=== PATIENT | male | born 1955 | race Caucasian/White ===

== ENCOUNTER 2019-09-28 06:00 | Outpatient (RCR) | payer MEDICAID, SELFPAY | END 2019-10-28 00:01 | LOC: SPT 06:00 | PROVIDERS: Family Provider Nurse Practitioner; Visit Provider Nurse Practitioner Family | DX: I69.30 Unspecified sequelae of cerebral infarction (principal); M25.551 Pain in right hip; M54.5 Low back pain | CPT/HCPCS: 97110 ×2 ==

== ENCOUNTER 2019-10-29 06:00 | Outpatient (RCR) | payer MEDICAID, SELFPAY | END 2019-11-28 23:59 | disposition home or self-care (01) | LOC: SPT 06:00 | PROVIDERS: Family Provider Nurse Practitioner; PCP Nurse Practitioner; Visit Provider Nurse Practitioner Family | DX: M54.5 Low back pain (principal); M25.551 Pain in right hip ==

== ENCOUNTER 2020-06-23 08:30 | Outpatient (CLI) | payer MEDICARE, MEDICAID, SELFPAY ==
--- NOTE | 2020-06-23 08:35 | USCV_ITS ---
Moisés Mann Age: 65 Gender: M : 1955 Exam Date: 06/23/2020 08:51 Ordering Phys: Daksha Bhatia APN Technologist: Yohana Peterson [place] [facility] [place]: AORTA SCREENING HISTORY: Diameter (cm) AP x Transverse x Length Velocity (cm/s) Waveform Prox Aorta: 1.26 x 1.61 x 33.10 Mid Aorta: 1.75 x 2.09 x 38.45 Distal Aorta: 1.47 x 1.85 x 44.60 Right Iliac Prox: 0.72 x 0.75 x 216.30 Left Iliac Prox: 0.65 x 0.89 x 138.90 Stent Prox Landing x x Aneurysmal Sac Max x x Lt Lat Sac Dim Rt Lat Sac Dim Stent Dist Landing x x Right Iliac Stent x x Left Iliac Stent x x Right Renal Art Left Renal Art FINDINGS: Mild to moderate diffuse plaques in the abdominal aorta. Elevated Doppler velocities in the right proximal common iliac artery CONCLUSIONS #1. No evidence of any abdominal aortic aneurysm. #2. Mild to moderate diffuse plaques in the abdominal aorta. #3. Elevated velocity in the right proximal common iliac artery suggestive of greater than 50% stenosis No similar previous studies are available for comparison Dr Maria Esther Smith MD [facility] (Electronically Signed) Final Date: 23 June 2020 18:15 S
--- NOTE | 2020-06-23 08:35 | XRR_ITS ---
PROCEDURE INFORMATION: Exam: XR Chest, 2 Views Exam date and time: 06/23/2020 9:18 AM Age: 65 years old Clinical indication: Condition or disease; Lung condition and disease; Asthma; Severity not specified; Shortness of breath TECHNIQUE: Imaging protocol: XR of the chest Views: 2 views. COMPARISON: CR Chest 1 [place] [id number] 05/06/2015 8:55 PM FINDINGS: Lungs: Lungs are well aerated without a focal area of consolidation. Pleural space: Unremarkable. No pleural effusion. No pneumothorax. Heart/Mediastinum: Unremarkable. No cardiomegaly. Bones/joints: Numerous old rib fractures on the right XR/XR chest 2V* [id number] IMPRESSION: Lungs are well aerated without a focal area of consolidation.
== END 2020-06-23 08:31 | disposition home or self-care (01) ==
LOC: US 08:31
PROVIDERS: PCP Nurse Practitioner; Visit Provider Nurse Practitioner
DX: Z13.6 Encounter for screening for cardiovascular disorders (principal); Z72.0 Tobacco use
CPT/HCPCS: 71046; 76706

== ENCOUNTER 2020-08-11 09:33 | Outpatient (CLI) | payer MEDICARE, MEDICAID, SELFPAY ==
--- NOTE | 2020-08-11 10:53 | PFTS_ITS ---
Date of Study:08/11/20 Date of Dictation: MECHANICS: Forced vital capacity (FVC) is . Forced expiratory volume in one second (FEV1) is . FEV1/FVC is . FLOW VOLUME LOOP: . LUNG VOLUMES: Total lung capacity (TLC) is . Residual volume (RV) is . DIFFUSING CAPACITY FOR CARBON MONOXIDE: . INTERPRETATION: The pulmonary function tests are . mechanics and lung volumes. Gas exchange (DLCO) is . MTDD
--- NOTE | 2020-08-11 14:22 | PFTS_ITS ---
Date of Study:08/11/20 Date of Dictation: MECHANICS: Forced vital capacity (FVC) is reduced. Forced expiratory volume in one second (FEV1) is reduced. FEV1/FVC is reduced. FLOW VOLUME LOOP: Reduced flow at all lung volumes. LUNG VOLUMES: Total lung capacity (TLC) is normal. Residual volume (RV) is increased. DIFFUSING CAPACITY FOR CARBON MONOXIDE: Mildly reduced. INTERPRETATION: The pulmonary function tests are consistent with severe airflow obstruction. Lung volumes are consistent with air trapping. Gas exchange (DLCO) is mildly reduced. MTDD
== END 2020-08-11 09:34 | disposition home or self-care (01) ==
LOC: RT 09:36
PROVIDERS: PCP Nurse Practitioner; Visit Provider Nurse Practitioner
DX: J45.909 Unspecified asthma, uncomplicated (principal)
CPT/HCPCS: 94010; 94726; 94729

== ENCOUNTER 2020-10-05 13:31 | Outpatient (CLI) | payer MEDICARE, MEDICAID, SELFPAY ==
--- NOTE | 2020-10-05 13:30 | USCV_ITS ---
Moisés Mann Age: 65 Gender: M : 1955 Exam Date: 10/05/2020 14:11 Ordering Phys: Leonardo Sylvester MD Technologist: Steven Vasquez Exam Location: [facility] – [place] Indication: CHEST PAIN BP: 135 / 78 HR: 62 Rhythm: Sinus Technical Quality: Fair MEASUREMENTS (Male / Female) Normal Values 2D ECHO LV Diastolic Diameter PLAX 3.6 cm 4.2 - 5.9 / 3.9 - 5.3 cm LV Systolic Diameter PLAX 2.1 cm IVS Diastolic Thickness 1.0 cm 0.6 - 1.0 / 0.6 - 0.9 cm IVS Systolic Thickness 1.5 cm LVPW Diastolic Thickness 1.0 cm 0.6 - 1.0 / 0.6 - 0.9 cm LVPW Systolic Thickness 1.3 cm LVOT Diameter 2.0 cm LV Ejection Fraction 2D Teich 73.4 % LV Ejection Fraction MOD 2C 68.5 % LV Ejection Fraction 2C AL 68.4 % LA Diameter 3.3 cm LA Width 3.3 cm LA Height 4.5 cm RA Width 3.4 cm RA Height 3.7 cm Aorta at Sinotubular Diameter 2.2 cm M-MODE LV Diastolic Diameter MM 5.2 cm 4.2 - 5.9 / 3.9 - 5.3 cm LV Systolic Diameter MM 4.0 cm LV Ejection Fraction MM Teich 44.1 % IVS Diastolic Thickness MM 1.0 cm 0.6 - 1.0 / 0.6 - 0.9 cm IVS Systolic Thickness MM 1.5 cm LVPW Diastolic Thickness MM 1.5 cm 0.6 - 1.0 / 0.6 - 0.9 cm LVPW Systolic Thickness MM 1.8 cm RV Diastolic Diameter MM 1.2 cm Aortic Annulus Diameter 3.5 cm LA Ao Ratio MM 1.1 MV E Point Septal Separation 0.7 cm DOPPLER AV Peak Velocity 145.0 cm/s LVOT Peak Velocity 100.0 cm/s AV Area Cont Eq vti 2.3 cm squared AV Area Cont Eq pk 2.2 cm squared MV Area PHT 5.0 cm squared Mitral E to A Ratio 1.1 MV E' Velocity 48.0 cm/s Mitral E to MV E' Ratio 8.4 Mitral E to LV E' Lateral Ratio 8.3 Mitral E to LV E' Septal Ratio 8.7 TR Peak Velocity 117.3 cm/s TR Peak Gradient 5.5 mmHg TV Peak E Velocity 93.0 cm/s Right Atrial Pressure 3.0 mmHg Pulmonary Artery Systolic Pressu 8.5 mmHg FINDINGS Left Ventricle Normal left ventricular size and systolic function, EF 71 %. No regional wall motion abnormalities. Right Ventricle The right ventricle is normal in size and function. Right Atrium The right atrium is normal in size. Left Atrium The left atrium is normal in size. Mitral Valve Trace mitral valve regurgitation. Aortic Valve Thickened aortic valve. Tricuspid Valve No gross abnormalities noted Pulmonic Valve No gross abnormalities noted Pericardium Normal pericardium without effusion. Aorta Normal ascending aorta dimension. CONCLUSIONS Normal left ventricular size and systolic function, EF 71 %. No regional wall motion abnormalities. Trace mitral valve regurgitation. Thickened aortic valve. There is no pericardial effusion. There are no intracardiac masses. No previous study is available for comparison. Dr Maria Esther Smith MD [facility] (Electronically Signed) Final Date: 06 October 2020 09:42 S
--- NOTE | 2020-10-05 13:51 | CT_ITS ---
WS: [id number] LDCT LUNG CANCER SCREENING HISTORY: NICOTINE DEPENDENCE TECHNIQUE: Axial imaging performed from the apices to 1 cm below the costophrenic angles. Coronal and sagittal reformats are submitted with axial MIP series. All CT scans at [facility] use at least one of these dose optimization techniques: automated exposure control; mA and/or kV adjustment per patient size (includes targeted exams where dose is matched to clinical indication); or iterativ e reconstruction. DLP: 54.98 mGy.cm DIvol: 1.58 mGy COMPARISON: None available. Diagnostic quality: Satisfactory Lung Nodules: Partially calcified 3 mm nodule LEFT lower lobe, image 164 of series 3. Lungs: Pulmonary hyperexpansion. Linear areas of scarring at the apices. Heart: Normal size heart. Mild coronary artery atherosclerosis. Other findings: Mild atherosclerosis thoracic aorta. There is mild ectasia with no aneurysm. Normal s ize pulmonary artery. Mild increase in thoracic kyphosis. No osteoblastic or osteolytic bone disease. CT/CT lung screening [id number] IMPRESSION: LUNG-RADS: 1-Negative FOLLOW UP: 12 Month: Continue annual screening with LDCT OTHER FINDINGS (S MODIFIER): None.
== END 2020-10-05 13:32 | disposition home or self-care (01) ==
LOC: RAD 13:38
PROVIDERS: PCP Nurse Practitioner; Visit Provider Internal Medicine Pulmonary Disease
DX: Z12.2 Encounter for screening for malignant neoplasm of respiratory organs (principal); R06.02 Shortness of breath; F17.210 Nicotine dependence, cigarettes, uncomplicated; I08.0 Rheumatic disorders of both mitral and aortic valves; R91.1 Solitary pulmonary nodule; I25.10 Atherosclerotic heart disease of native coronary artery without angina pectoris; I70.0 Atherosclerosis of aorta; I77.819 Aortic ectasia, unspecified site
CPT/HCPCS: 93306; G0297

== ENCOUNTER 2021-08-03 09:10 | Outpatient (CLI) | payer MEDICARE, MEDICAID, SELFPAY ==
--- NOTE | 2021-08-03 09:30 | USCV_ITS ---
Moisés Mann Age: 66 Gender: M : 1955 Exam Date: 08/03/2021 09:33 Ordering Phys: Daksha Bhatia APN Technologist: [place] [facility] [place]: SCREENING HISTORY: Diameter (cm) AP x Transverse x Length Velocity (cm/s) Waveform Prox Aorta: 1.84 x 2.02 x 51.90 Biphasic Mid Aorta: 2.03 x 2.00 x 51.90 Biphasic Distal Aorta: 1.44 x 1.70 x 56.10 Biphasic Right Iliac Prox: 0.78 x 1.06 x 182.00 Biphasic Left Iliac Prox: 0.81 x 1.25 x 162.00 Biphasic Stent Prox Landing x x Aneurysmal Sac Max x x Lt Lat Sac Dim Rt Lat Sac Dim Stent Dist Landing x x Right Iliac Stent x x Left Iliac Stent x x Right Renal Art Left Renal Art FINDINGS: Comparison:. 06/23/20. Limited evalualtion due to body habitus. Ectatic abdominal aorta with evidence of atherosclerotic plaque noted. Normal Doppler flow velocites noted throught the aorta and common iliac arteries. CONCLUSIONS Ectatic abdominal aorta with evidence of atherosclerotic plaque noted. Limited evaluation but not aneurysm seen. Dr. Tiffanie Bran DO (Electronically Signed) Final Date: 03 August 2021 10:22 S
== END 2021-08-03 09:11 | disposition home or self-care (01) ==
LOC: US 09:12
PROVIDERS: PCP Nurse Practitioner; Visit Provider Nurse Practitioner
DX: Z13.6 Encounter for screening for cardiovascular disorders (principal); I77.811 Abdominal aortic ectasia
CPT/HCPCS: 76706

== ENCOUNTER 2021-11-02 06:00 | Outpatient (RCR) | payer MEDICARE, MEDICAID, SELFPAY | END 2021-11-28 23:59 | disposition home or self-care (01) | LOC: SOT 06:00 | PROVIDERS: PCP Nurse Practitioner; Visit Provider Family Medicine | DX: G81.91 Hemiplegia, unspecified affecting right dominant side (principal) | CPT/HCPCS: 97167 ==

== ENCOUNTER 2022-04-06 08:09 | Outpatient (CLI) | payer MEDICARE, MEDICAID, SELFPAY ==
--- NOTE | 2022-04-06 08:19 | USCV_ITS ---
Moisés Mann Age: 67 Gender: M : 1955 Exam Date: 04/06/2022 08:49 Ordering Phys: Daksha Bhatia APN Technologist: Elvis Calloway Exam Location[place] [facility] [place]ication: screening HISTORY: Diameter (cm) AP x Transverse x Length Velocity (cm/s) Waveform Prox Aorta: 1.60 x 1.96 x 50.50 Mid Aorta: 1.92 x 2.02 x 59.10 Distal Aorta: 2.16 x 2.26 x 40.00 Right Iliac Prox: 0.92 x 1.34 x 133.20 Left Iliac Prox: 1.03 x 0.96 x 106.30 Stent Prox Landing x x Aneurysmal Sac Max x x Lt Lat Sac Dim Rt Lat Sac Dim Stent Dist Landing x x Right Iliac Stent x x Left Iliac Stent x x Right Renal Art Left Renal Art FINDINGS: CONCLUSIONS Minimal arteriovascular disease within the abdominal aorta. No evidence of abdominal aortic or bilateral iliac aneurysm. Sriram Pelletier MD (Electronically Signed) Final Date: 06 April 2022 10:36 S
== END 2022-04-06 08:10 | disposition home or self-care (01) ==
LOC: RAD 08:12
PROVIDERS: PCP Nurse Practitioner; Visit Provider Nurse Practitioner
DX: Z13.6 Encounter for screening for cardiovascular disorders (principal)
CPT/HCPCS: 76706

== ENCOUNTER → 2023-01-18 10:37 | Outpatient (BNVA) | payer MEDICARE, MEDICAID, SELFPAY | PROVIDERS: PCP Nurse Practitioner Family; Visit Provider Internal Medicine Cardiovascular Disease | DX: R55 Syncope and collapse (principal) | CPT/HCPCS: 93225 ==

== ENCOUNTER 2023-04-10 08:48 | Outpatient (CLI) | payer MEDICARE, MEDICAID, SELFPAY ==
--- NOTE | 2023-04-10 09:06 | USCV_ITS ---
Moisés Mann Age: 68 Gender: M : 1955 Exam Date: 04/10/2023 09:33 Ordering Phys: Osiris Quispe NP Technologist: Exam Location: [facility] [place] Indication: chest pain BP: 132 / 74 HR: 56 Rhythm: Sinus Technical Quality: Adequate MEASUREMENTS (Male / Female) Normal Values 2D ECHO LV Diastolic Diameter PLAX 3.3 cm 4.2 - 5.9 / 3.9 - 5.3 cm LV Systolic Diameter PLAX 2.2 cm IVS Diastolic Thickness 1.2 cm 0.6 - 1.0 / 0.6 - 0.9 cm IVS Systolic Thickness 1.3 cm LVPW Diastolic Thickness 1.3 cm 0.6 - 1.0 / 0.6 - 0.9 cm LVPW Systolic Thickness 1.2 cm LVOT Diameter 2.0 cm LV Ejection Fraction 2D Teich 63.8 % LV Ejection Fraction MOD 2C 82.9 % LV Ejection Fraction 2C AL 83.4 % LA Diameter 3.0 cm IVC Diameter 0.9 cm M-MODE Aortic Annulus Diameter 3.2 cm LA Ao Ratio MM 0.9 MV E Point Septal Separation 1.3 cm DOPPLER AV Peak Velocity 165.0 cm/s LVOT Peak Velocity 112.0 cm/s AV Area Cont Eq vti 2.7 cm squared AV Area Cont Eq pk 2.2 cm squared MV Area PHT 3.4 cm squared Mitral E to A Ratio 1.6 MV E' Velocity 60.0 cm/s Mitral E to MV E' Ratio 10.1 Mitral E to LV E' Lateral Ratio 9.9 Mitral E to LV E' Septal Ratio 10.4 TR Peak Velocity 158.3 cm/s TR Peak Gradient 10.0 mmHg TV Peak E Velocity 97.0 cm/s Right Atrial Pressure 3.0 mmHg Pulmonary Artery Systolic Pressu 13.0 mmHg RV Acceleration Time 0.1 s FINDINGS Left Ventricle Left ventricle is normal in size. LV systolic function is normal with EF of 55 to 60%. No regional wall motion abnormalities are seen. Right Ventricle Normal in size and function Right Atrium Normal in size Left Atrium Normal in size Mitral Valve Structurally normal mitral valve. Trace mitral regurgitation. Aortic Valve Aortic valve is thickened and calcified. No significant stenosis or regurgitation. Tricuspid Valve Mild tricuspid regurgitation. Insufficient TR jet to evaluate RVSP. Pulmonic Valve Not well visualized Pericardium Normal Aorta Normal in size IVC Appears to be normal CONCLUSIONS LV systolic function is normal with EF of 55 to 60%. Trace mitral regurgitation Mild tricuspid regurgitation No comparison studies are available Jeff English MD (Electronically Signed) Final Date: 21 April 2023 12:59 S
== END 2023-04-10 08:49 | disposition home or self-care (01) ==
LOC: RAD 08:49
PROVIDERS: PCP Nurse Practitioner Family; Visit Provider Nurse Practitioner Family
DX: I10 Essential (primary) hypertension (principal); R07.9 Chest pain, unspecified; R55 Syncope and collapse; R60.9 Edema, unspecified; I07.1 Rheumatic tricuspid insufficiency
CPT/HCPCS: 93306

== ENCOUNTER 2023-05-10 09:46 | Outpatient (CLI) | payer MEDICARE, MEDICAID, SELFPAY ==
--- NOTE | 2023-05-10 09:57 | CT_ITS ---
WS: [id number] LDCT LUNG CANCER SCREENING TECHNIQUE: Noncontrast CT of the chest with coronal and sagittal reformatted images. CLINICAL INFORMATION: NICOTINE DEPENDENCE,CIGARETTES COMPARISON: October 05, 2020 DLP: 52.40 mGy.cm DIvol: Mean CTDIvol: 1.00 (mGy) All CT scans at [facility] use at least one of these dose optimization techniques: automat ed exposure control; mA and/or kV adjustment per patient size (includes targeted exams where dose is matched to clinical indication); or iterative reconstruction. FINDINGS: Moderate chronic emphysematous changes. Hazy slightly irregular spiculated opacity RIGHT up per lobe measuring 9 mm is new from previous. A few additional tiny subcentimeter nodules in RIGHT upper lobe some in a subpleural location. New cl uster of nodular opacities in the RIGHT upper lobe anteriorly adjacent to the fissure likely inflamma tory. Additional hazy opacities with a few micronodules the RIGHT middle lobe. Hazy groundglass opacity in the LEFT upper lobe anteriorly measuring 8.5 mm is indeterminant but may represent fibrosis. Noncalcified nodule LEFT upper lobe measuring 4 mm. Additional noncalcified nodu le LEFT upper lobe along the mediastinum measuring 3 mm. Normal caliber thoracic aorta. Aortic calcification. No mediastinal or hilar lymphadenopathy. Coronar y calcification. Aberrant RIGHT subclavian artery. No mediastinal or hilar lymphadenopathy. No axilla ry lymphadenopathy. Adrenal glands are normal. Normal GE junction. Mild thoracic kyphosis. Mild thoracic curve. CT/CT lung screening [id number] IMPRESSION: 1. New hazy groundglass opacity RIGHT upper lobe is new from previous and inde terminant. Measures approximately 9 mm recommend 3 month follow-up. 2. Additional subcentimeter tiny nodules bilaterally. 3. New hazy opacities and small clustered micronodules RIGHT upper lobe anter iorly and RIGHT middle lobe likely inflammatory. 4. New hazy groundglass opacity LEFT upper lobe anteriorly abutting the pleura . This measures 8.4 mm. Recommend 3 month follow-up. LUNG-RADS: 4A-Probably Suspicious FOLLOW UP: 3 Month LDCT
== END 2023-05-10 09:47 | disposition home or self-care (01) ==
LOC: RAD 09:50
PROVIDERS: PCP Nurse Practitioner Family; Visit Provider Nurse Practitioner Family
DX: Z12.2 Encounter for screening for malignant neoplasm of respiratory organs (principal); F17.210 Nicotine dependence, cigarettes, uncomplicated
CPT/HCPCS: 71271

== ENCOUNTER 2023-05-16 07:46 | Outpatient (CLI) | payer MEDICARE, MEDICAID, SELFPAY ==
--- NOTE | 2023-05-16 | ECG_ITS ---
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 Interpretive Statements NAME OF STUDY: LEXISCAN SESTAMIBI STRESS TEST INDICATION: Shortness of Breath, PROCEDURE: At the baseline, the EKG revealed sinus bradycardia with a normal ST Ts.. The baseline heart was 59 bpm with a blood pressue of 157/89 mm of Hg Lexiscan was infused over a period of 20 seconds. A total of 0.4 milligrams of Lexiscan was infused. The stress phase was continued for a total of 5 minutes. Heart rate at the end of the stress phase was 84 bpm with a blood pressure 141/55 mm of Hg. The EKG at the peak infusion revealed no significant changes. Sestamibi was injected 20 seconds after the Lexiscan infusion. Heart rate at the end of the recovery phase was 68 bpm with a blood pressure of 118/92 mm of Hg. CONCLUSION: 1. No significant EKG changes with the LexiScan infusion 2. No LexiScan induced chest pain or cardiac arrhythmia 3. Normal blood pressure and heart rate response 4. Sestamibi/sestamibi perfusion scan pending; see separate report. Electronically Signed On 05-24-2023 8:45:09 CDT by Maria Esther Smith M.D. [id number]
[2023-05-16 07:54] VITALS: BMI 24.9
--- NOTE | 2023-05-16 07:55 | NMCV_ITS ---
NM lori perf SPECT r/s* [id number] Moisés Mann Age: 68 Gender: M : 1955 Exam Date: 05/16/2023 09:04 Ordering Phys: Osiris Quispe NP Technologist: MARISSA Waddell Exam Location: [facility] Indications: SHORTNESS OF BREATH SUPRACENTRICULAR TACHYCARDIA STRESS TEST Please see separate stress test report in [facility] for full findings IMAGE PROTOCOL Rest/Stress 1 Lexiscan Day Radiopharmaceutical Dose (mCi) Administration Site Administered by Rest: Tc-99m 10.7 IV MARISSA Humphreys Sestamibi Stress:Tc-99m 32.4 IV MARISSA Humphreys Sestamibi Rest: 16-May-2023 60 Discovery 630 Stress: 16-May-2023 30 Discovery 630 0.4mg Lexiscan. Images obtained in supine and prone position. SPECT RESULTS Technical Quality: Excellent Raw Data Analysis: Normal Image Corrections: No attenuation or motion correction applied Summed Stress Score: 5 Summed Rest Score: 6 Summed Difference Score: 0 PERFUSION FINDINGS A small area of minimal to moderately decreased tracer uptake in the inferior and apical lateral regions with no significant reversibility FUNCTIONAL RESULTS (calculated via Gated SPECT) Stress Image LV EF (%): 81 Stress EDV (mL):57 TID: 1.12 Stress ESV (mL):11 FUNCTIONAL FINDINGS: Segmental wall motion analysis revealing no gross wall motion abnormalities IMPRESSIONS 1. Myocardial perfusion imaging revealing a small area of persistent decreased tracer uptake in the inferior and apical lateral regions suggesting myocardial scarring versus attenuation artifact. 2. Normal LV ejection fraction of 81%. 3. LV wall motion analysis revealing no gross wall motion abnormalities. 4. Normal LV volume Low probability for coronary ischemia, based on the above findings. No similar previous studies are available for comparison Dr Maria Esther Smith MD [facility] (Electronically Signed) Final Date: 16 May 2023 20:16 S
[2023-05-16] MEDS: regadenoson 0.4 Mg/5 ml Syringe IVP (09:31)
[2023-05-16 10:00] VITALS: BP 159/92; PULSE 68
== END 2023-05-16 07:47 | disposition home or self-care (01) ==
LOC: CDL 07:47
PROVIDERS: PCP Nurse Practitioner Family; Visit Provider Nurse Practitioner Family
DX: R06.02 Shortness of breath (principal)
CPT/HCPCS: 36415; 78452; 93017; 96374; A9500; J2785

== ENCOUNTER → 2023-06-13 10:21 | Outpatient (BNVA) | payer MEDICARE, MEDICAID, SELFPAY | PROVIDERS: PCP Nurse Practitioner Family; Visit Provider Internal Medicine Cardiovascular Disease | DX: J43.9 Emphysema, unspecified (principal); F17.210 Nicotine dependence, cigarettes, uncomplicated | CPT/HCPCS: 99203 ==

== ENCOUNTER → 2023-06-25 14:11 | Outpatient (BNVA) | payer MEDICARE, MEDICAID, SELFPAY | PROVIDERS: PCP Nurse Practitioner Family; Visit Provider Internal Medicine Pulmonary Disease | DX: J30.2 Other seasonal allergic rhinitis (principal); R91.8 Other nonspecific abnormal finding of lung field; J43.9 Emphysema, unspecified; Z71.6 Tobacco abuse counseling; F17.210 Nicotine dependence, cigarettes, uncomplicated | CPT/HCPCS: 99214 ==

== ENCOUNTER 2023-07-17 08:27 | Outpatient (CLI) | payer MEDICARE, MEDICAID, SELFPAY ==
[2023-07-17 09:02] VITALS: PULSE 61; RESP 18; O2SAT 97
[2023-07-17] MEDS: albuterol 2.5 mg/3 mL Neb INHALATION (09:02)
[2023-07-17 09:07] VITALS: PULSE 56
== END 2023-07-17 08:28 | disposition home or self-care (01) ==
LOC: RT 08:29
PROVIDERS: PCP Nurse Practitioner Family; Visit Provider Internal Medicine Pulmonary Disease
DX: R06.02 Shortness of breath (principal)
CPT/HCPCS: 94060; 94618; 94726; 94729; J7613

== ENCOUNTER 2023-07-31 14:41 | Outpatient (CLI) | payer MEDICARE, MEDICAID, SELFPAY ==
--- NOTE | 2023-07-31 14:30 | CT_ITS ---
WS: [id number] CT CHEST TECHNIQUE: Noncontrast CT of the chest with coronal and sagittal reformatted images. CLINICAL INFORMATION: f/u abnormal lung screen COMPARISON: CT 05/10/2023 DLP: 369.[address] scans at [facility] use at least one of these dose optimization techniques: automated e xposure control; mA and/or kV adjustment per patient size (includes targeted exams where dose is matc hed to clinical indication); or iterative reconstruction. FINDINGS: The previously described groundglass opacity RIGHT upper lobe measuring 9 mm has resolved. Additional hazy opacities in the RIGHT upper lobe anteriorly have resolved. Previously described grou ndglass opacity LEFT upper lobe anteriorly measuring 8 mm also appears resolved. Stable pleural thickening in the lung apices. Stable scattered tiny subcentimeter micronodules bilate rally. No new suspicious pulmonary parenchymal opacities. Moderate chronic emphysematous changes. Aberrant RIGHT subclavian artery. Aortic calcification. Coron gonzalez calcification. No mediastinal or hilar lymphadenopathy. No axillary lymphadenopathy. Adrenal glands are normal. Normal GE junction. IMPRESSION: 1. Previously described 8 to 9 mm hazy opacities in the upper lobes have resolved and were likely in flammatory. 2. No other significant change compared to previous. 3. Few scattered tiny micronodules similar to previous. 4. No mediastinal or hilar lymphadenopathy. 5. Recommend continued annual LDCT.
== END 2023-07-31 14:42 | disposition home or self-care (01) ==
PROVIDERS: PCP Nurse Practitioner Family; Visit Provider Internal Medicine Pulmonary Disease
DX: R91.8 Other nonspecific abnormal finding of lung field (principal)
CPT/HCPCS: 71250

== ENCOUNTER 2023-12-31 11:10 | Inpatient (IN) | payer OTHER, MEDICAID, SELFPAY ==
[2023-12-31] VITALS (15 sets, daily range): BP systolic 100–133; BP diastolic 51–65; PULSE 51–93; RESP 18–28; TEMP 36.4–36.8; O2SAT 90–98; BMI 25.0; BMI 25.2
--- NOTE | 2023-12-31 11:15 | ECG_ITS ---
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 Measurements Intervals [place] Rate: 53 P: 56 AL: 137 QRS: 66 QRSD: 88 T: 59 QT: 421 QTc: 399 Interpretive Statements SINUS BRADYCARDIA Compared to ECG 05/06/2015 20:40:06 Sinus rhythm no longer present Electronically Signed On 12-31-2023 13:29:08 [employer] MANAGER by Jeff English M.D. [id number] f
--- NOTE | 2023-12-31 11:20 | XRR_ITS ---
PROCEDURE INFORMATION: Exam: XR Chest Exam date and time: 12/31/2023 11:31 AM Age: 68 years old Clinical indication: Dyspnea TECHNIQUE: Imaging protocol: Radiologic exam of the chest. Views: 1 view. COMPARISON: CT chest con [id number] 07/31/2023 3:01 PM FINDINGS: Lungs: Patchy bilateral infiltrates, left side greater than right. Pleural spaces: Unremarkable. No pleural effusion. No pneumothorax. Heart/Mediastinum: Subtle right-sided hilar lymphadenopathy, most likely reactive. Bones/joints: Unremarkable. XR/XR chest 1V portable [id number] IMPRESSION: 1. Patchy bilateral infiltrates, left side greater than right. 2. Subtle right-sided hilar lymphadenopathy, most likely reactive.
--- NOTE | 2023-12-31 11:23 | W.ED.SOB ---
HPI - SOB/Dyspnea General: Chief Complaint: Shortness of Breath/Dyspnea Stated Complaint: resp distress Time Seen by Provider: 12/31/23 11:11 Source: patient Mode of arrival: ambulatory History of Present Illness: HPI Narrative: 68-year-old male comes into the emergency room history of COPD worsening breathing for the last several days he has noticed improvement since he was given nebulizers and route he has a low-grade fever at home. Mildly productive cough he was given albuterol and Solu-Medrol and route. On arrival here he was initially on oxygen 2 L by nasal cannula he does not normally wear oxygen oxygen was stopped and he maintains his sats in the low 90s he denies chest pain. MD elicited complaint: shortness of breath Pertinent past history: COPD Timing: constant Severity: mild Exacerbating factors: nothing Relieving factors: nothing Known history of: COPD Associated symptoms: Deny abdominal pain, chest congestion, chest pain, cough, diaphoresis, dizziness, extremity pain, fever(s), hemoptysis, lightheadedness, myalgias, nausea, orthopnea, palpitations, paresthesias, polydipsia, polyuria, rash, sense of impending doom, syncope or vomiting Treatment prior to arrival: none Review of Systems Const: Denies: fever(s), chills or diaphoresis Card: Denies: chest pain, palpitations, lightheadedness, syncope or orthopnea Resp: Denies: dyspnea, hemoptysis or chest congestion GI: Denies: abdominal pain, nausea or vomiting : Denies: dysuria, urinary frequency or urinary urgency Musc: Denies: neck pain, back pain or extremity pain Skin/Breast: Denies: rash Neuro: Denies: dizziness Endo: Denies: polyuria or polydipsia [facility] PFSH: Medical History SOB (shortness of breath) Social History Smoking and tobacco/nicotine status: current every day tobacco/nicotine user cigarettes Packs smoked per day: 1 [ Other cigarette details: [id number]] Quit status (tobacco/nicotine): has tried quititng Second hand smoke exposure: Yes Alcohol intake: current Alcohol intake frequency: 0-2 Drinks per Day Substance/Drug Use: former Lives independently: Yes Household members: none Marital status: Single service: Yes Current occupational status: disabled Do you think of yourself as: Straight/Heterosexual Current gender identity: Male Physical Exam Const: COMMON NORMALS: no acute distress GENERAL APPEARANCE: cooperative and comfortable ORIENTATION/CONSCIOUSNESS: Yes awake, Yes oriented to person, Yes oriented to place and Yes oriented to time HENMT: COMMON NORMALS: normocephalic, atraumatic and hearing grossly normal bilaterally HEAD & SCALP: normocephalic and atraumatic Resp: COMMON NORMALS: normal respiratory effort, No retractions, No use of accessory muscles and clear to auscultation bilaterally AUSCULTATION: clear to auscultation bilaterally Cardio: COMMON NORMALS: regular rate, regular rhythm and No murmurs present (Cardio) RATE: regular rate RHYTHM: regular rhythm GI: COMMON NORMALS: Soft to palpation and No hepatosplenomegaly present AUSCULTATION: Yes normoactive bowel sounds PALPATION: Yes Soft to palpation, No Tenderness to palpation present (GI), No Guarding due to palpation present (GI) and Yes No hepatosplenomegaly present Extremity: COMMON NORMALS: normal to inspection, capillary refill normal, no clubbing, cyanosis or edema, no calf tenderness and no pedal edema Neuro: SENSORIUM/ORIENTATION: Yes oriented to person, Yes oriented to place and Yes oriented to time Skin: COMMON NORMALS: no rashes or lesions noted GENERAL SKIN EXAM: no rashes or lesions noted Course Vital Signs: Vital signs: Vital Signs Temperature 98.2 F 12/31/23 11:17 Pulse Rate 69 12/31/23 14:42 Respiratory Rate 22 H 12/31/23 12:14 Blood Pressure 133/51 12/31/23 13:14 Pulse Oximetry 90 12/31/23 14:42 Oxygen Delivery Me thod Nasal Cannula 12/31/23 14:42 Oxygen Flow Rate 4 12/31/23 14:42 MDM - SOB/Dyspnea Medical Decision Making Exacerbation COPD appears to have pneumonia and is rebounding rather quickly did receive steroids and route by EMS. Will admit for aggressive pulmonary toilet. IV antibiotics nebulizers and IV steroids. Differential Diagnosis Likely acute exacerbation of chronic obstructive airways disease and community acquired pneumonia Medical Records I reviewed the patient's medical records. Lab Data I reviewed the patient's lab results. 12/31/23 11:36 12/31/23 11:36 Labs/Radiology: Radiology Impressions Chest X-Ray 12/31/23 11:20 IMPRESSION: 1. Patchy bilateral infiltrates, left side greater than right. 2. Subtle right-sided hilar lymphadenopathy, most likely reactive. Laboratory Results WBC 14.30 10^3/uL (3.29-11.43) H 12/31/23 11:36 RBC 3.66 10^6/uL (3.85-5.65) L 12/31/23 11:36 Hgb 10.60 g/dL (11.27-16.99) L 12/31/23 11:36 Hct 32.3 % (37-53) L 12/31/23 11:36 MCV 88.3 fl (82-101) 12/31/23 11:36 MCH 29.0 pg (27-33) 12/31/23 11:36 MCHC 32.8 g/dL (30-55) 12/31/23 11:36 RDW 13.9 % (12.1-15.1) 12/31/23 11:36 Plt Count 348 10^3/cmm (157-399) 12/31/23 11:36 MPV 8.9 fL (7.4-10.4) 12/31/23 11:36 Neut % (Auto) 80.7 % 12/31/23 11:36 Lymph % (Auto) 6.0 % 12/31/23 11:36 [place] % (Auto) 12.1 % 12/31/23 11:36 Eos % (Auto) 0.3 % 12/31/23 11:36 Baso % (Auto) 0.1 % 12/31/23 11:36 Neut # (Auto) 11.54 10^3/uL (1.8-7.7) H 12/31/23 11:36 Lymph # (Auto) 0.9 10^3/uL (0.8-4.8) 12/31/23 11:36 [place] # (Auto) 1.7 10^3/uL (0.2-0.9) H 12/31/23 11:36 Eos # (Auto) 0.0 10^3/uL (0.0-0.8) 12/31/23 11:36 Baso # (Auto) 0.0 10^3/uL (0.0-0.1) 12/31/23 11:36 Nucleated RBC % (auto) 0 % 12/31/23 11:36 Nucleated RBCs # 0.0 /100WBC 12/31/23 11:36 Sodium 123 mmol/L (136-145) L 12/31/23 11:36 Potassium 5.1 mmol/L (3.5-5.1) 12/31/23 11:36 Chloride 88 mmol/L (98-107) L 12/31/23 11:36 Carbon Dioxide 22 mmol/L (22-29) 12/31/23 11:36 Anion Gap 18.1 (5-19) 12/31/23 11:36 BUN 19 mg/dL (8-23) 12/31/23 11:36 Creatinine 1.0 mg/dL (0.7-1.2) 12/31/23 11:36 GFR Calculation 74.3 mL/min (90-130) L 12/31/23 11:36 Glucose 99 mg/dL (65-115) 12/31/23 11:36 Calculated Osmolality 258 mOsm/kg (285-295) L 12/31/23 11:36 Calcium 8.5 mg/dL (8.5-10.5) 12/31/23 11:36 Total Bilirubin 0.4 mg/dL (0.15-1.2) 12/31/23 11:36 AST 24 U/L (0-40) 12/31/23 11:36 ALT 30 U/L (0-41) 12/31/23 11:36 Alkaline Phosphatase 56 U/L (40-130) 12/31/23 11:36 Troponin T Baseline 21 ng/L (0-15) H 12/31/23 11:36 Troponin T 120 Minute 18.86 ng/L (0-15) H 12/31/23 13:32 Delta Troponin T -2.14 ABS# (0-10) L 12/31/23 13:32 Total Protein 5.7 g/dL (6.6-8.7) L 12/31/23 11:36 Albumin 3.5 g/dL (3.5-5.2) 12/31/23 11:36 Globulin 2.2 g/dL (1.3-4.6) 12/31/23 11:36 Urine Color Yellow (Yellow) 12/31/23 12:58 Urine Appearance Clear (CLEAR) 12/31/23 12:58 Urine pH 5 (5-7) 12/31/23 12:58 Ur Specific [place] 1.020 (1.005-1.030) 12/31/23 12:58 Urine Protein 1+ (Negative) H 12/31/23 12:58 Urine Glucose (UA) Norm (Normal) 12/31/23 12:58 Urine Ketones 1+ (Negative) H 12/31/23 12:58 Urine Blood Neg (Negative) 12/31/23 12:58 Urine Nitrate Negative (Negative) 12/31/23 12:58 Urine Bilirubin Neg (Negative) 12/31/23 12:58 Urine Urobilinogen Neg mg/dL (Negative) 12/31/23 12:58 Ur Leukocyte Esterase Negative (Negative) 12/31/23 12:58 Urine RBC 0-4 /hpf (0-2) H 12/31/23 12:58 Urine WBC 0-4 /hpf (0-5) H 12/31/23 12:58 Ur Squamous Epith Cells 0-4 /hpf (0-5) H 12/31/23 12:58 Amorphous Sediment 2+ /hpf 12/31/23 12:58 Urine Bacteria Trace /hpf (NONE) 12/31/23 12:58 Urine Mucus Trace /hpf 12/31/23 12:58 All radiology interpretation(s) finalized by discharge Discharge Plan Discharge Patient Disposition: Admitted As Inpatient Clinical Impression: Acute exacerbation of chronic obstructive airways disease, Community acquired pneumonia Condition: Stable Prescriptions: No Action metoprolol tartrate 100 mg tablet 100 mg PO DAILY pantoprazole 40 mg tablet,delayed release (DR/EC) 40 mg PO DAILY lisinopril 40 mg tablet 40 mg PO DAILY amlodipine 10 mg tablet 10 mg PO DAILY ipratropium-albuterol 0.5 mg-3 mg(2.5 mg base)/3 mL solution for nebulization 3 ml inhalation QID PRN (Reason: Shortness Of Breath Or Wheezing) fluticasone propionate [Allergy Relief (fluticasone)] 50 mcg/actuation spray,suspension 1 spray intranasal BID Rx Instructions: administer into each nostril naproxen 500 mg tablet 500 mg PO BID PRN (Reason: pain) albuterol sulfate 90 mcg/actuation HFA aerosol inhaler 2 puff inhalation Q6H PRN (Reason: Shortness Of Breath Or Wheezing) Breztri Aerosphere 160-9-4.8 mcg/actuation HFA aerosol inhaler 2 inh inhalation BID Qty: 10.7 6RF prednisone 10 mg tablet 10 mg PO DAILY Referrals: Osiris Quispe, PLATE FINISHER [Primary Care Provider] - Patient Instructions: Opioid Safety, Pain Management Coding Level of Care Code ED Bar Finish Operator for Brett Pope
[2023-12-31 11:53] LABS: Basophils % 0.1 %; Eosinophils % 0.3 %; Hematocrit 32.3 % (37-53); Lymphocytes # 0.9 10^3/uL (0.8-4.8); Mean Corpuscular HGB Conc 32.8 g/dL (30-55); Mean Corpuscular Volume 88.3 fl (82-101); Mean Platelet Volume 8.9 fL (7.4-10.4); Monocytes # 1.7 10^3/uL (0.2-0.9); Monocytes % 12.1 %; Neutrophils # 11.54 10^3/uL (1.8-7.7); Neutrophils % 80.7 %; Nucleated Red Blood Cells % 0 %; Platelet Count 348 10^3/cmm (157-399); Red Blood Count 3.66 10^6/uL (3.85-5.65); Red Cell Distribution Width 13.9 % (12.1-15.1)
[2023-12-31] MEDS: ipratropium-albuterol 3 mL Neb INHALATION ×3 (12:13→21:17)
[2023-12-31 12:17] LABS: Alanine Aminotransferase 30 U/L (0-41); Albumin Level 3.5 g/dL (3.5-5.2); Alkaline Phosphatase 56 U/L (40-130); Anion Gap 18.1 (5-19); Aspartate Amino Transferase 24 U/L (0-40); Blood Urea Nitrogen 19 mg/dL (8-23); Calcium 8.5 mg/dL (8.5-10.5); Carbon Dioxide 22 mmol/L (22-29); Chloride 88 mmol/L (98-107); Globulin 2.2 g/dL (1.3-4.6); Glomerular Filtration Rate 74.3 mL/min (90-130); Glucose 99 mg/dL (65-115); Osmolality Calculated 258 mOsm/kg (285-295); Potassium 5.1 mmol/L (3.5-5.1); Sodium 123 mmol/L (136-145); Total Bilirubin 0.4 mg/dL (0.15-1.2); Total Protein 5.7 g/dL (6.6-8.7)
[2023-12-31 12:22] LABS: Troponin(5th) Baseline 21 ng/L (0-15)
[2023-12-31] MEDS: sodium chloride 0.9% 1,000 ML 999 ML IV (13:12)
[2023-12-31] MEDS: cefTRIAXone 1,000 MG in sodium chloride 0.9% (plus) 50 ML 100 MG IV (13:13)
--- NOTE | 2023-12-31 13:20 | ECG_ITS ---
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 [id number]
[2023-12-31 13:28] LABS: Add Urine Microscopic? YES; Bacteria Urine TRACE /hpf; Bilirubin Urine Neg (Negative); Blood Urine Neg (Negative); Glucose Urine UA Norm (Normal); Ketones Urine 1+ (Negative); Leukocyte Esterase Urine Negative (Negative); Mucus Urine TRACE /hpf; Nitrate Urine Negative (Negative); Protein Urine 1+ (Negative); RBC Urine 0-4 /hpf (0-2); Squamous Epithelial Cell Urine 0-4 /hpf (0-5); Urine Appearance Clear (CLEAR); Urine Color Yellow (Yellow); Urobilinogen Urine Neg (Negative); WBC Urine 0-4 /hpf (0-5); pH Urine 5 (5-7)
[2023-12-31 13:29] LABS: Add Urine Culture? No; Amorphous Sediment Urine 2+ /hpf
[2023-12-31] MEDS: azithromycin 500 MG in sodium chloride 0.9% 250 ML 250 MG IV (13:44)
[2023-12-31 14:00] LABS: Troponin 5 2HR 18.86 ng/L (0-15)
[2023-12-31 14:01] LABS: Troponin 5 2HR Delta -2.14 ABS# (0-10)
--- NOTE | 2023-12-31 14:14 | P.HP_ITS ---
Documented by User: DARWIN Nath STD 12/31/23 15:04 Providers/Chief Complaint 2 Primary Care Provider: Osiris Quispe NP Chief Complaint: resp distress History of Present Illness Moisés Mann is a 68 year old male with past medical history of COPD, CVA with mild right-sided weakness, hypertension, GERD, osteoarthritis of both hips, who recently stopped smoking 6 months ago comes to emergency department for below listed complaints. Mr. Mann is a 68-year-old male with past medical history of COPD, CVA, hypertension. He reports he quit smoking about 6 months ago and that he is a current everyday drinker averaging about 6-10 beers a day. He presents to the emergency department with chief complaints of shortness of breath. Patient states that about the 3 days ago he started experiencing shortness of breath with exertion and with this he was experiencing symptoms of lightheadedness and nausea. To help relieve the shortness of breath he would have to take frequent breaks, or even sit down for a while and that it took about 15 minutes to catch his breath. He also mentions using his at home breathing treatments, to help with his SOB. Patient denies any pain in his chest, and states he does not use oxygen at home. He is currently on 4 L nasal cannula. Mr. Mann reports that he recently went to the doctor's office a week ago and today completed a week of antibiotics and steroids in hoping to help with shortness of breath. He did not feel as though he was getting better and decided come into the emergency department to be evaluated. While in the emergency department cbc, bmp, troponin, EKG, UA, chest x-ray were obtained. Patient received IV azithromycin, ceftriaxone, 1 L bolus, DuoNeb treatment. Plan is to admit patient to medical surgical floor for further treatment and care. Review of Systems 2 Const: Denies: fever(s), chills or body aches Eyes: Denies: change in vision, blurry vision, eye discharge or eye redness ENMT: Denies: throat pain, mouth pain or dental pain Card: Reports: lightheadedness, dyspnea on exertion and orthopnea; Denies: chest pain, palpitations or irregular heart rhythm Resp: Reports: dyspnea, productive cough and wheezing GI: Reports: nausea; Denies: abdominal pain, vomiting, diarrhea, hematochezia or melena : Denies: difficulty urinating, dysuria or urinary frequency Musc: Denies: neck pain, back pain or extremity pain Skin/Breast: Denies: rash, pruritus, erythema or sores Neuro: Reports: dizziness; Denies: headache(s) or frequent falls Medications/Allergies Home Medications Medication Instructions Recorded Confirmed Last Taken Type amlodipine 10 mg tablet 10 mg PO DAILY 09/16/20 12/31/23 12/31/23 History fluticasone propionate 50 1 spray intranasal BID 09/16/20 12/31/23 12/31/23 History mcg/actuation nasal spray,suspension (Allergy Relief (fluticasone)) ipratropium 0.5 mg-albuterol 3 mg 3 ml inhalation QID PRN Shortness 09/16/20 12/31/23 Unknown History (2.5 mg base)/3 mL nebulization Of Breath Or Wheezing soln lisinopril 40 mg tablet 40 mg PO DAILY 09/16/20 12/31/23 12/31/23 History metoprolol tartrate 100 mg tablet 100 mg PO DAILY 09/16/20 12/31/23 12/31/23 History pantoprazole 40 mg tablet,delayed 40 mg PO DAILY 09/16/20 12/31/23 12/31/23 History release naproxen 500 mg tablet 500 mg PO BID PRN pain 06/13/23 12/31/23 Unknown History albuterol sulfate 90 mcg/actuation 2 puff inhalation Q6H PRN 06/25/23 12/31/23 Unknown History aerosol inhaler Shortness Of Breath Or Wheezing budesonide 160 mcg-glycopyr 9 2 inh inhalation BID #10.7 grams 06/25/23 12/31/23 12/31/23 Rx mcg-formot 4.8 mcg/actuation HFA inhaler (Breztri Aerosphere) prednisone 10 mg tablet 10 mg PO DAILY 12/31/23 12/31/23 12/31/23 History Allergies Allergy/AdvReac Type Severity Reaction Status Date / Time No Known Allergies Allergy Verified 06/25/23 14:49 PFSH Acute 2 PFSH: Medical History (Updated 12/31/23 @ 16:29 by Emily Monreal MD) Abnormal CT lung screening 04/2023, repeat scan 07/2023 without same findings History of myocardial perfusion scan 04/2023 no EKG changes, low probability coronary ischemia History of echocardiogram 03/2023 EF 55-60% History of PFTs 06/2023 severe obstructive disease with no significant change with bronchodilators Osteoarthritis GERD (gastroesophageal reflux disease) Hypertension COPD with emphysema CVA (cerebral vascular accident) right sided weakness, mild residual Surgical History (Updated 12/31/23 @ 16:22 by Emily Monreal MD) History of coronary angioplasty ~2009 or earlier in [place], [place], had angioplasty of several vessels, no stents per him Social History (Updated 12/31/23 @ 18:42 by Emily Monreal MD) Smoking and tobacco/nicotine status: former use of tobacco/nicotine Second hand smoke exposure: Yes Alcohol intake: current Alcohol intake frequency: 3 or more drinks per day Alcohol type: beer Substance/Drug Use: former Additional social history: Quit smoking in mid/late 2022 Lives independently: Yes Household members: none Marital status: Single service: Yes Current occupational status: disabled Do you think of yourself as: Straight/Heterosexual Current gender identity: Male Vitals/I&O/Wt Last Vital Signs Temp 98.2 F 12/31/23 11:17 Pulse 60 12/31/23 13:14 Resp 22 H 12/31/23 12:14 BP 133/51 12/31/23 13:14 Pulse Ox 92 12/31/23 13:14 O2 Del Method Nasal Cannula 12/31/23 13:14 O2 Flow Rate 2 12/31/23 13:14 12/30/23 12/31/23 12/31/23 22:59 06:59 14:59 Intake Total 1000 / 1000 Balance 1000 / 1000 Weight last 48 hrs Weight 160 lb Physical Exam 2 Narrative: General exam is pleasant male audibly wheezy on 4 L NC of oxygen. HEENT: Atraumatic normocephalic. Oropharynx clear. Neck is supple. Cardiovascular regular rate and rhythm, Nomal. No murmur Lungs sounds noted to be coarse anterior bilaterally throughout and wheezes noted posterior bilaterally throughout. Abdomen soft, round. Non-tender. exams deferred Extremities no edema, no cyanosis or clubbing Skin no rash Neuro no obvious focal deficits. Patient alert and oriented x 4. Data 12/31/23 11:36 12/31/23 11:36 Other Labs: WBC 14.3, Neut #11.5 Na 123 Chloride 88 Chest x-ray IMPRESSION: 1. Patchy bilateral infiltrates, left side greater than right. 2. Subtle right-sided hilar lymphadenopathy, most likely reactive. A&P Assessment and plan (1) Community acquired pneumonia: Qualifiers: Laterality: left Lung location: lower lobe of lung Qualified Code(s): J18.9 - Pneumonia, unspecified organism (2) Acute exacerbation of chronic obstructive airways disease: (3) Nocturia: (4) Hyponatremia: (5) Hypertension: Qualifiers: Hypertension type: primary hypertension Qualified Code(s): I10 - Essential (primary) hypertension (6) History of coronary angioplasty: (7) GERD (gastroesophageal reflux disease): Qualifiers: Esophagitis presence: without esophagitis Qualified Code(s): K21.9 - Gastro-esophageal reflux disease without esophagitis (8) Osteoarthritis: Qualifiers: Osteoarthritis location: multiple joints Osteoarthritis type: primary Qualified Code(s): M15.9 - Polyosteoarthritis, unspecified (9) Alcohol use: Coding Level of Care Code 56736 Diagnoses Community acquired pneumonia of left lower lobe of lung J18.9 Laterality: left Lung location: lower lobe of lung Acute exacerbation of chronic obstructive airways disease J44.1 Nocturia R35.1 Hyponatremia E87.1 Primary hypertension I10 Hypertension type: primary hypertension History of coronary angioplasty Z98.61 Gastroesophageal reflux disease without esophagitis K21.9 Esophagitis presence: without esophagitis 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 Documented by User: Emily Monreal MD 12/31/23 20:45 Providers/Chief Complaint 2 Admitting Physician: Emily Monreal MD Chief Complaint: resp distress Review of Systems 2 General: Reports: Other (ROS as per HPI or as otherwise noted here) Resp: Denies: pain on inspiration or hemoptysis Medications/Allergies Home Medications Medication Instructions Recorded Confirmed Last Taken Type amlodipine 10 mg tablet 10 mg PO DAILY 09/16/20 12/31/23 12/31/23 History fluticasone propionate 50 1 spray intranasal BID 09/16/20 12/31/23 12/31/23 History mcg/actuation nasal spray,suspension (Allergy Relief (fluticasone)) ipratropium 0.5 mg-albuterol 3 mg 3 ml inhalation QID PRN Shortness 09/16/20 12/31/23 Unknown History (2.5 mg base)/3 mL nebulization Of Breath Or Wheezing soln lisinopril 40 mg tablet 40 mg PO DAILY 09/16/20 12/31/23 12/31/23 History metoprolol tartrate 100 mg tablet 100 mg PO DAILY 09/16/20 12/31/23 12/31/23 History pantoprazole 40 mg tablet,delayed 40 mg PO DAILY 09/16/20 12/31/23 12/31/23 History release naproxen 500 mg tablet 500 mg PO BID PRN pain 06/13/23 12/31/23 Unknown History albuterol sulfate 90 mcg/actuation 2 puff inhalation Q6H PRN 06/25/23 12/31/23 Unknown History aerosol inhaler Shortness Of Breath Or Wheezing budesonide 160 mcg-glycopyr 9 2 inh inhalation BID #10.7 grams 06/25/23 12/31/23 12/31/23 Rx mcg-formot 4.8 mcg/actuation HFA inhaler (Breztri Aerosphere) prednisone 10 mg tablet 10 mg PO DAILY 12/31/23 12/31/23 12/31/23 History Allergies Allergy/AdvReac Type Severity Reaction Status Date / Time No Known Allergies Allergy Verified 06/25/23 14:49 PFSH Acute 2 PFSH: Medical History (Updated 12/31/23 @ 16:29 by Emily Monreal MD) Abnormal CT lung screening 04/2023, repeat scan 07/2023 without same findings History of myocardial perfusion scan 04/2023 no EKG changes, low probability coronary ischemia History of echocardiogram 03/2023 EF 55-60% History of PFTs 06/2023 severe obstructive disease with no significant change with bronchodilators Osteoarthritis GERD (gastroesophageal reflux disease) Hypertension COPD with emphysema CVA (cerebral vascular accident) right sided weakness, mild residual Surgical History (Updated 12/31/23 @ 16:22 by Emily Monreal MD) History of coronary angioplasty ~2009 or earlier in [place], [place], had angioplasty of several vessels, no stents per him Social History (Updated 12/31/23 @ 18:42 by Emily Monreal MD) Smoking and tobacco/nicotine status: former use of tobacco/nicotine Second hand smoke exposure: Yes Alcohol intake: current Alcohol intake frequency: 3 or more drinks per day Alcohol type: beer Substance/Drug Use: former Additional social history: Quit smoking in mid/late 2022 Lives independently: Yes Household members: none Marital status: Single service: Yes Current occupational status: disabled Do you think of yourself as: Straight/Heterosexual Current gender identity: Male Physical Exam 2 Narrative: General exam is pleasant male audibly wheezy on 4 L NC of oxygen. HEENT: Atraumatic normocephalic. Oropharynx clear. Neck is supple. Cardiovascular regular rate and rhythm, Nomal. No murmur Lungs sounds noted to be coarse anterior bilaterally throughout and wheezes noted posterior bilaterally throughout. Abdomen soft, round. Non-tender. exams deferred Extremities no edema, no cyanosis or clubbing Skin no rashes Neuro no obvious focal deficits. Patient alert and oriented x 4. Data 12/31/23 11:36 12/31/23 11:36 Other Labs: Radiology Impressions Chest X-Ray 12/31/23 11:20 IMPRESSION: 1. Patchy bilateral infiltrates, left side greater than right. 2. Subtle right-sided hilar lymphadenopathy, most likely reactive. Laboratory Results WBC 14.30 10^3/uL (3.29-11.43) H 12/31/23 11:36 RBC 3.66 10^6/uL (3.85-5.65) L 12/31/23 11:36 Hgb 10.60 g/dL (11.27-16.99) L 12/31/23 11:36 Hct 32.3 % (37-53) L 12/31/23 11:36 MCV 88.3 fl (82-101) 12/31/23 11:36 MCH 29.0 pg (27-33) 12/31/23 11:36 MCHC 32.8 g/dL (30-55) 12/31/23 11:36 RDW 13.9 % (12.1-15.1) 12/31/23 11:36 Plt Count 348 10^3/cmm (157-399) 12/31/23 11:36 MPV 8.9 fL (7.4-10.4) 12/31/23 11:36 Neut % (Auto) 80.7 % 12/31/23 11:36 Lymph % (Auto) 6.0 % 12/31/23 11:36 Lares % (Auto) 12.1 % 12/31/23 11:36 Eos % (Auto) 0.3 % 12/31/23 11:36 Baso % (Auto) 0.1 % 12/31/23 11:36 Neut # (Auto) 11.54 10^3/uL (1.8-7.7) H 12/31/23 11:36 Lymph # (Auto) 0.9 10^3/uL (0.8-4.8) 12/31/23 11:36 Lares # (Auto) 1.7 10^3/uL (0.2-0.9) H 12/31/23 11:36 Eos # (Auto) 0.0 10^3/uL (0.0-0.8) 12/31/23 11:36 Baso # (Auto) 0.0 10^3/uL (0.0-0.1) 12/31/23 11:36 Nucleated RBC % (auto) 0 % 12/31/23 11:36 Nucleated RBCs # 0.0 /100WBC 12/31/23 11:36 Specimen Type Arterial 12/31/23 15:14 Sample Site Radial, right 12/31/23 15:14 ABG pH 7.41 (7.35-7.45) 12/31/23 15:14 ABG pCO2 36.6 mmHg (35-45) 12/31/23 15:14 ABG pO2 76.0 mmHg (80.0-100.0) L 12/31/23 15:14 ABG PO2/FiO2 Ratio 0 12/31/23 15:14 ABG HCO3 23.2 mmol/L (22-26) 12/31/23 15:14 ABG Base Excess -1.2 mmol/L (-2.0-2.0) 12/31/23 15:14 Maurice Test Pos 12/31/23 15:14 Hematocrit 31.5 % (42-52) L 12/31/23 15:14 O2 Delivery Device Nc 12/31/23 15:14 O2 Liters/Min 4.0 % 12/31/23 15:14 FiO2 36.0 % 12/31/23 15:14 Agate Setter ID Marlo 12/31/23 15:14 Sodium 123 mmol/L (136-145) L 12/31/23 11:36 Potassium 5.1 mmol/L (3.5-5.1) 12/31/23 11:36 Chloride 88 mmol/L (98-107) L 12/31/23 11:36 Carbon Dioxide 22 mmol/L (22-29) 12/31/23 11:36 Anion Gap 18.1 (5-19) 12/31/23 11:36 BUN 19 mg/dL (8-23) 12/31/23 11:36 Creatinine 1.0 mg/dL (0.7-1.2) 12/31/23 11:36 GFR Calculation 74.3 mL/min (90-130) L 12/31/23 11:36 Glucose 99 mg/dL (65-115) 12/31/23 11:36 Calculated Osmolality 258 mOsm/kg (285-295) L 12/31/23 11:36 Calcium 8.5 mg/dL (8.5-10.5) 12/31/23 11:36 Total Bilirubin 0.4 mg/dL (0.15-1.2) 12/31/23 11:36 AST 24 U/L (0-40) 12/31/23 11:36 ALT 30 U/L (0-41) 12/31/23 11:36 Alkaline Phosphatase 56 U/L (40-130) 12/31/23 11:36 Troponin T Baseline 21 ng/L (0-15) H 12/31/23 11:36 Troponin T 120 Minute 18.86 ng/L (0-15) H 12/31/23 13:32 Delta Troponin T -2.14 ABS# (0-10) L 12/31/23 13:32 Total Protein 5.7 g/dL (6.6-8.7) L 12/31/23 11:36 Albumin 3.5 g/dL (3.5-5.2) 12/31/23 11:36 Globulin 2.2 g/dL (1.3-4.6) 12/31/23 11:36 Urine Color Yellow (Yellow) 12/31/23 12:58 Urine Appearance Clear (CLEAR) 12/31/23 12:58 Urine pH 5 (5-7) 12/31/23 12:58 Ur Specific Orange 1.020 (1.005-1.030) 12/31/23 12:58 Urine Protein 1+ (Negative) H 12/31/23 12:58 Urine Glucose (UA) Norm (Normal) 12/31/23 12:58 Urine Ketones 1+ (Negative) H 12/31/23 12:58 Urine Blood Neg (Negative) 12/31/23 12:58 Urine Nitrate Negative (Negative) 12/31/23 12:58 Urine Bilirubin Neg (Negative) 12/31/23 12:58 Urine Urobilinogen Neg mg/dL (Negative) 12/31/23 12:58 Ur Leukocyte Esterase Negative (Negative) 12/31/23 12:58 Urine RBC 0-4 /hpf (0-2) H 12/31/23 12:58 Urine WBC 0-4 /hpf (0-5) H 12/31/23 12:58 Ur Squamous Epith Cells 0-4 /hpf (0-5) H 12/31/23 12:58 Amorphous Sediment 2+ /hpf 12/31/23 12:58 Urine Bacteria Trace /hpf (NONE) 12/31/23 12:58 Urine Mucus Trace /hpf 12/31/23 12:58 A&P Assessment and plan (1) Community acquired pneumonia: Present on admission, organism currently unknown. Status posttreatment with doxycycline in the outpatient setting. This is clinical impression initially though differential includes COPD, CHF Qualifiers: Laterality: left Lung location: lower lobe of lung Qualified Code(s): J18.9 - Pneumonia, unspecified organism (2) Acute exacerbation of chronic obstructive airways disease: Secondary to above. Known to have severe obstructive disease with limited response to bronchodilators. Recently completed a course of steroid therapy. (3) Nocturia: 5-6 times per night with some trace edema on examination. No known history of CHF but within differential contributing to respiratory presentation. (4) Hyponatremia: Present on admission. Patient known to drink beer daily and also clinically may be a little bit fluid overloaded. Had low-dose lung CT in July of last year without any abnormalities noted such as those seen in April of last year. No obvious lung masses appreciated today. Not on diuretic therapy. (5) Hypertension: Chronically on amlodipine and metoprolol Qualifiers: Hypertension type: primary hypertension Qualified Code(s): I10 - Essential (primary) hypertension (6) History of coronary angioplasty: Describes a history of angioplasty 15 years ago. Denies any stents. Procedures were done in [facility] prior to him moving to this area. No details are otherwise available. (7) GERD (gastroesophageal reflux disease): Chronically on PPI Qualifiers: Esophagitis presence: without esophagitis Qualified Code(s): K21.9 - Gastro-esophageal reflux disease without esophagitis (8) Osteoarthritis: Chronically on as needed Naprosyn. No history of GI bleeding or blood in the stools reported. Qualifiers: Osteoarthritis location: multiple joints Osteoarthritis type: primary Qualified Code(s): M15.9 - Polyosteoarthritis, unspecified (9) Alcohol use: Drinks beer daily. Has had some mild shakes when he has not had alcohol but no history of more significant symptoms. Reviewed with him risk of alcohol withdrawal and how we would monitor and manage it with a focus on keeping him safe should it become an issue this hospital stay Plan Inpatient admission Scheduled and as needed breathing treatments including inhaled steroids Systemic steroids Continue Rocephin and azithromycin started in the emergency room Continue oxygen, weaning as able to room air Check d dimer Blood cultures have been collected Flutter device Check proBNP and echocardiogram Consider a dose of IV Lasix Monitor and address/replace electrolytes as needed Serial cardiac enzymes and EKGs Continue home metoprolol, though will adjust to 50 mg twice a day of metoprolol tartrate Continue home lisinopril Holding home amlodipine presently Check hemoglobin A1c and lipid panel for risk stratification [facility] protocol monitoring and treatment Monitor blood sugars for hypoglycemia Continue home PPI Will continue as needed Naprosyn presently though may need to adjust depending on results of cardiac evaluation VTE prophylaxis: Lovenox GI Prophylaxis: PPI Antibiotics: Rocephin and azithromycin initiated on 12/30 Pending studies: Blood cultures, echocardiogram, a.m. lipid panel and A1c, d dimer Telemetry: Ordered secondary to respiratory symptoms and reported cardiac history Dumont: not currently indicated, did require straight catheter urinalysis in the ER Line(s): peripheral IVs Disposition plan: Home with outpatient follow up to primary care provider, pulmonology plus or minus possibility of cardiology depending on clinical course Code Status: Full Code Supportive care otherwise Findings, concerns and plans were discussed with patient and he was given an opportunity to ask questions Attestations 2 Medical Necessity Statement*: Anticipated stay greater than two midnights in this gentleman presenting with recurrent respiratory difficulties within a couple of days of completing attempts at outpatient management with oral antibiotics and steroids. He is currently requiring up to 4 L of oxygen by nasal cannula. Is not normally on oxygen. Other Attestations: A nurse practitioner student assisted me with documenting care for this patient encounter. I saw the patient, performed physical exam and reviewed and verified all information as shown. I agree with this documentation, with exceptions or addenda as follows: [] None [x] See below Upon specific questioning, patient reported history of angioplasty of several vessels in [place], [place] ~15 years ago. Reports 5-6 times night nocturia, exertional dyspnea that is getting worse over time. Currently requiring up to 4L BNC to maintain saturations. On physical exam does have mild clubbing noted. Recently completed attempt at outpatient management with steroids and doxycycline. Saw Dr Sylvester and Dr Beltran last year. Last Echo 04/20 with EF 55- 60%. Last stress test 04/2023 without ischemic changes. PFTs with severe obstructive disease without significant response to bronchodilators. On exam, prolonged expiratory phase, fine crackles bilaterally, left more than right while laying on left side. Wheezing noted bilaterally. Trace edema, mild stasis changes noted. No calf tenderness or palpable cords. Alert and oriented x 3. Diagnoses Community acquired pneumonia of left lower lobe of lung J18.9 Laterality: left Lung location: lower lobe of lung Acute exacerbation of chronic obstructive airways disease J44.1 Nocturia R35.1 Hyponatremia E87.1 Primary hypertension I10 Hypertension type: primary hypertension History of coronary angioplasty Z98.61 Gastroesophageal reflux disease without esophagitis K21.9 Esophagitis presence: without esophagitis 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
[2023-12-31 15:27] LABS: ABG PCO2 36.6 mmHg (35-45); ABG PH Result 7.41 (7.35-7.45); Arterial Blood Gas Hematocrit 31.5 % (42-52); Base Excess ABG -1.2 mmol/L (-2.0-2.0); Blood Gas Allen Test Pos; Blood Gas Operator Identificat MONRO; Blood Gas Sample Site Radial, right; Blood Gas Sample Type Arterial; HCO3 ABG 23.2 mmol/L (22-26); Oxygen Device NC; PO2 FiO2 Ratio Arterial Blood 0
--- NOTE | 2023-12-31 16:15 | USCV_ITS ---
Moisés Mann Age: 68 Gender: M : 1955 Exam Date: 12/31/2023 21:15 Ordering Phys: Emily Monreal MD Technologist: PAPO Exam Location: [facility] Indication: hx COPD, respiratory distress, RODRIGUEZ. BP: 94 / 52 HR: 0 Rhythm: Sinus Technical Quality: Adequate MEASUREMENTS (Male / Female) Normal Values 2D ECHO LV Diastolic Diameter PLAX 4.0 cm 4.2 - 5.9 / 3.9 - 5.3 cm IVS Diastolic Thickness 1.2 cm 0.6 - 1.0 / 0.6 - 0.9 cm IVS Systolic Thickness 1.6 cm LVPW Diastolic Thickness 1.2 cm 0.6 - 1.0 / 0.6 - 0.9 cm LVPW Systolic Thickness 1.7 cm LVOT Diameter 1.4 cm LV Ejection Fraction 2D Teich 71.0 % LV Ejection Fraction MOD 2C 52.7 % LV Ejection Fraction 2C AL 0.0 % LA Diameter 3.7 cm Aorta at Sinotubular Diameter 2.6 cm IVC Diameter 1.0 cm M-MODE LA Ao Ratio MM 1.5 AV Cusp Separation MM 1.3 cm DOPPLER AV Peak Velocity 149.0 cm/s LVOT Peak Velocity 132.0 cm/s AV Area Cont Eq vti 1.4 cm squared AV Area Cont Eq pk 1.3 cm squared MV Peak Velocity 122.0 cm/s MV Area PHT 3.5 cm squared Mitral E to A Ratio 0.9 TV Peak E Velocity 51.0 cm/s PV Peak Velocity 101.0 cm/s FINDINGS Left Ventricle Normal left ventricular size and systolic function, EF 71%.mild left ventricular hypertrophy. No regional wall motion abnormalities. Grade II/IV diastolic dysfunction, moderately elevated filling pressures. Right Ventricle The right ventricle is normal in size and function. Right Atrium The right atrium is normal in size. Left Atrium The left atrium is normal in size. Mitral Valve Trace mitral valve regurgitation. Aortic Valve Thickened aortic valve. Tricuspid Valve No gross abnormalities noted Pulmonic Valve Pulmonic valve not well visualized. Pericardium Normal pericardium without effusion. Aorta Normal ascending aorta dimension. IVC The inferior vena cava appears normal. CONCLUSIONS Normal left ventricular size and systolic function, EF 71%.mild left ventricular hypertrophy. No regional wall motion abnormalities. Grade II/IV diastolic dysfunction, moderately elevated filling pressures. Thickened aortic valve. Trace mitral valve regurgitation. There is no pericardial effusion. There are no intracardiac masses. Compared to the study from a 10/05/2020, there may be a significant change Dr Maria Esther Smith MD [facility] (Electronically Signed) Final Date: 01 January 2024 13:15 S
--- NOTE | 2023-12-31 17:16 | ECG_ITS ---
[facility] Test Date: 2023-12-31 Pat Name: Moisés Mann Department: Room: Gender: Male Pourer Bull Ladle: : 1955 Requested By: Jimenez Hollis Order Number: [id number] Mo MD: Jeff English M.D. Measurements Intervals [place] Rate: 68 P: 73 [place]: 147 QRS: 70 QRSD: 102 T: 65 QT: 412 QTc: 438 Interpretive Statements SINUS RHYTHM Compared to ECG 12/31/2023 14:37:18 No significant changes Electronically Signed On 12-31-2023 23:21:04 [employer] RESEARCH ENGINEER by Jeff English M.D. [email or web address]
[2023-12-31 17:24] LABS: NT Pro B Type Natriuretic Pept 1278 pg/mL (0-125); Procalcitonin 0.07 ng/mL (0-0.5)
[2023-12-31 17:55] LABS: Troponin 5 6HR 20.77 ng/L (0-15)
[2023-12-31 17:56] LABS: Troponin 5 6HR Delta -0.23 ng/L (0-12)
[2023-12-31] MEDS: FUROsemide 10 mg/mL SDV 2mL 20 MG IVP (19:57)
[2023-12-31] MEDS: fluticasone nasal spray 16gm Btl 1 SPRAY INTRANASAL (19:58)
[2023-12-31] MEDS: enoxaparin 40 mg/0.4 mL Syringe SUBCUT (19:58)
[2023-12-31] MEDS: metoprolol tartrate 25 mg Tablet 50 MG PO (20:53)
[2023-12-31] MEDS: acetaminophen 325 mg Tablet 650 MG PO (20:53)
[2023-12-31] MEDS: budesonide 0.5 mg/2 mL Neb INHALATION (21:19)
[2024-01-01] VITALS (15 sets, daily range): BP systolic 96–140; BP diastolic 55–77; PULSE 78–98; RESP 16–22; TEMP 36.4–36.8; O2SAT 91–98
[2024-01-01] MEDS: ipratropium-albuterol 3 mL Neb INHALATION ×4 (02:23→20:42)
[2024-01-01 05:21] LABS: Hematocrit 29.6 % (37-53); Lymphocytes # 0.5 10^3/uL (0.8-4.8); Lymphocytes % 6.4 %; Mean Corpuscular HGB Conc 33.1 g/dL (30-55); Mean Corpuscular Hemoglobin 29.4 pg (27-33); Mean Corpuscular Volume 88.9 fl (82-101); Monocytes # 0.4 10^3/uL (0.2-0.9); Monocytes % 4.8 %; Neutrophils % 87.8 %; Nucleated Red Blood Cells % 0 %; Platelet Count 285 10^3/cmm (157-399); Red Blood Count 3.33 10^6/uL (3.85-5.65); White Blood Count 8.31 10^3/uL (3.29-11.43)
[2024-01-01 05:49] LABS: D Dimer 0.83 ug/mLFEU (0-0.59)
[2024-01-01 06:09] LABS: Anion Gap 18.9 (5-19); Blood Urea Nitrogen 23 mg/dL (8-23); Calcium 8.5 mg/dL (8.5-10.5); Carbon Dioxide 24 mmol/L (22-29); Chloride 94 mmol/L (98-107); Creatinine Clr Calc Pharmacy 72.6928; Glomerular Filtration Rate 74.3 mL/min (90-130); Glucose 107 mg/dL (65-115); Magnesium 1.8 mg/dL (1.7-2.3); Osmolality Calculated 278 mOsm/kg (285-295); Phosphorus 3.6 mg/dL (2.5-4.5); Potassium 4.9 mmol/L (3.5-5.1); Sodium 132 mmol/L (136-145)
[2024-01-01 06:10] LABS: Chol HDL Ratio 1.73 mg/dL (1.0-5.00); Cholesterol 161 mg/dL (0-200); HDL Cholesterol 93 mg/dL (60-100); LDL Cholesterol Calculated 46 mg/dL (50-129); LDL HDL Ratio 0.49 RATIO (0.00-3.22); Triglycerides 111 mg/dL (0-150)
[2024-01-01 06:20] LABS: Estmated Average Glucose 108; Hemoglobin A1C 5.4 % (4.0-6.0)
[2024-01-01 06:26] LABS: INR 0.99 (0.8-1.2)
[2024-01-01] MEDS: budesonide 0.5 mg/2 mL Neb INHALATION ×2 (07:55→20:42)
[2024-01-01] MEDS: predniSONE 20 mg Tablet 40 MG PO (08:37)
[2024-01-01] MEDS: multivitamin therapeutic Tablet 1 TAB PO (08:37)
[2024-01-01] MEDS: azithromycin 250 mg Tablet 500 MG PO (08:37)
[2024-01-01] MEDS: thiamine 100 mg Tablet PO (08:38)
[2024-01-01] MEDS: pantoprazole DR 40 mg Tablet PO (08:38)
[2024-01-01] MEDS: folic acid 1 mg Tablet PO (08:38)
[2024-01-01] MEDS: docusate sodium 100 mg Capsule PO ×2 (08:38→18:16)
[2024-01-01] MEDS: fluticasone nasal spray 16gm Btl 1 SPRAY INTRANASAL ×2 (08:39→18:18)
[2024-01-01] MEDS: lisinopril 20 mg Tablet 40 MG PO (08:46)
[2024-01-01] MEDS: metoprolol tartrate 25 mg Tablet 50 MG PO ×2 (08:46→20:29)
--- NOTE | 2024-01-01 09:49 | PC.CHAP ---
Pastoral Care Encounter/Spiritual Assessment Type of Contact [] Declined meter reading clerk visit [] Patient/Family/Request visit [] Outpatient visit [] Follow-up visit [] Physician referral [] Code/Alert [] Routine visit [] Staff referral [] Actively dying [] Patient sleeping [] Family support [] [] Out of room [] Palliative care [] [x] Receiving care in room [] Pre-surgical visit [] Trauma [] Long length of stay [] ICU visit [] Other: Relational/Emotional Strength [] Patient feels connected with others/family/visitors/staff [] Distress [] Loneliness/isolation [] Abandonment Spirituality of Patient [] Person of Lore [] Attends Quaker of their Lore [] Believes in Prayer [] Reads Bible or Anglican materials [] There are Spiritual issues to be addressed Sifter Operator Interventions [] Prayer [] Active listening [] Non-anxious presence [] Spiritual/emotional support [] Crisis/trauma care [] Spiritual counseling [] Bereavement support [] Provided bereavement packet [] Provided Bible/devotional materials [] Provided toy/stuffed animal, coloring book to patient or family member [] Provided Communion [] Anointing/[place] [] Salvation [] Completed spiritual assessment [] Other: Impact on Illness or Injury [] Angry [] Fearful [] Anxious [] Often cries [] Exhaustion [] Unable to work [] Unable to attend yarsani [] Unable to walk/stand [] Unable to read [] Unable to drive [] Unable to eat/drink [] Unable to sleep [] Unable to be with family [] Patient intubated [] Other: Summary Time spent with patient
[2024-01-01 11:28] LABS: Glucose Point of Care 96 mg/dL (70-110)
[2024-01-01] MEDS: cefTRIAXone 1,000 MG in sodium chloride 0.9% (plus) 50 ML 100 MG IV (12:27)
[2024-01-01] MEDS: methylPREDNISolone sod succ 40 mg/mL INJ IVP ×2 (12:27→18:16)
[2024-01-01] MEDS: FUROsemide 10 mg/mL SDV 2mL 20 MG IVP (12:27)
--- NOTE | 2024-01-01 16:18 | P.PN_ITS ---
Subjective 2 Subjective: Patient was seen this morning,have persistent wheezing, have slight lower extremity edema, no chest pain, no palpitations no cardiovascular history, does have a nonproductive cough does report fatigue, malaise Vitals/I&O/Wt Last Vital Signs Temp 97.7 F 01/01/24 12:00 Pulse 82 01/01/24 14:00 Resp 18 01/01/24 13:30 BP 96/62 01/01/24 12:00 Pulse Ox 96 01/01/24 13:30 O2 Del Method Nasal Cannula 01/01/24 13:30 O2 Flow Rate 2 01/01/24 13:30 01/01/24 01/01/24 01/01/24 06:59 14:59 22:59 Intake Total 120 / 1540 770 / 770 Output Total 900 / 900 Balance -780 / 640 770 / 770 Weight last 48 hrs Weight 82.582 kg Weight 73.028 kg Weight 72.575 kg Physical Exam 2 Const: COMMON NORMALS: no acute distress and patient oriented x3 Neck/C-Spine: COMMON NORMALS: no JVD Resp: COMMON NORMALS: normal respiratory effort, No retractions and No use of accessory muscles AUSCULTATION: crackles and wheezes Cardio: COMMON NORMALS: no JVD, regular rate, regular rhythm, S1 normal heart sound present and S2 normal heart sound present RATE: regular rate RHYTHM: regular rhythm HEART SOUNDS: S1 normal heart sound present and S2 normal heart sound present GI: COMMON NORMALS: Normal to inspection, nondistended, normoactive bowel sounds present and non-tender Extremity: COMMON NORMALS: no pedal edema Neuro: COMMON NORMALS: patient oriented x3 Psych: COMMON NORMALS: mental status grossly normal Data 01/01/24 05:09 01/01/24 05:09 A&P Assessment and plan (1) Community acquired pneumonia: Qualifiers: Laterality: left Lung location: lower lobe of lung Qualified Code(s): J18.9 - Pneumonia, unspecified organism (2) Acute exacerbation of chronic obstructive airways disease: . (3) Nocturia: 5-6 times per night with some trace edema on examination. No known history of CHF but within differential contributing to respiratory presentation. (4) Hyponatremia: (5) Hypertension: Chronically on amlodipine and metoprolol Qualifiers: Hypertension type: primary hypertension Qualified Code(s): I10 - Essential (primary) hypertension (6) History of coronary angioplasty: Describes a history of angioplasty 15 years ago. Denies any stents. Procedures were done in [facility] prior to him moving to this area. No details are otherwise available. (7) GERD (gastroesophageal reflux disease): Chronically on PPI Qualifiers: Esophagitis presence: without esophagitis Qualified Code(s): K21.9 - Gastro-esophageal reflux disease without esophagitis (8) Osteoarthritis: Chronically on as needed Naprosyn. No history of GI bleeding or blood in the stools reported. Qualifiers: Osteoarthritis location: multiple joints Osteoarthritis type: primary Qualified Code(s): M15.9 - Polyosteoarthritis, unspecified (9) Alcohol use: Drinks beer daily. Has had some mild shakes when he has not had alcohol but no history of more significant symptoms. Reviewed with him risk of alcohol withdrawal and how we would monitor and manage it with a focus on keeping him safe should it become an issue this hospital stay Plan Acute hypoxic respiratory failure ? Secondary to COPD exacerbation ? Secondary pneumonia ?secondary to diastolic CHF ? Plan ? Follow echocardiogram ? 1 dose Lasix ? Increase Solu-Medrol to 40 mg IV every 8 hours ? Continue Rocephin ? Continue azithromycin -Continue DuoNeb -Encouraged to get up out of bed, VTE prophylaxis: Lovenox GI Prophylaxis: PPI Antibiotics: Rocephin and azithromycin initiated on 12/30 Pending studies: Blood cultures, echocardiogram, a.m. lipid panel and A1c, d dimer Telemetry: Ordered secondary to respiratory symptoms and reported cardiac history Dumont: not currently indicated, did require straight catheter urinalysis in the ER Line(s): peripheral IVs Disposition plan: Home with outpatient follow up to primary care provider, pulmonology plus or minus possibility of cardiology depending on clinical course Code Status: Full Code Supportive care otherwise Findings, concerns and plans were discussed with patient and he was given an opportunity to ask questions Attestations 2 Medical Necessity Statement*: Patient requires hospitalization for acute respiratory failure secondary COPD, pneumonia, CHF, monitoring for alcohol withdrawal Diagnoses Community acquired pneumonia of left lower lobe of lung J18.9 Laterality: left Lung location: lower lobe of lung Acute exacerbation of chronic obstructive airways disease J44.1 Nocturia R35.1 Hyponatremia E87.1 Primary hypertension I10 Hypertension type: primary hypertension History of coronary angioplasty Z98.61 Gastroesophageal reflux disease without esophagitis K21.9 Esophagitis presence: without esophagitis 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
[2024-01-01 16:52] LABS: Glucose Point of Care 137 mg/dL (70-110)
[2024-01-01] MEDS: enoxaparin 40 mg/0.4 mL Syringe SUBCUT (18:16)
[2024-01-01] MEDS: acetaminophen 325 mg Tablet 650 MG PO (20:29)
[2024-01-02] VITALS (12 sets, daily range): BP systolic 106–154; BP diastolic 56–80; PULSE 68–86; RESP 17–20; TEMP 36.4–36.7; O2SAT 92–99
[2024-01-02] MEDS: ipratropium-albuterol 3 mL Neb INHALATION ×4 (02:50→20:55)
[2024-01-02] MEDS: methylPREDNISolone sod succ 40 mg/mL INJ IVP ×3 (03:19→18:01)
[2024-01-02 05:16] LABS: Basophils % 0.1 %; Lymphocytes # 0.6 10^3/uL (0.8-4.8); Mean Corpuscular HGB Conc 30.7 g/dL (30-55); Mean Corpuscular Hemoglobin 28.5 pg (27-33); Mean Corpuscular Volume 92.9 fl (82-101); Mean Platelet Volume 9.4 fL (7.4-10.4); Monocytes # 0.6 10^3/uL (0.2-0.9); Monocytes % 6.4 %; Neutrophils # 8.67 10^3/uL (1.8-7.7); Neutrophils % 86.7 %; Nucleated Red Blood Cells % 0 %; Platelet Count 287 10^3/cmm (157-399); Red Blood Count 3.23 10^6/uL (3.85-5.65); Red Cell Distribution Width 14.1 % (12.1-15.1)
[2024-01-02 05:56] LABS: Alanine Aminotransferase 42 U/L (0-41); Albumin Level 3.3 g/dL (3.5-5.2); Alkaline Phosphatase 52 U/L (40-130); Aspartate Amino Transferase 42 U/L (0-40); Blood Urea Nitrogen 28 mg/dL (8-23); Calcium 8.7 mg/dL (8.5-10.5); Carbon Dioxide 28 mmol/L (22-29); Chloride 97 mmol/L (98-107); Creatinine Clr Calc Pharmacy 79.3662; Globulin 2.6 g/dL (1.3-4.6); Glomerular Filtration Rate 83.9 mL/min (90-130); Glucose 118 mg/dL (65-115); Magnesium 1.9 mg/dL (1.7-2.3); NT Pro B Type Natriuretic Pept 1269 pg/mL (0-125); Osmolality Calculated 287 mOsm/kg (285-295); Phosphorus 3.2 mg/dL (2.5-4.5); Sodium 135 mmol/L (136-145); Total Bilirubin 0.2 mg/dL (0.15-1.2); Total Protein 5.9 g/dL (6.6-8.7)
[2024-01-02] MEDS: budesonide 0.5 mg/2 mL Neb INHALATION ×2 (08:19→20:55)
[2024-01-02] MEDS: docusate sodium 100 mg Capsule PO ×2 (09:19→17:18)
[2024-01-02] MEDS: azithromycin 250 mg Tablet 500 MG PO (09:19)
[2024-01-02] MEDS: folic acid 1 mg Tablet PO (09:20)
[2024-01-02] MEDS: lisinopril 20 mg Tablet 40 MG PO (09:20)
[2024-01-02] MEDS: fluticasone nasal spray 16gm Btl 1 SPRAY INTRANASAL ×2 (09:20→17:17)
[2024-01-02] MEDS: thiamine 100 mg Tablet PO (09:21)
[2024-01-02] MEDS: multivitamin therapeutic Tablet 1 TAB PO (09:21)
[2024-01-02] MEDS: pantoprazole DR 40 mg Tablet PO (09:21)
[2024-01-02] MEDS: metoprolol tartrate 25 mg Tablet 50 MG PO ×2 (09:23→20:23)
--- NOTE | 2024-01-02 10:59 | CT_ITS ---
WS: [id number] CTA OF THE CHEST WITH PULMONARY EMBOLISM PROTOCOL TECHNIQUE: High-resolution contrast enhanced CTA of the chest with coronal and sagittal reformatted i mages with pulmonary embolism protocol. MIP images are also reviewed. CLINICAL INFORMATION: sob, wheezing, elevated dimer, troponin, chest pain COMPARISON: None. DLP: 623.[address] scans at [facility] [place] use at least one of these dose optimization techniques: automated e xposure control; mA and/or kV adjustment per patient size (includes targeted exams where dose is matc hed to clinical indication); or iterative reconstruction. FINDINGS: Moderate chronic emphysematous changes. Hazy groundglass LEFT perihilar infiltrates. Slight bibasilar atelectasis. Trace LEFT pleural fluid. Proximal main pulmonary arteries are normal. Normal segmental and subsegmental pulmonary arteries. No evidence of pulmonary embolus. Moderate aortic atheromatous disease. Slightly prominent ascending thoracic aorta measuring 3.5 cm. A berrant RIGHT subclavian artery. No mediastinal or hilar lymphadenopathy. Small esophageal hiatal her sapphire. Adrenal glands are normal. IMPRESSION: 1. No evidence of pulmonary embolus. 2. Aberrant RIGHT subclavian artery. 3. Hazy groundglass LEFT perihilar infiltrates likely infectious or inflammatory. 4. Trace LEFT pleural fluid.
--- NOTE | 2024-01-02 12:19 | P.PN_ITS ---
Subjective 2 Subjective: Patient was seen this morning, he continues to complain of wheezing, does report chest discomfort, stabbing sensation in his chest, happening intermittently, nonproductive cough, his edema is improving, no fevers or chills overnight Vitals/I&O/Wt Last Vital Signs Temp 98.0 F 01/02/24 08:00 Pulse 79 01/02/24 08:00 Resp 20 H 01/02/24 08:00 BP 106/63 01/02/24 08:00 Pulse Ox 92 01/02/24 08:00 O2 Del Method Nasal Cannula 01/02/24 08:00 O2 Flow Rate 1 01/02/24 08:00 01/01/24 01/02/24 01/02/24 22:59 06:59 14:59 Intake Total 600 / 1370 480 / 1850 480 / 480 Output Total 300 / 300 Balance 600 / 1370 180 / 1550 480 / 480 Weight last 48 hrs Weight 79.424 kg Weight 82.582 kg Weight 73.028 kg Physical Exam 2 Const: COMMON NORMALS: no acute distress and patient oriented x3 Resp: COMMON NORMALS: normal respiratory effort, No retractions and No use of accessory muscles AUSCULTATION: wheezes Cardio: COMMON NORMALS: regular rate, regular rhythm, S1 normal heart sound present and S2 normal heart sound present RATE: regular rate RHYTHM: r egular rhythm HEART SOUNDS: S1 normal heart sound present and S2 normal heart sound present GI: COMMON NORMALS: Normal to inspection, nondistended, normoactive bowel sounds present and non-tender Extremity: COMMON NORMALS: no pedal edema Neuro: COMMON NORMALS: patient oriented x3 Psych: COMMON NORMALS: mental status grossly normal Data 01/02/24 04:31 01/02/24 04:31 A&P Assessment and plan (1) Community acquired pneumonia: Qualifiers: Laterality: left Lung location: lower lobe of lung Qualified Code(s): J18.9 - Pneumonia, unspecified organism (2) Acute exacerbation of chronic obstructive airways disease: . (3) Nocturia: 5-6 times per night with some trace edema on examination. No known history of CHF but within differential contributing to respiratory presentation. (4) Hyponatremia: (5) Hypertension: Chronically on amlodipine and metoprolol Qualifiers: Hypertension type: primary hypertension Qualified Code(s): I10 - Essential (primary) hypertension (6) History of coronary angioplasty: Describes a history of angioplasty 15 years ago. Denies any stents. Procedures were done in [facility] prior to him moving to this area. No details are otherwise available. (7) GERD (gastroesophageal reflux disease): Chronically on PPI Qualifiers: Esophagitis presence: without esophagitis Qualified Code(s): K21.9 - Gastro-esophageal reflux disease without esophagitis (8) Osteoarthritis: Chronically on as needed Naprosyn. No history of GI bleeding or blood in the stools reported. Qualifiers: Osteoarthritis location: multiple joints Osteoarthritis type: primary Qualified Code(s): M15.9 - Polyosteoarthritis, unspecified (9) Alcohol use: Drinks beer daily. Has had some mild shakes when he has not had alcohol but no history of more significant symptoms. Reviewed with him risk of alcohol withdrawal and how we would monitor and manage it with a focus on keeping him safe should it become an issue this hospital stay Plan Acute hypoxic respiratory failure ? Secondary to COPD exacerbation ? Secondary pneumonia ?secondary to diastolic CHF CONCLUSIONS Normal left ventricular size and systolic function, EF 71%.mild left ventricular hypertrophy. No regional wall motion abnormalities. Grade II/IV diastolic dysfunction, moderately elevated filling pressures. Thickened aortic valve. Trace mitral valve regurgitation. There is no pericardial effusion. There are no intracardiac masses. Compared to the study from a 10/05/2020, there may be a significant change ? Plan ? 1 dose Lasix ? Increase Solu-Medrol to 40 mg IV every 8 hours ? Continue Rocephin ? Continue azithromycin -Continue DuoNeb -Encouraged to get up out of bed, -Given his complaints of chest discomfort elevated troponins, D-dimer, will order CT angiogram of the chest VTE prophylaxis: Lovenox GI Prophylaxis: PPI Antibiotics: Rocephin and azithromycin initiated on 12/30 Pending studies: Blood cultures, echocardiogram, a.m. lipid panel and A1c, d dimer Telemetry: Ordered secondary to respiratory symptoms and reported cardiac history Dumont: not currently indicated, did require straight catheter urinalysis in the ER Line(s): peripheral IVs Disposition plan: Home with outpatient follow up to primary care provider, pulmonology plus or minus possibility of cardiology depending on clinical course Code Status: Full Code Supportive care otherwise Findings, concerns and plans were discussed with patient and he was given an opportunity to ask questions Plan for today CT angiogram of the chest, continue antibiotics, continue Solu- Medrol up out of bed, PT OT continue Attestations 2 Medical Necessity Statement*: Patient requires hospitalization, COPD exacerbation, requiring steroids IV steroids, pneumonia requiring IV antibiotics, no chest discomfort or current PT OT given elevated troponins, D-dimer, persistent shortness of breath, tachycardia requiring inpatient monitoring, CHF, requiring IV diuresis Diagnoses Community acquired pneumonia of left lower lobe of lung J18.9 Laterality: left Lung location: lower lobe of lung Acute exacerbation of chronic obstructive airways disease J44.1 Nocturia R35.1 Hyponatremia E87.1 Primary hypertension I10 Hypertension type: primary hypertension History of coronary angioplasty Z98.61 Gastroesophageal reflux disease without esophagitis K21.9 Esophagitis presence: without esophagitis 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
[2024-01-02] MEDS: iohexol 350 mg/mL 500 mL Btl (per mL) IV (12:34)
[2024-01-02] MEDS: cefTRIAXone 1,000 MG in sodium chloride 0.9% (plus) 50 ML 100 MG IV (13:10)
[2024-01-02 16:42] LABS: Glucose Point of Care 196 mg/dL (70-110)
[2024-01-02] MEDS: insulin lispro 100 unit/1 mL SUBCUT (17:19)
[2024-01-02] MEDS: enoxaparin 40 mg/0.4 mL Syringe SUBCUT (18:09)
[2024-01-02] MEDS: acetaminophen 325 mg Tablet 650 MG PO (18:27)
[2024-01-02 20:56] LABS: Glucose Point of Care 118 mg/dL (70-110)
[2024-01-03] VITALS (11 sets, daily range): BP systolic 139–175; BP diastolic 67–85; PULSE 69–98; RESP 16–25; TEMP 36.4–36.6; O2SAT 91–97; BMI 28.1
[2024-01-03] MEDS: ipratropium-albuterol 3 mL Neb INHALATION ×4 (01:35→21:00)
[2024-01-03] MEDS: methylPREDNISolone sod succ 40 mg/mL INJ IVP ×3 (02:22→18:06)
[2024-01-03 05:24] LABS: Basophils % 0.1 %; Hematocrit 30.4 % (37-53); Lymphocytes # 0.5 10^3/uL (0.8-4.8); Lymphocytes % 5.4 %; Mean Corpuscular HGB Conc 30.6 g/dL (30-55); Mean Corpuscular Hemoglobin 28.5 pg (27-33); Mean Corpuscular Volume 93.3 fl (82-101); Mean Platelet Volume 11.3 fL (7.4-10.4); Monocytes # 0.6 10^3/uL (0.2-0.9); Monocytes % 5.8 %; Neutrophils # 8.85 10^3/uL (1.8-7.7); Neutrophils % 87.8 %; Nucleated Red Blood Cells % 0 %; Platelet Count 235 10^3/cmm (157-399); Red Blood Count 3.26 10^6/uL (3.85-5.65); Red Cell Distribution Width 14.3 % (12.1-15.1); White Blood Count 10.07 10^3/uL (3.29-11.43)
[2024-01-03 06:00] LABS: Slide Review Slide Review Perform
[2024-01-03 06:01] LABS: NT Pro B Type Natriuretic Pept 1468 pg/mL (0-125)
[2024-01-03 06:06] LABS: Alanine Aminotransferase 91 U/L (0-41); Albumin Level 3.2 g/dL (3.5-5.2); Alkaline Phosphatase 52 U/L (40-130); Anion Gap 15.5 (5-19); Aspartate Amino Transferase 67 U/L (0-40); Blood Urea Nitrogen 25 mg/dL (8-23); Calcium 8.7 mg/dL (8.5-10.5); Carbon Dioxide 26 mmol/L (22-29); Chloride 96 mmol/L (98-107); Creatinine Clr Calc Pharmacy 79.3662; Globulin 2.5 g/dL (1.3-4.6); Glomerular Filtration Rate 83.9 mL/min (90-130); Glucose 108 mg/dL (65-115); Magnesium 1.9 mg/dL (1.7-2.3); Osmolality Calculated 281 mOsm/kg (285-295); Phosphorus 3.3 mg/dL (2.5-4.5); Potassium 4.5 mmol/L (3.5-5.1); Sodium 133 mmol/L (136-145); Total Bilirubin 0.2 mg/dL (0.15-1.2); Total Protein 5.7 g/dL (6.6-8.7)
[2024-01-03 06:41] LABS: Glucose Point of Care 123 mg/dL (70-110)
[2024-01-03] MEDS: budesonide 0.5 mg/2 mL Neb INHALATION ×2 (08:13→21:00)
[2024-01-03] MEDS: amlodipine 10 mg Tablet PO (10:26)
[2024-01-03] MEDS: pantoprazole DR 40 mg Tablet PO (10:26)
[2024-01-03] MEDS: azithromycin 250 mg Tablet 500 MG PO (10:26)
[2024-01-03] MEDS: folic acid 1 mg Tablet PO (10:26)
[2024-01-03] MEDS: thiamine 100 mg Tablet PO (10:26)
[2024-01-03] MEDS: docusate sodium 100 mg Capsule PO ×2 (10:26→17:34)
[2024-01-03] MEDS: multivitamin therapeutic Tablet 1 TAB PO (10:26)
[2024-01-03] MEDS: lisinopril 20 mg Tablet 40 MG PO (10:27)
[2024-01-03] MEDS: fluticasone nasal spray 16gm Btl 1 SPRAY INTRANASAL ×2 (10:27→17:33)
[2024-01-03] MEDS: metoprolol tartrate 25 mg Tablet 50 MG PO ×2 (10:42→21:19)
[2024-01-03 10:55] LABS: Glucose Point of Care 117 mg/dL (70-110)
[2024-01-03] MEDS: cefTRIAXone 1,000 MG in sodium chloride 0.9% (plus) 50 ML 100 MG IV (12:28)
--- NOTE | 2024-01-03 13:05 | P.PN_ITS ---
Subjective 2 Subjective: Patient was seen this morning, he tells me that his wheezing is improving his shortness of breath is improving but persist to some degree but he is able to ambulate, does report lower extremity edema, no chest pain, no palpitations, no fevers Vitals/I&O/Wt Last Vital Signs Temp 97.6 F 01/03/24 11:29 Pulse 82 01/03/24 11:29 Resp 17 01/03/24 11:29 BP 175/85 01/03/24 11:29 Pulse Ox 94 01/03/24 11:29 O2 Del Method Nasal Cannula 01/03/24 08:00 O2 Flow Rate 2 01/03/24 08:00 01/02/24 01/03/24 01/03/24 22:59 06:59 14:59 Intake Total 480 / 1490 360 / 360 Balance 480 / 1490 360 / 360 Weight last 48 hrs Weight 81.601 kg Weight 79.424 kg Physical Exam 2 Const: COMMON NORMALS: no acute distress and patient oriented x3 Resp: COMMON NORMALS: normal respiratory effort, No retractions and No use of accessory muscles AUSCULTATION: wheezes Cardio: COMMON NORMALS: regular rate, regular rhythm, S1 normal heart sound present and S2 normal heart sound present RATE: regular rate RHYTHM: r egular rhythm HEART SOUNDS: S1 normal heart sound present and S2 normal heart sound present GI: COMMON NORMALS: Normal to inspection, nondistended, normoactive bowel sounds present and non-tender Extremity: NARRATIVE EXTREMITY EXAM: 1+ pitting edema Neuro: COMMON NORMALS: patient oriented x3 Psych: COMMON NORMALS: mental status grossly normal Data 01/03/24 04:38 01/03/24 04:38 A&P Assessment and plan (1) Community acquired pneumonia: Qualifiers: Laterality: left Lung location: lower lobe of lung Qualified Code(s): J18.9 - Pneumonia, unspecified organism (2) Acute exacerbation of chronic obstructive airways disease: . (3) Nocturia: 5-6 times per night with some trace edema on examination. No known history of CHF but within differential contributing to respiratory presentation. (4) Hyponatremia: (5) Hypertension: Chronically on amlodipine and metoprolol Qualifiers: Hypertension type: primary hypertension Qualified Code(s): I10 - Essential (primary) hypertension (6) History of coronary angioplasty: Describes a history of angioplasty 15 years ago. Denies any stents. Procedures were done in [facility] prior to him moving to this area. No details are otherwise available. (7) GERD (gastroesophageal reflux disease): Chronically on PPI Qualifiers: Esophagitis presence: without esophagitis Qualified Code(s): K21.9 - Gastro-esophageal reflux disease without esophagitis (8) Osteoarthritis: Chronically on as needed Naprosyn. No history of GI bleeding or blood in the stools reported. Qualifiers: Osteoarthritis location: multiple joints Osteoarthritis type: primary Qualified Code(s): M15.9 - Polyosteoarthritis, unspecified (9) Alcohol use: Drinks beer daily. Has had some mild shakes when he has not had alcohol but no history of more significant symptoms. Reviewed with him risk of alcohol withdrawal and how we would monitor and manage it with a focus on keeping him safe should it become an issue this hospital stay Plan Acute hypoxic respiratory failure ? Secondary to COPD exacerbation ? Secondary pneumonia ?secondary to diastolic CHF CONCLUSIONS Normal left ventricular size and systolic function, EF 71%.mild left ventricular hypertrophy. No regional wall motion abnormalities. Grade II/IV diastolic dysfunction, moderately elevated filling pressures. Thickened aortic valve. Trace mitral valve regurgitation. There is no pericardial effusion. There are no intracardiac masses. Compared to the study from a 10/05/2020, there may be a significant change ? CT angiogram the chest no evidence of pulmonary embolism, does have hazy groundglass left perihilar infiltrates, trace left pleural effusion ? Plan ? 1 dose Lasix today ? Increase Solu-Medrol to 40 mg IV every 8 hours ? Continue Rocephin ? Continue azithromycin -Continue DuoNeb -Encouraged to get up out of bed, VTE prophylaxis: Lovenox GI Prophylaxis: PPI Antibiotics: Rocephin and azithromycin initiated on 12/30 Pending studies: Blood cultures, echocardiogram, a.m. lipid panel and A1c, d dimer Telemetry: Ordered secondary to respiratory symptoms and reported cardiac history Dumont: not currently indicated, did require straight catheter urinalysis in the ER Line(s): peripheral IVs Disposition plan: Home with outpatient follow up to primary care provider, pulmonology plus or minus possibility of cardiology depending on clinical course Code Status: Full Code Supportive care otherwise Findings, concerns and plans were discussed with patient and he was given an opportunity to ask questions Plan for today PT OT, up out of bed, Solu-Medrol, steroids, diuresis Attestations 2 Medical Necessity Statement*: Patient requires hospitalization for fluid overload requiring diuresis, pneumonia requiring IV antibiotics, COPD history of aspiration, requiring steroids Diagnoses Community acquired pneumonia of left lower lobe of lung J18.9 Laterality: left Lung location: lower lobe of lung Acute exacerbation of chronic obstructive airways disease J44.1 Nocturia R35.1 Hyponatremia E87.1 Primary hypertension I10 Hypertension type: primary hypertension History of coronary angioplasty Z98.61 Gastroesophageal reflux disease without esophagitis K21.9 Esophagitis presence: without esophagitis 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
[2024-01-03] MEDS: FUROsemide 10 mg/mL SDV 4mL 40 MG IVP (14:11)
[2024-01-03 16:36] LABS: Glucose Point of Care 130 mg/dL (70-110)
[2024-01-03] MEDS: enoxaparin 40 mg/0.4 mL Syringe SUBCUT (18:06)
[2024-01-03 22:42] LABS: Glucose Point of Care 131 mg/dL (70-110)
[2024-01-04] VITALS (8 sets, daily range): BP systolic 142–170; BP diastolic 74–91; PULSE 70–86; RESP 14–20; TEMP 36.6–36.8; O2SAT 88–97; BMI 27.8
[2024-01-04] MEDS: ipratropium-albuterol 3 mL Neb INHALATION ×2 (02:28→08:04)
[2024-01-04] MEDS: methylPREDNISolone sod succ 40 mg/mL INJ IVP ×2 (04:20→10:48)
[2024-01-04 05:59] LABS: Basophils % 0.1 %; Hematocrit 31.7 % (37-53); Lymphocytes % 10.4 %; Mean Corpuscular HGB Conc 31.2 g/dL (30-55); Mean Corpuscular Hemoglobin 28.8 pg (27-33); Mean Corpuscular Volume 92.2 fl (82-101); Mean Platelet Volume 9.5 fL (7.4-10.4); Monocytes % 10.3 %; Neutrophils % 78.5 %; Nucleated Red Blood Cells % 0 %; Platelet Count 289 10^3/cmm (157-399); Red Blood Count 3.44 10^6/uL (3.85-5.65); Red Cell Distribution Width 14.2 % (12.1-15.1); White Blood Count 9.93 10^3/uL (3.29-11.43)
[2024-01-04 06:53] LABS: Glucose Point of Care 147 mg/dL (70-110)
[2024-01-04 07:00] LABS: Alanine Aminotransferase 104 U/L (0-41); Albumin Level 3.4 g/dL (3.5-5.2); Alkaline Phosphatase 49 U/L (40-130); Anion Gap 12.7 (5-19); Aspartate Amino Transferase 57 U/L (0-40); Blood Urea Nitrogen 24 mg/dL (8-23); Calcium 8.9 mg/dL (8.5-10.5); Carbon Dioxide 31 mmol/L (22-29); Chloride 98 mmol/L (98-107); Creatinine Clr Calc Pharmacy 79.9307; Globulin 2.3 g/dL (1.3-4.6); Glomerular Filtration Rate 83.9 mL/min (90-130); Glucose 91 mg/dL (65-115); Magnesium 1.8 mg/dL (1.7-2.3); Osmolality Calculated 288 mOsm/kg (285-295); Phosphorus 3.5 mg/dL (2.5-4.5); Potassium 4.7 mmol/L (3.5-5.1); Sodium 137 mmol/L (136-145); Total Bilirubin 0.2 mg/dL (0.15-1.2); Total Protein 5.7 g/dL (6.6-8.7)
[2024-01-04 07:08] LABS: NT Pro B Type Natriuretic Pept 1666 pg/mL (0-125)
[2024-01-04] MEDS: budesonide 0.5 mg/2 mL Neb INHALATION (08:04)
[2024-01-04] MEDS: thiamine 100 mg Tablet PO (08:57)
[2024-01-04] MEDS: multivitamin therapeutic Tablet 1 TAB PO (08:57)
[2024-01-04] MEDS: folic acid 1 mg Tablet PO (08:57)
[2024-01-04] MEDS: amlodipine 10 mg Tablet PO (08:57)
[2024-01-04] MEDS: azithromycin 250 mg Tablet 500 MG PO (08:58)
[2024-01-04] MEDS: lisinopril 20 mg Tablet 40 MG PO (08:58)
[2024-01-04] MEDS: pantoprazole DR 40 mg Tablet PO (08:58)
[2024-01-04] MEDS: metoprolol tartrate 25 mg Tablet 50 MG PO (08:58)
[2024-01-04] MEDS: insulin lispro 100 unit/1 mL SUBCUT (08:58)
[2024-01-04] MEDS: docusate sodium 100 mg Capsule PO (08:58)
[2024-01-04] MEDS: hyDRALAzine 10 mg Tablet PO (08:58)
[2024-01-04] MEDS: fluticasone nasal spray 16gm Btl 1 SPRAY INTRANASAL (08:59)
[2024-01-04] MEDS: FUROsemide 10 mg/mL SDV 4mL 40 MG IVP (09:23)
--- NOTE | 2024-01-04 09:30 | P.DS_ITS ---
Discharge Providers Date of Admission: 12/31/23 14:16 Date of Discharge: January 04, 2024 Attending Provider at Admission: Emily Monreal MD Attending Provider at Discharge: Alex Roberts MD Primary Care Provider: Osiris Quispe NP Diagnoses at Discharge Discharge Diagnosis (1) Community acquired pneumonia: Status: Acute Qualifiers: Laterality: left Lung location: lower lobe of lung Qualified Code(s): J18.9 - Pneumonia, unspecified organism (2) Acute exacerbation of chronic obstructive airways disease: Status: Acute (3) Nocturia: Status: Acute (4) Hyponatremia: Status: Acute (5) Hypertension: Status: Acute Qualifiers: Hypertension type: primary hypertension Qualified Code(s): I10 - Essential (primary) hypertension (6) History of coronary angioplasty: Status: Chronic Permanent problem details: ~2009 or earlier in [place], [place], had angioplasty of several vessels, no stents per him (7) GERD (gastroesophageal reflux disease): Status: Acute Qualifiers: Esophagitis presence: without esophagitis Qualified Code(s): K21.9 - Gastro-esophageal reflux disease without esophagitis (8) Osteoarthritis: Status: Acute Qualifiers: Osteoarthritis location: multiple joints Osteoarthritis type: primary Qualified Code(s): M15.9 - Polyosteoarthritis, unspecified (9) Alcohol use: Status: Acute Permanent problem details: daily Reason for Visit Reason for Visit: resp distress Hospital Course Hospital Course Moisés Mann is a 68 year old male with past medical history of COPD, CVA with mild right-sided weakness, hypertension, GERD, osteoarthritis of both hips, who recently stopped smoking 6 months ago comes to emergency department for below listed complaints. Mr. Mann is a 68-year-old male with past medical history of COPD, CVA, hypertension. He reports he quit smoking about 6 months ago and that he is a current everyday drinker averaging about 6-10 beers a day. He presents to the emergency department with chief complaints of shortness of breath. Patient states that about the 3 days ago he started experiencing shortness of breath with exertion and with this he was experiencing symptoms of lightheadedness and nausea. To help relieve the shortness of breath he would have to take frequent breaks, or even sit down for a while and that it took about 15 minutes to catch his breath. He also mentions using his at home breathing treatments, to help with his SOB. Patient denies any pain in his chest, and states he does not use oxygen at home. He is currently on 4 L nasal cannula. Mr. Mann reports that he recently went to the doctor's office a week ago and today completed a week of antibiotics and steroids in hoping to help with shortness of breath. He did not feel as though he was getting better and decided come into the emergency department to be evaluated. While in the emergency department cbc, bmp, troponin, EKG, UA, chest x-ray were obtained. Patient received IV azithromycin, ceftriaxone, 1 L bolus, DuoNeb treatment. Plan is to admit patient to medical surgical floor for further treatment and care. Patient presented to [facility] for acute hypoxic respiratory failure secondary to COPD, pneumonia, diastolic CHF, received IV antibiotics, steroid therapy, diuresis, slow clinical improvement, overall clinically improved though, will be discharged home on 2L and a prednisone burst, Levaquin, close follow-up with primary care as outpatient, follow-up with pulmonary as outpatient, advised to stop smoking exposure Physical Exam Const: COMMON NORMALS: no acute distress and patient oriented x3 Resp: COMMON NORMALS: normal respiratory effort, No retractions, No use of accessory muscles and clear to auscultation bilaterally AUSCULTATION: clear to auscultation bilaterally Cardio: COMMON NORMALS: regular rate, regular rhythm, S1 normal heart sound present and S2 normal heart sound present RATE: regular rate RHYTHM: regular rhythm HEART SOUNDS: S1 normal heart sound present and S2 normal heart sound present GI: COMMON NORMALS: Normal to inspection, nondistended, normoactive bowel sounds present Extremity: COMMON NORMALS: no pedal edema Neuro: COMMON NORMALS: patient oriented x3 Psych: COMMON NORMALS: mental status grossly normal Discharge Data Studies Completed and Pending Completed Studies During Hospitalization Category Date Time Status CT angio chest PE protcl [id number] Routine Cat Scan 01/02/24 10:59 Completed XR chest 1V portable [id number] Stat Exams 12/31/23 11:20 Completed CV. echo complete* [id number] Routine Ultrasound 12/31/23 16:15 Completed Radiology Impressions Chest X-Ray 12/31/23 11:20 IMPRESSION: 1. Patchy bilateral infiltrates, left side greater than right. 2. Subtle right-sided hilar lymphadenopathy, most likely reactive. Laboratory Results WBC 9.93 10^3/uL (3.29-11.43) 01/04/24 04:59 RBC 3.44 10^6/uL (3.85-5.65) L 01/04/24 04:59 Hgb 9.90 g/dL (11.27-16.99) L 01/04/24 04:59 Hct 31.7 % (37-53) L 01/04/24 04:59 MCV 92.2 fl (82-101) 01/04/24 04:59 MCH 28.8 pg (27-33) 01/04/24 04:59 MCHC 31.2 g/dL (30-55) 01/04/24 04:59 RDW 14.2 % (12.1-15.1) 01/04/24 04:59 Plt Count 289 10^3/cmm (157-399) 01/04/24 04:59 MPV 9.5 fL (7.4-10.4) 01/04/24 04:59 Neut % (Auto) 78.5 % 01/04/24 04:59 Lymph % (Auto) 10.4 % 01/04/24 04:59 [place] % (Auto) 10.3 % 01/04/24 04:59 Eos % (Auto) 0.0 % 01/04/24 04:59 Baso % (Auto) 0.1 % 01/04/24 04:59 Neut # (Auto) 7.80 10^3/uL (1.8-7.7) H 01/04/24 04:59 Lymph # (Auto) 1.0 10^3/uL (0.8-4.8) 01/04/24 04:59 [place] # (Auto) 1.0 10^3/uL (0.2-0.9) H 01/04/24 04:59 Eos # (Auto) 0.0 10^3/uL (0.0-0.8) 01/04/24 04:59 Baso # (Auto) 0.0 10^3/uL (0.0-0.1) 01/04/24 04:59 Nucleated RBC % (auto) 0 % 01/04/24 04:59 Nucleated RBCs # 0.0 /100WBC 01/04/24 04:59 PT 13.40 SECONDS (12.1-14.9) 01/01/24 05:09 INR 0.99 (0.8-1.2) 01/01/24 05:09 D-Dimer 0.83 ug/mLFEU (0-0.59) H 01/01/24 05:09 Specimen Type Arterial 12/31/23 15:14 Sample Site Radial, right 12/31/23 15:14 ABG pH 7.41 (7.35-7.45) 12/31/23 15:14 ABG pCO2 36.6 mmHg (35-45) 12/31/23 15:14 ABG pO2 76.0 mmHg (80.0-100.0) L 12/31/23 15:14 ABG PO2/FiO2 Ratio 0 12/31/23 15:14 ABG HCO3 23.2 mmol/L (22-26) 12/31/23 15:14 ABG Base Excess -1.2 mmol/L (-2.0-2.0) 12/31/23 15:14 Maurice Test Pos 12/31/23 15:14 Hematocrit 31.5 % (42-52) L 12/31/23 15:14 O2 Delivery Device Nc 12/31/23 15:14 O2 Liters/Min 4.0 % 12/31/23 15:14 FiO2 36.0 % 12/31/23 15:14 Chinese Medicine Practitioner ID Monro 12/31/23 15:14 Sodium 137 mmol/L (136-145) 01/04/24 04:59 Potassium 4.7 mmol/L (3.5-5.1) 01/04/24 04:59 Chloride 98 mmol/L (98-107) 01/04/24 04:59 Carbon Dioxide 31 mmol/L (22-29) H 01/04/24 04:59 Anion Gap 12.7 (5-19) 01/04/24 04:59 BUN 24 mg/dL (8-23) H 01/04/24 04:59 Creatinine 0.9 mg/dL (0.7-1.2) 01/04/24 04:59 GFR Calculation 83.9 mL/min (90-130) L 01/04/24 04:59 Glucose 91 mg/dL (65-115) 01/04/24 04:59 POC Glucose 147 mg/dL (70-110) H 01/04/24 06:48 Estimat Average Glucose 108 01/01/24 05:09 Hemoglobin A1c 5.4 % (4.0-6.0) 01/01/24 05:09 Calculated Osmolality 288 mOsm/kg (285-295) 01/04/24 04:59 Calcium 8.9 mg/dL (8.5-10.5) 01/04/24 04:59 Phosphorus 3.5 mg/dL (2.5-4.5) 01/04/24 04:59 Magnesium 1.8 mg/dL (1.7-2.3) 01/04/24 04:59 Total Bilirubin 0.2 mg/dL (0.15-1.2) 01/04/24 04:59 AST 57 U/L (0-40) H 01/04/24 04:59 ALT 104 U/L (0-41) H 01/04/24 04:59 Alkaline Phosphatase 49 U/L (40-130) 01/04/24 04:59 Troponin T Baseline 21 ng/L (0-15) H 12/31/23 11:36 Troponin T 120 Minute 18.86 ng/L (0-15) H 12/31/23 13:32 Delta Troponin T -2.14 ABS# (0-10) L 12/31/23 13:32 Troponin T Hi Sens 6Hr 20.77 ng/L (0-15) H 12/31/23 17:34 Troponin T Hi Sens 6Hr Delta -0.23 ng/L (0-12) L 12/31/23 17:34 NT-Pro-B Natriuret Pep 1666 pg/mL (0-125) H 01/04/24 04:59 Total Protein 5.7 g/dL (6.6-8.7) L 01/04/24 04:59 Albumin 3.4 g/dL (3.5-5.2) L 01/04/24 04:59 Globulin 2.3 g/dL (1.3-4.6) 01/04/24 04:59 Triglycerides 111 mg/dL (0-150) 01/01/24 05:09 Cholesterol 161 mg/dL (0-200) 01/01/24 05:09 LDL Cholesterol, Calc 46 mg/dL (50-129) L 01/01/24 05:09 HDL Cholesterol 93 mg/dL (60-100) 01/01/24 05:09 LDL/HDL Ratio 0.49 RATIO (0.00-3.22) 01/01/24 05:09 Cholesterol/HDL Ratio 1.73 mg/dL (1.0-5.00) 01/01/24 05:09 Procalcitonin 0.07 ng/mL (0-0.5) 12/31/23 11:36 Urine Color Yellow (Yellow) 12/31/23 12:58 Urine Appearance Clear (CLEAR) 12/31/23 12:58 Urine pH 5 (5-7) 12/31/23 12:58 Ur Specific Bigfoot 1.020 (1.005-1.030) 12/31/23 12:58 Urine Protein 1+ (Negative) H 12/31/23 12:58 Urine Glucose (UA) Norm (Normal) 12/31/23 12:58 Urine Ketones 1+ (Negative) H 12/31/23 12:58 Urine Blood Neg (Negative) 12/31/23 12:58 Urine Nitrate Negative (Negative) 12/31/23 12:58 Urine Bilirubin Neg (Negative) 12/31/23 12:58 Urine Urobilinogen Neg mg/dL (Negative) 12/31/23 12:58 Ur Leukocyte Esterase Negative (Negative) 12/31/23 12:58 Urine RBC 0-4 /hpf (0-2) H 12/31/23 12:58 Urine WBC 0-4 /hpf (0-5) H 12/31/23 12:58 Ur Squamous Epith Cells 0-4 /hpf (0-5) H 12/31/23 12:58 Amorphous Sediment 2+ /hpf 12/31/23 12:58 Urine Bacteria Trace /hpf (NONE) 12/31/23 12:58 Urine Mucus Trace /hpf 12/31/23 12:58 Vitals Last Vital Signs Temp 97.8 F 01/04/24 07:57 Pulse 85 01/04/24 08:00 Resp 20 H 01/04/24 08:00 BP 170/91 01/04/24 07:57 Pulse Ox 97 01/04/24 08:00 O2 Del Method Nasal Cannula 01/04/24 08:00 O2 Flow Rate 2 01/04/24 08:00 Discharge Plan Discharge Patient Disposition: Home Condition: Stable Prescriptions: New hydralazine 10 mg Tablet 10 mg PO TID 30 Days Qty: 90 0RF Vitamin B-1 (mononitrate) 100 mg Tablet 100 mg PO DAILY 30 Days Qty: 30 0RF Thera 400 mcg Tablet 1 tab PO DAILY 30 Days Qty: 30 0RF prednisone 20 mg tablet 20 mg PO BID 5 Days Qty: 10 0RF levofloxacin 750 mg tablet 750 mg PO DAILY 5 Days Qty: 5 0RF metoprolol tartrate 50 mg tablet 50 mg PO Q12H 30 Days Qty: 60 0RF Continued pantoprazole 40 mg tablet,delayed release (DR/EC) 40 mg PO DAILY lisinopril 40 mg tablet 40 mg PO DAILY amlodipine 10 mg tablet 10 mg PO DAILY ipratropium-albuterol 0.5 mg-3 mg(2.5 mg base)/3 mL solution for nebulization 3 ml inhalation QID PRN (Reason: Shortness Of Breath Or Wheezing) fluticasone propionate [Allergy Relief (fluticasone)] 50 mcg/actuation spray,suspension 1 spray intranasal BID Rx Instructions: administer into each nostril naproxen 500 mg tablet 500 mg PO BID PRN (Reason: pain) albuterol sulfate 90 mcg/actuation HFA aerosol inhaler 2 puff inhalation Q6H PRN (Reason: Shortness Of Breath Or Wheezing) Breztri Aerosphere 160-9-4.8 mcg/actuation HFA aerosol inhaler 2 inh inhalation BID Qty: 10.7 6RF Held prednisone 10 mg tablet 10 mg PO DAILY Hold Instructions: Resume on 01/10/24. hold until you finish prednisone burst Discontinued metoprolol tartrate 100 mg tablet 100 mg PO DAILY Discharge Orders: Discharge Order (Routine); Ordered 01/04/24 Ordered By: Alex Roberts Referrals: Osiris Quispe NP [Primary Care Provider] - Datar,Leonardo Sanon MD [Physician] - 1 month Discharge Diet: Cardiac Discharge Activity: Resume usual activity Patient Instructions: Opioid Safety, Pain Management Activity Restrictions/Additional Instructions: -please stop smoking exposure -please monitor for fever -if worsening shortness of breath go to emergency room Discharge Attestations Time Spent in Discharge Care*: greater than 30 min Time Spent in Smoking Cessation: more than 10 minutes sop smoking, copd worsening risk, risk of cancer, risk of recurrent hospitaliz]ation Quality Metrics Clinical Quality Measures [ No reported AMI, CVA or VTE this stay] Coding Level of Care Code 52742 Total time (in minutes) for Discharge: 45 Diagnoses Community acquired pneumonia of left lower lobe of lung J18.9 Laterality: left Lung location: lower lobe of lung Acute exacerbation of chronic obstructive airways disease J44.1 Nocturia R35.1 Hyponatremia E87.1 Primary hypertension I10 Hypertension type: primary hypertension History of coronary angioplasty Z98.61 Gastroesophageal reflux disease without esophagitis K21.9 Esophagitis presence: without esophagitis 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
[2024-01-04 11:31] LABS: Glucose Point of Care 107 mg/dL (70-110)
--- NOTE | 2024-01-04 12:41 | PC.NURSE ---
Discharge has been delayed due to waiting for home oxygen to be dropped off.
== END 2024-01-04 14:08 | disposition home health service (06) | DRG 193 ==
LOC: ER 17:42 → MEDSURG 18:07
PROVIDERS: Admitting Provider Hospitalist; Emergency Provider Family Medicine; PCP Nurse Practitioner Family; Visit Provider Family Medicine
DX: J18.9 Pneumonia, unspecified organism (principal); I50.33 Acute on chronic diastolic (congestive) heart failure; J96.21 Acute and chronic respiratory failure with hypoxia; I69.951 Hemiplegia and hemiparesis following unspecified cerebrovascular disease affecting right dominant side; J44.0 Chronic obstructive pulmonary disease with (acute) lower respiratory infection; J44.1 Chronic obstructive pulmonary disease with (acute) exacerbation; E87.1 Hypo-osmolality and hyponatremia; I11.0 Hypertensive heart disease with heart failure; K21.9 Gastro-esophageal reflux disease without esophagitis; M15.9 Polyosteoarthritis, unspecified; F10.10 Alcohol abuse, uncomplicated; R35.1 Nocturia; R00.0 Tachycardia, unspecified; Z87.891 Personal history of nicotine dependence
CPT/HCPCS: 36415; 36416; 36600; 71045; 71275; 80048; 80053; 80061; 81001; 82803; 82962; 83036; 83735; 83880; 84100; 84145; 84484; 85025; 85378; 85610; 93005; 93306; 94640; 94760; 96365; 96367; 96372; 97110; 97116; 97161; 97166; 97535; 99285; J0456; J0696; J1650; J1815; J1940; J2920; J3411; J7030; J7050; J7512; J7626; Q0144; Q9967

== ENCOUNTER → 2024-03-05 09:21 | Outpatient (BNVA) | payer OTHER, MEDICAID, SELFPAY | PROVIDERS: PCP Nurse Practitioner Family; Visit Provider Internal Medicine Pulmonary Disease | DX: J43.9 Emphysema, unspecified (principal); R91.8 Other nonspecific abnormal finding of lung field; Z71.6 Tobacco abuse counseling; Z99.81 Dependence on supplemental oxygen; F17.200 Nicotine dependence, unspecified, uncomplicated | CPT/HCPCS: 99204 ==

== ENCOUNTER → 2024-05-21 11:51 | Outpatient (BNVA) | payer OTHER, MEDICAID, SELFPAY | PROVIDERS: PCP Nurse Practitioner Family; Referring Provider Nurse Practitioner Family; Visit Provider Internal Medicine | DX: I25.10 Atherosclerotic heart disease of native coronary artery without angina pectoris (principal); F17.200 Nicotine dependence, unspecified, uncomplicated; J43.9 Emphysema, unspecified; Z98.61 Coronary angioplasty status; I11.0 Hypertensive heart disease with heart failure; I50.30 Unspecified diastolic (congestive) heart failure | CPT/HCPCS: 99214 ==

== ENCOUNTER → 2024-06-16 09:53 | Outpatient (BNVA) | payer OTHER, MEDICAID, SELFPAY | PROVIDERS: PCP Nurse Practitioner Family; Visit Provider Surgery | DX: K21.9 Gastro-esophageal reflux disease without esophagitis (principal); Z12.11 Encounter for screening for malignant neoplasm of colon | CPT/HCPCS: 99024; 99204 ==

== ENCOUNTER 2024-06-18 16:10 | Outpatient (CLI) | payer OTHER, MEDICAID, SELFPAY ==
--- NOTE | 2024-06-18 16:14 | CT_ITS ---
WS: [id number] LDCT LUNG CANCER SCREENING HISTORY: NICOTINE DEPENDENCE TECHNIQUE: Axial imaging performed from the apices to 1 cm below the costophrenic angles. Coronal and sagittal reformats are submitted with axial MIP series. All CT scans at [facility] use at least one of these dose optimization techniques: automated exposure control; mA and/or kV adjustment per patient size (includes targeted exams where dose is matched to clinical indication); or iterativ e reconstruction. DLP: 61.81 mGy.cm DIvol: Mean CTDIvol: 1.30 (mGy) COMPARISON: 01/02/2024 Diagnostic quality: Satisfactory Lungs: Mild biapical pleural thickening. Paraseptal emphysema. Tiny micronodule versus ectatic vessel RIGHT upper lobe, image 38 of series 4. This is less than 3 mm. Additional tiny micronodules in the RIGHT upper lobe on image 85 and 86 of series 4. There are additional subpleural micronodules noted b ilaterally. There are additional very tiny micronodules scattered throughout both lungs. Heart: Normal size heart with no pericardial effusion.. Mild coronary artery calcification. 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 No mediastinal or hilar adenopa thy on this unenhanced exam. Negative chest wall. Marked atherosclerosis thoracic aorta. Normal size pulmonary artery. No adrenal mass. CT/CT lung screening [id number] IMPRESSION: LUNG-RADS: 2-Benign Appearance or Behavior FOLLOW UP: 12 Month: Continue annual screening with LDCT OTHER FINDINGS (S MODIFIER): None.
== END 2024-06-18 16:11 | disposition home or self-care (01) ==
LOC: RAD 16:11
PROVIDERS: PCP Nurse Practitioner Family; Visit Provider Nurse Practitioner Family
DX: F17.210 Nicotine dependence, cigarettes, uncomplicated (principal); J43.8 Other emphysema; R91.8 Other nonspecific abnormal finding of lung field; I70.0 Atherosclerosis of aorta
CPT/HCPCS: 71271

== ENCOUNTER 2024-07-14 08:13 | Outpatient (CLI) | payer OTHER, MEDICAID, SELFPAY ==
--- NOTE | 2024-07-14 | ECG_ITS ---
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 Interpretive Statements NAME OF STUDY: LEXISCAN SESTAMIBI STRESS TEST INDICATION: [CP, ] Procedure: At the baseline, the blood pressure was 128/59 mmHg with a heart rate of 60 bpm. The electrocardiogram showed normal sinus rhythm, normal axis with normal ST and T's. The Lexiscan was infused over a period of 20 seconds. A total of 0.4 mg of Lexiscan was infused. The stress phase was continued for a total of 5 minutes. Heart rate was at the end of stress phase was 70 bpm and a blood pressure of 147/71 mmHg. The EKG at the peak infusion revealed normal sinus rhythm with no significant ST-T wave changes. Sestamibi was injected 20 seconds after the Lexiscan infusion. Blood pressure at the end of recovery phase was 148/68 mmHg with a heart rate of 69 bpm. Conclusion: 1. Normal EKG response to Lexiscan infusion 2. No Lexiscan induced chest pain or cardiac arrhythmia. 3. Normal blood pressure and heart rate response. 4. Sestamibi/sestamibi perfusion scan pending; see separate report. Electronically Signed On 07-15-2024 9:10:05 CDT by Jeff English M.D. [email or web address]
[2024-07-14 08:17] VITALS: BMI 24.7
--- NOTE | 2024-07-14 08:18 | NMCV_ITS ---
NM lori perf SPECT r/s* [id number] Johnathan Moisés Age: 69 Gender: M : 1955 Exam Date: 07/14/2024 08:18 Ordering Phys: Jeff English M.D ([email or web address]) Technologist: MARISSA Sr Exam Location: [facility] Indications: cp STRESS TEST Please see separate stress test report in [facility] for full findings IMAGE PROTOCOL Rest/Stress 1 Lexiscan Day Radiopharmaceutical Dose (mCi) Administration Site Administered by Rest: Tc-99m 10.8 IV [facility] Sestamibi Stress:Tc-99m 32.8 IV Carmelina Diazgle, [facility] Sestamibi Rest: 14-Jul-2024 60 Discovery 630 Stress: 14-Jul-2024 30 Discovery 630 0.4mg Lexiscan. Images obtained in supine and prone position. SPECT RESULTS Technical Quality: Good Raw Data Analysis: Normal Image Corrections: No attenuation or motion correction applied Summed Stress Score: 1 Summed Rest Score: 6 Summed Difference Score: 0 PERFUSION FINDINGS SPECT images demonstrate homogeneous tracer distribution throughout the myocardium. FUNCTIONAL RESULTS (calculated via Gated SPECT) Stress Image LV EF (%): 89 Stress EDV (mL):53 TID: 0.96 Stress ESV (mL):6 FUNCTIONAL FINDINGS: There is normal left ventricular systolic function. IMPRESSIONS 1. Normal myocardial perfusion imaging with no evidence of ischemia 2. LV systolic function is normal Jeff English MD (Electronically Signed) Final Date: 14 July 2024 12:05 S
[2024-07-14] MEDS: regadenoson 0.4 Mg/5 ml Syringe IVP (09:45)
[2024-07-14 10:01] VITALS: BP 148/68; PULSE 69
== END 2024-07-14 08:14 | disposition home or self-care (01) ==
PROVIDERS: PCP Nurse Practitioner Family; Visit Provider Internal Medicine
DX: R07.9 Chest pain, unspecified (principal)
CPT/HCPCS: 36415; 78452; 93017; 96374; A9500; J2785

== ENCOUNTER 2024-07-23 05:54 | Day surgery (SDC) | payer OTHER, MEDICAID, SELFPAY ==
[2024-07-23 06:18] VITALS: BP 116/58; PULSE 48; RESP 16; TEMP 36.4; O2SAT 98; BMI 24.7
[2024-07-23] MEDS: sodium chloride 0.9% 1,000 ML 30 ML IV (06:26)
--- NOTE | 2024-07-23 06:52 | ANES.PREANE2 ---
Pre-Anesthetic Assessment Height/Weight: Height 1.7 m Weight 71.668 kg Temp Pulse Resp BP Pulse Ox O2 Del Method 97.6 F 48 L 16 116/58 98 Room Air 07/23/24 06:18 07/23/24 06:18 07/23/24 06:18 07/23/24 06:18 07/23/24 06:18 07/23/24 06:18 Preop Diagnosis: GERD, screening Operation Date: 07/23/24 07:00 Proposed Procedures p EGD - 89928, 05372, G0121, Z12.11, K21.9(Not Applicable) - Fernando Clemente DO s Colonoscopy(Not Applicable) - Fernando Clemente DO Was Beta Charisse taken within 24 hours: Yes Last intake: Intake Last Liquid Date 07/22/24 Last Liquid Time 19:00 Last Solid Date 07/21/24 Last Solid Time 18:00 Social Alcohol and Tobacco Exam alert, oriented x 3, clear to auscultation bilaterally and regular rate & rhythm Airway Submandibular: within normal limits Cervical ROM: within normal limits Mallampati: Class II Dentition: false History/ROS No significant history except as noted and No significant complaints Pulmonary Chronic Obstructive Pulmonary Disease and Shortness of Breath CV/HEM Hypertension None reported Hepatic None reported GI Gastroesophageal Reflux Disease Metabolic None reported Musc/skel Osteoarthritis/DJD Neuropsych None reported Anesthetic Plan ASA status: 3 Anesthesia: Anesthesia Evaluation and MAC Risk of > 500 ml blood loss (7ml/kg in children): No Medications/Allergies Home Medications Medication Instructions Recorded Confirmed Last Taken Type fluticasone propionate 50 1 spray intranasal BID PRN Allergy 09/16/20 07/23/24 07/21/24 History mcg/actuation nasal Symptoms spray,suspension (Allergy Relief (fluticasone)) ipratropium 0.5 mg-albuterol 3 mg 3 ml inhalation QID PRN Shortness 09/16/20 07/23/24 07/22/24 History (2.5 mg base)/3 mL nebulization Of Breath Or Wheezing soln lisinopril 40 mg tablet 40 mg PO DAILY 09/16/20 07/23/24 07/23/24 History naproxen 500 mg tablet 500 mg PO BID PRN pain 06/13/23 07/23/24 07/23/24 History albuterol sulfate 90 mcg/actuation 2 puff inhalation Q6H PRN 06/25/23 07/23/24 07/23/24 History aerosol inhaler Shortness Of Breath Or Wheezing budesonide 160 mcg-glycopyr 9 2 inh inhalation BID #10.7 grams 03/05/24 07/23/24 07/23/24 Rx mcg-formot 4.8 mcg/actuation HFA inhaler (Breztri Aerosphere) pantoprazole 40 mg tablet,delayed 40 mg PO BID 6 weeks #84 tabs 06/16/24 07/23/24 07/23/24 Rx release amlodipine 5 mg tablet 5 mg PO DAILY 07/21/24 07/23/24 07/23/24 History Allergies Allergy/AdvReac Type Severity Reaction Status Date / Time No Known Allergies Allergy Verified 06/16/24 10:16 Current Medications Generic Name Dose Route Start Last Admin Trade Name Freq PRN Reason Stop Dose Admin Sodium Chloride 1,000 mls @ 30 mls/hr 07/23/24 06:15 07/23/24 06:26 Sodium Chloride 0.9% IV 07/24/24 06:14 30 mls/hr .Q24H JANELL Administration PFSH Anesthesia Medical History Abnormal CT lung screening 04/2023, repeat scan 07/2023 without same findings History of myocardial perfusion scan 04/2023 no EKG changes, low probability coronary ischemia History of echocardiogram 03/2023 EF 55-60% History of PFTs 06/2023 severe obstructive disease with no significant change with bronchodilators Osteoarthritis GERD (gastroesophageal reflux disease) Hypertension COPD with emphysema CVA (cerebral vascular accident) right sided weakness, mild residual Surgical History History of coronary angioplasty ~2009 or earlier in [place], [place], had angioplasty of several vessels, no stents per him Social History Smoking and tobacco/nicotine status: current every day tobacco/nicotine user (half a pack a day) Second hand smoke exposure: Yes Alcohol intake: current Alcohol intake frequency: 3 or more drinks per day Alcohol type: beer Substance/Drug Use: former Additional social history: Quit smoking in mid/late 2022 Lives independently: Yes Household members: none Marital status: Single service: Yes Current occupational status: disabled Do you think of yourself as: Straight/Heterosexual Current gender identity: Male Data Anesthesia Cardiac Studies: Echocardiogram 12/31/23 Echocardiogram Ultrasound 10/05/20 Sestamibi Stress Test (Cardiology) 07/14/24 Holter Monitor 01/18/23
--- NOTE | 2024-07-23 06:59 | P.HP_ITS ---
Providers/Chief Complaint Primary Care Provider: Osiris Quispe NP Chief Complaint: Z12.11 History of Present Illness Moisés Mann is a 69 year old male Review of Systems General: Reports: 10 or more systems reviewed and unremarkable except in HPI and below Medications/Allergies Home Medications Medication Instructions Recorded Confirmed Last Taken Type fluticasone propionate 50 1 spray intranasal BID PRN Allergy 09/16/20 07/23/24 07/21/24 History mcg/actuation nasal Symptoms spray,suspension (Allergy Relief (fluticasone)) ipratropium 0.5 mg-albuterol 3 mg 3 ml inhalation QID PRN Shortness 09/16/20 07/23/24 07/22/24 History (2.5 mg base)/3 mL nebulization Of Breath Or Wheezing soln lisinopril 40 mg tablet 40 mg PO DAILY 09/16/20 07/23/24 07/23/24 History naproxen 500 mg tablet 500 mg PO BID PRN pain 06/13/23 07/23/24 07/23/24 History albuterol sulfate 90 mcg/actuation 2 puff inhalation Q6H PRN 06/25/23 07/23/24 07/23/24 History aerosol inhaler Shortness Of Breath Or Wheezing budesonide 160 mcg-glycopyr 9 2 inh inhalation BID #10.7 grams 03/05/24 07/23/24 07/23/24 Rx mcg-formot 4.8 mcg/actuation HFA inhaler (Breztri Aerosphere) pantoprazole 40 mg tablet,delayed 40 mg PO BID 6 weeks #84 tabs 06/16/24 0 07/23/24 07/23/24 Rx release amlodipine 5 mg tablet 5 mg PO DAILY 07/21/24 07/23/24 07/23/24 History Allergies Allergy/AdvReac Type Severity Reaction Status Date / Time No Known Allergies Allergy Verified 06/16/24 10:16 PFSH Acute PFSH: Medical History Abnormal CT lung screening 04/2023, repeat scan 07/2023 without same findings History of myocardial perfusion scan 04/2023 no EKG changes, low probability coronary ischemia History of echocardiogram 03/2023 EF 55-60% History of PFTs 06/2023 severe obstructive disease with no significant change with bronchodilators Osteoarthritis GERD (gastroesophageal reflux disease) Hypertension COPD with emphysema CVA (cerebral vascular accident) right sided weakness, mild residual Surgical History History of coronary angioplasty ~2009 or earlier in [place], [place], had angioplasty of several vessels, no stents per him Social History Smoking and tobacco/nicotine status: current every day tobacco/nicotine user (half a pack a day) Second hand smoke exposure: Yes Alcohol intake: current Alcohol intake frequency: 3 or more drinks per day Alcohol type: beer Substance/Drug Use: former Additional social history: Quit smoking in mid/late 2022 Lives independently: Yes Household members: none Marital status: Single service: Yes Current occupational status: disabled Do you think of yourself as: Straight/Heterosexual Current gender identity: Male Vitals/I&O/Wt Last Vital Signs Temp 97.6 F 07/23/24 06:18 Pulse 48 L 07/23/24 06:18 Resp 16 07/23/24 06:18 BP 116/58 07/23/24 06:18 Pulse Ox 98 07/23/24 06:18 O2 Del Method Room Air 07/23/24 06:18 Weight last 48 hrs Weight 158 lb A&P Assessment and plan (1) GERD (gastroesophageal reflux disease): Qualifiers: Esophagitis presence: without esophagitis Qualified Code(s): K21.9 - Gastro-esophageal reflux disease without esophagitis (2) Colon cancer screening: Plan EGD and colonoscopy Attestations Medical Necessity Statement*: Home Coding Level of Care Code Acute Code for Chg Fwd Diagnoses Gastroesophageal reflux disease without esophagitis K21.9 Esophagitis presence: without esophagitis Colon cancer screening Z12.11
[2024-07-23 07:28] VITALS: BP 96/68; PULSE 68; RESP 17; TEMP 36.1; O2SAT 96
[2024-07-23] MEDS: EPINEPHrine 1 mg/mL INJ XX (07:29)
[2024-07-23 07:43] VITALS: BP 103/74; PULSE 68; RESP 16; O2SAT 100
--- NOTE | 2024-07-23 08:10 | ANE.PACU2 ---
Inpatient post-anesthesia follow up: Airway intact: Yes Vital signs: Temperature 97 F Pulse Rate 68 Respiratory Rate 16 Blood Pressure 103/74 Pulse Oximetry 100 Oxygen Delivery Me thod Room Air Oxygen Flow Rate 4 Fraction of Inspir ed Oxygen Hydration adequate: Yes Nausea and vomiting: No Pain level: 1 Mental status: Baseline
== END 2024-07-23 08:12 | disposition home or self-care (01) ==
PROVIDERS: PCP Nurse Practitioner Family; Visit Provider Surgery
PROC: 0DJ08ZZ Inspection of Upper Intestinal Tract, Via Natural or Artificial Opening Endoscopic (ICD-10-PCS; CPT 43235; principal; 2024-07-23 07:00)
PROC: 0DJD8ZZ Inspection of Lower Intestinal Tract, Via Natural or Artificial Opening Endoscopic (ICD-10-PCS; CPT 45378; 2024-07-23 07:00)
DX: Z12.11 Encounter for screening for malignant neoplasm of colon (principal); F17.210 Nicotine dependence, cigarettes, uncomplicated; K21.00 Gastro-esophageal reflux disease with esophagitis, without bleeding; K29.80 Duodenitis without bleeding; K57.30 Diverticulosis of large intestine without perforation or abscess without bleeding; K64.8 Other hemorrhoids; J44.9 Chronic obstructive pulmonary disease, unspecified; I10 Essential (primary) hypertension; M19.90 Unspecified osteoarthritis, unspecified site; Z86.73 Personal history of transient ischemic attack (TIA), and cerebral infarction without residual deficits
CPT/HCPCS: 43239; 45378; 88305; J0171; J2704; J7030

== ENCOUNTER → 2024-08-11 16:45 | Outpatient (BNVA) | payer OTHER, MEDICAID, SELFPAY | PROVIDERS: PCP Nurse Practitioner Family; Visit Provider Surgery | DX: K21.9 Gastro-esophageal reflux disease without esophagitis (principal) | CPT/HCPCS: 99212 ==

== ENCOUNTER → 2024-09-17 14:06 | Outpatient (BNVA) | payer OTHER, MEDICAID, SELFPAY | PROVIDERS: PCP Nurse Practitioner Family; Visit Provider Internal Medicine | DX: I25.10 Atherosclerotic heart disease of native coronary artery without angina pectoris (principal); F17.200 Nicotine dependence, unspecified, uncomplicated; J43.9 Emphysema, unspecified; Z98.61 Coronary angioplasty status; I10 Essential (primary) hypertension | CPT/HCPCS: 99214 ==

== ENCOUNTER 2024-12-20 21:15 | Inpatient (IN) | payer OTHER, MEDICAID, SELFPAY ==
[2024-12-20 21:21] VITALS: BP 137/69; PULSE 78; RESP 22; TEMP 36.7; O2SAT 98; BMI 25.8
--- NOTE | 2024-12-20 21:38 | XRR_ITS ---
PROCEDURE INFORMATION: Exam: XR Chest Exam date and time: 12/20/2024 9:50 PM Age: 69 years old Clinical indication: Shortness of breath; SOB; Fluid retention; HX copd TECHNIQUE: Imaging protocol: Radiologic exam of the chest. Views: 1 view. COMPARISON: CT lung screening [id number] 06/18/2024 4:15 PM FINDINGS: Lungs: No consolidation. No significant pulmonary edema. Pleural spaces: No pleural effusion. No pneumothorax. Heart/Mediastinum: No cardiomegaly. Bones/joints: No acute findings. XR/XR chest 1V portable [id number] IMPRESSION: No acute chest findings.
--- NOTE | 2024-12-20 22:03 | ECG_ITS ---
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
--- NOTE | 2024-12-20 22:03 | W.ED.SOB ---
HPI - SOB/Dyspnea General: Chief Complaint: Shortness of Breath/Dyspnea Stated Complaint: sob Time Seen by Provider: 12/20/24 21:23 History of Present Illness: HPI Narrative: 69-year-old male gentleman with a history of COPD. He presents with increasing shortness of breath. He uses 2 L of oxygen at home, and notes that he has been profoundly short of breath despite this since around 1:00 in the morning. He has had a cough. He says that he cannot bring up any sputum. No definite fever. He may or may not have been exposed to the influenza virus. He believes that his feet are more swollen than usual. He has used his albuterol inhaler or nebulizer around 8 times in the last 24 hours Related Data Home Medications ?Medication ?Instructions ?Recorded ?Confirmed fluticasone propionate 50 1 spray intranasal BID PRN Allergy 09/16/20 09/17/24 mcg/actuation nasal Symptoms spray,suspension (Allergy Relief (fluticasone)) ipratropium 0.5 mg-albuterol 3 mg 3 ml inhalation QID PRN Shortness 09/16/20 09/17/24 (2.5 mg base)/3 mL nebulization Of Breath Or Wheezing soln lisinopril 40 mg tablet 40 mg PO DAILY 09/16/20 09/17/24 naproxen 500 mg tablet 500 mg PO BID PRN pain 06/13/23 09/17/24 Held on 07/23/24. Instructions: Resume on 07/25/24. albuterol sulfate 90 mcg/actuation 2 puff inhalation Q6H PRN 06/25/23 09/17/24 aerosol inhaler Shortness Of Breath Or Wheezing Previous Rx's ?Medication ?Instructions ?Recorded budesonide 160 mcg-glycopyr 9 2 inh inhalation BID #10.7 grams 03/05/24 mcg-formot 4.8 mcg/actuation HFA inhaler (Breztri Aerosphere) pantoprazole 40 mg tablet,delayed 40 mg PO BID 6 weeks #84 tabs 06/16/24 release pantoprazole 40 mg tablet,delayed 40 mg PO BID 1 month #60 tabs 08/11/24 release (Protonix) amlodipine 5 mg tablet 5 mg PO BID #180 tabs 09/17/24 furosemide 40 mg tablet (Lasix) 40 mg PO DIRECTED #135 tabs 09/17/24 potassium chloride 20 mEq 20 meq PO DAILY #90 tabs 09/17/24 tablet,extended release Allergies Allergy/AdvReac Type Severity Reaction Status Date / Time No Known Allergies Allergy Verified 09/17/24 14:33 [facility] ED PFSH: Medical History Abnormal CT lung screening 04/2023, repeat scan 07/2023 without same findings History of myocardial perfusion scan 04/2023 no EKG changes, low probability coronary ischemia History of echocardiogram 03/2023 EF 55-60% History of PFTs 06/2023 severe obstructive disease with no significant change with bronchodilators Osteoarthritis GERD (gastroesophageal reflux disease) Hypertension COPD with emphysema CVA (cerebral vascular accident) right sided weakness, mild residual Surgical History History of coronary angioplasty ~2009 or earlier in [place], [place], had angioplasty of several vessels, no stents per him Social History Smoking and tobacco/nicotine status: current every day tobacco/nicotine user Second hand smoke exposure: Yes Alcohol intake: current Alcohol intake frequency: 3 or more drinks per day Alcohol type: beer Substance/Drug Use: former Additional social history: Quit smoking in mid/late 2022 Lives independently: Yes Household members: none Marital status: Single service: Yes Current occupational status: disabled Do you think of yourself as: Straight/Heterosexual Current gender identity: Male Physical Exam Const: COMMON NORMALS: no acute distress GENERAL APPEARANCE: cooperative, ill appearing and frail appearing HENMT: COMMON NORMALS: normocephalic, atraumatic and Normal external nose present HEAD & SCALP: normocephalic and atraumatic FACE & SINUS: normal facial exam and face symmetric NOSE: Normal external nose present Eye: COMMON NORMALS: Equal, round and reactive pupils present and EOMs intact bilaterally PUPIL: Yes Equal, round and reactive pupils present Neck/C-Spine: GENERAL: Yes trachea midline Chest: CHEST: Yes Symmetrical chest wall rise Resp: EFFORT & INSPECTION: Yes tachypneic and Yes labored AUSCULTATION: wheezes and diminished lung sounds Cardio: COMMON NORMALS: regular rate and regular rhythm RATE: regular rate RHYTHM: regular rhythm GI: COMMON NORMALS: Normal to inspection, nondistended, normoactive bowel sounds present Extremity: GENERAL: Yes edema Neuro: CONNIE COMA SCALE: document GCS findings Connie coma scale eye opening: Spontaneous Connie coma scale verbal response: Orientated Thicket coma scale motor response: Obey commands Connie coma scale total score: 15 SENSORY EXAM: Yes extremities (intact) Psych: COMMON NORMALS: speech normal SPEECH: Yes normal speech Skin: COMMON NORMALS: no rashes or lesions noted GENERAL SKIN EXAM: no rashes or lesions noted Course Vital Signs: Vital signs: Vital Signs Temperature 98.1 F 12/20/24 21:21 Pulse Rate 94 12/21/24 01:45 Respiratory Rate 18 12/21/24 01:45 Blood Pressure 148/79 12/21/24 01:45 Pulse Oximetry 98 12/21/24 01:45 Oxygen Delivery Me thod Nasal Cannula 12/21/24 01:45 Oxygen Flow Rate 2.5 12/21/24 01:45 MDM - SOB/Dyspnea Medical Decision Making This patient was profoundly short of breath at home. He lives alone. He is given a DuoNeb treatment here, and Solu-Medrol with mild improvement. His pH is normal. He does not seem to be retaining. Chest x-ray is clear. CTA shows bronchitis findings. Swabs are negative for COVID flu and RSV. His white blood cell count is 11. However, his sodium is 122, hemoglobin of 7.9. He will be observed for COPD exacerbation, significant hyponatremia. Hospitalist is aware and has seen the patient. Lab Data 12/20/24 22:05 12/20/24 22:05 Labs/Radiology: Radiology Impressions Chest X-Ray 12/20/24 21:38 IMPRESSION: No acute chest findings. Chest CTA 12/20/24 23:36 IMPRESSION: 1. No pulmonary embolism. 2. Bronchitis with no consolidation to suggest pneumonia. 3. Small left pleural effusion. COMMENTS: The presence of pulmonary emphysema on CT is an independent risk factor for lung cancer. In the absence of a history or active diagnosis of lung cancer, it is recommended that this patient with emphysema be evaluated for enrollment in a low dose CT lung cancer screening program. Laboratory Results WBC 11.74 10^3/uL (3.29-11.43) H 12/20/24 22:05 RBC 3.00 10^6/uL (3.85-5.65) L 12/20/24 22:05 Hgb 7.90 g/dL (11.27-16.99) L 12/20/24 22:05 Hct 25.3 % (37-53) L 12/20/24 22:05 MCV 84.3 fl (82-101) 12/20/24 22:05 MCH 26.3 pg (27-33) L 12/20/24: MCHC 31.2 g/dL (30-55) 12/20/24 22:05 RDW 16.4 % (12.1-15.1) H 12/20/24 22:05 Plt Count 267 10^3/cmm (157-399) 12/20/24 22: MPV 9.4 fL (7.4-10.4) 12/20/24 22:05 Neut % (Auto) 76.9 % 12/20/24 22: Lymph % (Auto) 9.9 % 12/20/24: Cloud % (Auto) 11.5 % 12/20/24 22:05 Eos % (Auto) 0.8 % 12/20/24 22:05 Baso % (Auto) 0.3 % 12/20/24:05 Neut # (Auto) 9.04 10^3/uL (1.8-7.7) H 12/20/24 22:05 Lymph # (Auto) 1.2 10^3/uL (0.8-4.8) 12/20/24 22:05 Cloud # (Auto) 1.4 10^3/uL (0.2-0.9) H 12/20/24 22:05 Eos # (Auto) 0.1 10^3/uL (0.0-0.8) 12/20/24 22:05 Baso # (Auto) 0.0 10^3/uL (0.0-0.1) 12/20/24:05 Nucleated RBC % (auto) 0 % 12/20/24: Nucleated RBCs # 0.0 /100WBC 12/20/24 22:05 Specimen Type Arterial 12/21/24 00:01 Sample Site Brachial, right 12/21/24 00:01 ABG pH 7.42 (7.35-7.45) 12/21/24 00:01 ABG pCO2 37.9 mmHg (35-45) 12/21/24 00:01 ABG pO2 94.3 mmHg (80.0-100.0) 12/21/24 00:01 ABG HCO3 24.4 mmol/L (22-26) 12/21/24 00:01 ABG O2 Saturation 97.8 12/21/24 00:01 ABG Base Excess -0.1 mmol/L (-2.0-2.0) 12/21/24 00:01 Maurice Test N/a 12/21/24 00:01 A-a O2 Gradient 1.1 mmHg (5-10) L 12/21/24 00:01 Hematocrit 26.4 % (42-52) L 12/21/24 00:01 Hgb O2 Saturation 95.8 % (95-100) 12/21/24 00:01 Carboxyhemoglobin 1.4 %THgb (0.4-20.1) 12/21/24 00:01 Methemoglobin 0.7 % (0.4-1.5) 12/21/24 00:01 Total Hemoglobin 8.6 g/dL (14-18) L 12/21/24 00:01 Sodium 126.0 mmol/L (131-143) L 12/21/24 00:01 Potassium 4.2 mmol/L (3.5-5.0) 12/21/24 00:01 Glucose 84.0 mg/dL (70-115) 12/21/24 00:01 Ionized Calcium 1.2 mmol/L (1.1-1.4) 12/21/24 00:01 O2 Delivery Device Nc 12/21/24 00:01 O2 Liters/Min 2.0 % 12/21/24 00:01 Environmental Engineering Professor ID Nikos 12/21/24 00:01 Sodium 122 mmol/L (136-145) L 12/20/24 22:05 Potassium 4.4 mmol/L (3.5-5.1) 12/20/24 22:05 Chloride 88 mmol/L (98-107) L 12/20/24 22:05 Carbon Dioxide 21 mmol/L (22-29) L 12/20/24 22:05 Anion Gap 17.4 (5-19) 12/20/24 22:05 BUN 14 mg/dL (8-23) 12/20/24 22:05 Creatinine 1.2 mg/dL (0.7-1.2) 12/20/24 22:05 GFR Calculation 60.0 mL/min (90-130) L 12/20/24 22:05 Glucose 78 mg/dL (65-115) 12/20/24 22:05 Calculated Osmolality 253 mOsm/kg (285-295) L 12/20/24 22:05 Lactic Acid 1.4 mmol/L (0.5-2.2) 12/20/24 22:05 Calcium 8.9 mg/dL (8.5-10.5) 12/20/24 22:05 Total Bilirubin 0.4 mg/dL (0.15-1.2) 12/20/24 22:05 AST 19 U/L (0-40) 12/20/24 22:05 ALT 13 U/L (0-41) 12/20/24 22:05 Alkaline Phosphatase 62 U/L (40-130) 12/20/24 22:05 NT-Pro-B Natriuret Pep 1451 pg/mL (0-125) H 12/20/24 22:05 Total Protein 6.5 g/dL (6.6-8.7) L 12/20/24 22:05 Albumin 3.6 g/dL (3.5-5.2) 12/20/24 22:05 Globulin 2.9 g/dL (1.3-4.6) 12/20/24 22:05 Ethyl Alcohol < 10 mg/dL (0-10) 12/20/24 22:05 Influenza A (PCR) Negative (Negative) 12/20/24 21:22 Influenza Type B (PCR) Negative (Negative) 12/20/24 21:22 RSV (PCR) Negative (Negative) 12/20/24 21:22 SARS-CoV-2 (PCR) Negative (Negative) 12/20/24 21:22 All radiology interpretation(s) finalized by discharge Discharge Plan Discharge Patient Disposition: Placed in Observation Admit Provider: Asher Bahena Clinical Impression: COPD exacerbation, Acute hyponatremia Condition: Stable Prescriptions: No Action lisinopril 40 mg tablet 40 mg PO DAILY ipratropium-albuterol 0.5 mg-3 mg(2.5 mg base)/3 mL solution for nebulization 3 ml inhalation QID PRN (Reason: Shortness Of Breath Or Wheezing) fluticasone propionate [Allergy Relief (fluticasone)] 50 mcg/actuation spray,suspension 1 spray intranasal BID PRN (Reason: Allergy Symptoms) Rx Instructions: administer into each nostril naproxen 500 mg tablet 500 mg PO BID PRN (Reason: pain) pantoprazole 40 mg tablet,delayed release (DR/EC) 40 mg PO BID 42 Days Qty: 84 1RF pantoprazole [Protonix] 40 mg tablet,delayed release (DR/EC) 40 mg PO BID 30 Days Qty: 60 3RF albuterol sulfate 90 mcg/actuation HFA aerosol inhaler 2 puff inhalation Q6H PRN (Reason: Shortness Of Breath Or Wheezing) Breztri Aerosphere 160-9-4.8 mcg/actuation HFA aerosol inhaler 2 inh inhalation BID Qty: 10.7 6RF amlodipine 5 mg tablet 5 mg PO BID Qty: 180 3RF furosemide [Lasix] 40 mg tablet 40 mg PO DIRECTED Qty: 135 3RF Rx Instructions: Take 40mg AM and 20 MG PM potassium chloride 20 mEq tablet extended release 20 meq PO DAILY Qty: 90 3RF Referrals: Osiris Quispe NP [Primary Care Provider] - Print Language: Gibraltarian Coding Level of Care Code ED 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
[2024-12-20 22:26] LABS: Influenza A NEGATIVE (Negative); Influenza B NEGATIVE (Negative); Respiratory Syncytial Virus Ce NEGATIVE (Negative); SARS-CoV-2 PCR NEGATIVE (Negative)
[2024-12-20 22:31] LABS: Basophils % 0.3 %; Eosinophils # 0.1 10^3/uL (0.0-0.8); Eosinophils % 0.8 %; Hematocrit 25.3 % (37-53); Lymphocytes # 1.2 10^3/uL (0.8-4.8); Lymphocytes % 9.9 %; Mean Corpuscular HGB Conc 31.2 g/dL (30-55); Mean Corpuscular Hemoglobin 26.3 pg (27-33); Mean Corpuscular Volume 84.3 fl (82-101); Mean Platelet Volume 9.4 fL (7.4-10.4); Monocytes # 1.4 10^3/uL (0.2-0.9); Monocytes % 11.5 %; Neutrophils # 9.04 10^3/uL (1.8-7.7); Neutrophils % 76.9 %; Nucleated Red Blood Cells % 0 %; Platelet Count 267 10^3/cmm (157-399); Red Cell Distribution Width 16.4 % (12.1-15.1); White Blood Count 11.74 10^3/uL (3.29-11.43)
[2024-12-20 22:45] LABS: Lactic Sepsis W/Reflex 1.4 mmol/L (0.5-2.2)
[2024-12-20 22:56] LABS: Alanine Aminotransferase 13 U/L (0-41); Albumin Level 3.6 g/dL (3.5-5.2); Alkaline Phosphatase 62 U/L (40-130); Anion Gap 17.4 (5-19); Aspartate Amino Transferase 19 U/L (0-40); Blood Urea Nitrogen 14 mg/dL (8-23); Calcium 8.9 mg/dL (8.5-10.5); Carbon Dioxide 21 mmol/L (22-29); Chloride 88 mmol/L (98-107); Creatinine Clr Calc Pharmacy 57.1921; Globulin 2.9 g/dL (1.3-4.6); Glucose 78 mg/dL (65-115); NT Pro B Type Natriuretic Pept 1451 pg/mL (0-125); Osmolality Calculated 253 mOsm/kg (285-295); Potassium 4.4 mmol/L (3.5-5.1); Sodium 122 mmol/L (136-145); Total Bilirubin 0.4 mg/dL (0.15-1.2); Total Protein 6.5 g/dL (6.6-8.7)
[2024-12-20] MEDS: methylPREDNISolone sod succ 125 mg/2 mL INJ IV (23:00)
--- NOTE | 2024-12-20 23:36 | CTR_ITS ---
PROCEDURE INFORMATION: Exam: CTA Chest With Contrast Exam date and time: 12/21/2024 12:24 AM Age: 69 years old Clinical indication: Cough and shortness of breath; Cough with SOB and hypoxia TECHNIQUE: Imaging protocol: Computed tomographic angiography of the chest with contrast. Exam focused on the arteries. 3D rendering (Not supervised by radiologist): MIP and/or 3D reconstructed images were created by the technologist. Radiation optimization: All CT scans at this facility use at least one of these dose optimization techniques: automated exposure control; mA and/or kV adjustment per patient size (includes targeted exams where dose is matched to clinical indication); or iterative reconstruction. Contrast material: OMNI 350; Contrast volume: 59 ml; Contrast route: INTRAVENOUS (IV); COMPARISON: CT angio chest PE protcl [id number] 01/02/2024 12:16 PM RADIATION DOSE METRICS: Total DLP (mGy-cm): 398.25 FINDINGS: Pulmonary arteries: No pulmonary emboli. 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 Aorta: No aortic aneurysm. No aortic aneurysm. Lungs: Emphysema. No mass or consolidation. Bronchial wall thickening. Pleural spaces: Small left pleural effusion. No pneumothorax. Heart: No cardiomegaly. No pericardial effusion. Lymph nodes: No enlarged lymph nodes. Gallbladder and biliary ducts: Cholelithiasis. Bones/joints: No acute fracture. Soft tissues: Unremarkable. CT/CT angio chest PE protcl [id number] IMPRESSION: 1. No pulmonary embolism. 2. Bronchitis with no consolidation to suggest pneumonia. 3. Small left pleural effusion. COMMENTS: The presence of pulmonary emphysema on CT is an independent risk factor for lung cancer. In the absence of a history or active diagnosis of lung cancer, it is recommended that this patient with emphysema be evaluated for enrollment in a low dose CT lung cancer screening program.
[2024-12-21] VITALS (13 sets, daily range): BP systolic 114–157; BP diastolic 66–87; PULSE 70–99; RESP 16–20; TEMP 36.4–36.8; O2SAT 97–100; BMI 25.9
[2024-12-21 00:13] LABS: ABG PCO2 37.9 mmHg (35-45); ABG PH Result 7.42 (7.35-7.45); Alveolar-Arterial Oxygen Gradi 1.1 mmHg (5-10); Arterial Blood Gas Hematocrit 26.4 % (42-52); Base Excess ABG -0.1 mmol/L (-2.0-2.0); Blood Gas Operator Identificat SAM; Blood Gas Sample Site Brachial, right; Blood Gas Sample Type Arterial; Carboxyhemoglobin 1.4 %THgb (0.4-20.1); HCO3 ABG 24.4 mmol/L (22-26); HGB O2 Sat 95.8 % (95-100); Ionized Calcium Level - ABG 1.2 mmol/L (1.1-1.4); Methemoglobin 0.7 % (0.4-1.5); Oxygen Device NC; Oxygen Saturation ABG 97.8; PO2 ABG 94.3 mmHg (80.0-100.0); Potassium Level - ABG 4.2 mmol/L (3.5-5.0); Total Hemoglobin 8.6 g/dL (14-18)
[2024-12-21] MEDS: ipratropium-albuterol 3 mL Neb INHALATION (00:14)
[2024-12-21] MEDS: FUROsemide 10 mg/mL SDV 10mL 60 MG IVP (00:18)
[2024-12-21] MEDS: iohexol 350 mg/mL 500 mL Btl (per mL) IV (00:35)
--- NOTE | 2024-12-21 01:03 | PM.HP ---
Providers/Chief Complaint Primary Care Provider: Osiris Quispe NP Chief Complaint: sob History of Present Illness Moisés Mann is a 69 year old male with history of COPD, uses 3 L at baseline, drinks 6-8 beers a day, lives alone, active smoker, presented with worsening of shortness of breath and productive cough. Patient is stating that he has been sick like this for last couple weeks, he has started taking mucolytic and cough syrup which has helped with improvement of his symptoms. Patient is stating that he smokes 1 pack/day, uses 3 L of oxygen at baseline, he drinks 6-8 beers almost every day- He has chronic right leg weakness from an old stroke. Uses a cane for ambulation. He has not noticed any fever but endorsing loose stools, shortness of breath without chest pain or fever. Workup in the ER revealed emphysematous changes on CT chest, he is requiring 3 L of oxygen, sodium 122 He does have active wheezing, lower extremity edema 1+ Review of Systems Const: Denies: fever(s) Eyes: Denies: change in vision ENMT: Denies: throat pain Card: Reports: swelling of feet/ankles Resp: Reports: dyspnea GI: Denies: abdominal pain : Denies: flank pain Musc: Denies: neck pain Medications/Allergies Home Medications ?Medication ?Instructions ?Recorded ?Confirmed ?Last Taken ?Type fluticasone propionate 50 1 spray intranasal BID PRN Allergy 09/16/20 09/17/24 07/21/24 History mcg/actuation nasal Symptoms spray,suspension (Allergy Relief (fluticasone)) ipratropium 0.5 mg-albuterol 3 mg 3 ml inhalation QID PRN Shortness 09/16/20 09/17/24 07/22/24 History (2.5 mg base)/3 mL nebulization Of Breath Or Wheezing soln lisinopril 40 mg tablet 40 mg PO DAILY 09/16/20 09/17/24 07/23/24 History naproxen 500 mg tablet 500 mg PO BID PRN pain 06/13/23 09/17/24 07/23/24 History Held on 07/23/24. Instructions: Resume on 07/25/24. albuterol sulfate 90 mcg/actuation 2 puff inhalation Q6H PRN 06/25/23 09/17/24 07/23/24 History aerosol inhaler Shortness Of Breath Or Wheezing budesonide 160 mcg-glycopyr 9 2 inh inhalation BID #10.7 grams 03/05/24 09/17/24 07/23/24 Rx mcg-formot 4.8 mcg/actuation HFA inhaler (Breztri Aerosphere) pantoprazole 40 mg tablet,delayed 40 mg PO BID 6 weeks #84 tabs 06/16/24 09/17/24 07/23/24 Rx release pantoprazole 40 mg tablet,delayed 40 mg PO BID 1 month #60 tabs 08/11/24 09/17/24 Unknown Rx release (Protonix) amlodipine 5 mg tablet 5 mg PO BID #180 tabs 09/17/24 09/17/24 Unknown Rx furosemide 40 mg tablet (Lasix) 40 mg PO DIRECTED #135 tabs 09/17/24 09/17/24 Unknown Rx potassium chloride 20 mEq 20 meq PO DAILY #90 tabs 09/17/24 09/17/24 Unknown Rx tablet,extended release Allergies Allergy/AdvReac Type Severity Reaction Status Date / Time No Known Allergies Allergy Verified 09/17/24 14:33 PFSH Acute PFSH: Medical History Abnormal CT lung screening 04/2023, repeat scan 07/2023 without same findings History of myocardial perfusion scan 04/2023 no EKG changes, low probability coronary ischemia History of echocardiogram 03/2023 EF 55-60% History of PFTs 06/2023 severe obstructive disease with no significant change with bronchodilators Osteoarthritis GERD (gastroesophageal reflux disease) Hypertension COPD with emphysema CVA (cerebral vascular accident) right sided weakness, mild residual Surgical History History of coronary angioplasty ~2009 or earlier in [place], [place], had angioplasty of several vessels, no stents per him Social History Smoking and tobacco/nicotine status: current every day tobacco/nicotine user Second hand smoke exposure: Yes Alcohol intake: current Alcohol intake frequency: 3 or more drinks per day Alcohol type: beer Substance/Drug Use: former Additional social history: Quit smoking in mid/late 2023 Lives independently: Yes Household members: none Marital status: Single service: Yes Current occupational status: disabled Do you think of yourself as: Straight/Heterosexual Current gender identity: Male Vitals/I&O/Wt Last Vital Signs Temp 98.1 F 12/20/24 21:21 Pulse 86 12/21/24 00:17 Resp 20 H 12/21/24 00:17 BP 148/78 12/21/24 00:17 Pulse Ox 100 12/21/24 00:17 O2 Del Method Nasal Cannula 12/21/24 00:17 O2 Flow Rate 2.5 12/21/24 00:17 Weight last 48 hrs Weight 74.843 kg Physical Exam Narrative: Patient sitting in bed without any active chest pain or shortness of breath Currently on 3 L Active wheezing No audible stridor Present and cooperative AOx4 NIH 0 S1, S2 Right-sided leg weakness from old stroke GCS 15 No active deficit Awake Active wheezing Currently on 3 L Lower extremity edema Data 12/20/24 22:05 12/20/24 22:05 A&P Assessment and plan (1) Hypertension: Qualifiers: Hypertension type: primary hypertension Qualified Code(s): I10 - Essential (primary) hypertension (2) GERD (gastroesophageal reflux disease): Qualifiers: Esophagitis presence: without esophagitis Qualified Code(s): K21.9 - Gastro-esophageal reflux disease without esophagitis (3) COPD with emphysema: Qualifiers: Emphysema type: unspecified Qualified Code(s): J43.9 - Emphysema, unspecified (4) SOB (shortness of breath): (5) Requires supplemental oxygen: (6) Smoker: (7) COPD exacerbation: Plan Acute COPD exacerbation Active smoker Currently requiring 2 L At baseline uses 3 L at home Active wheezing Productive cough CT chest report is pending No active chest pain or worsening of shortness of breath Add steroids along DuoNeb Hyponatremia Clinically fluid overloaded Patient drinks 6-8 beers a day Fluid restriction 1200 mL a day Will give 1 dose of salt tablet Continue diuresis Patient will need frequent BMPs every 4 hours Grade 2 diastolic dysfunction with decompensation Continue diuresis Esophagitis with chronic anemia: Hemoglobin stable continue Protonix Internal hemorrhoid history Full code Cardiac diet DVT prophylaxis PDMP PDMP Reviewed: Not Reviewed Attestations Medical Necessity Statement*: More than 2 midnights anticipated for management evaluation of hyponatremia with underlying COPD exacerbation Diagnoses Primary hypertension I10 Hypertension type: primary hypertension Gastroesophageal reflux disease without esophagitis K21.9 Esophagitis presence: without esophagitis Pulmonary emphysema, unspecified emphysema type J43.9 Emphysema type: unspecified SOB (shortness of breath) R06.02 Requires supplemental oxygen Z99.81 Smoker F17.200 COPD exacerbation J44.1
[2024-12-21 01:11] LABS: Alcohol Level < 10 mg/dL (0-10)
[2024-12-21] MEDS: doxycycline 100 mg Tablet PO (02:01)
[2024-12-21] MEDS: sodium chloride 1 gm Tablet PO (02:05)
[2024-12-21 02:06] LABS: Sodium 128 mmol/L (136-145); Thyroid Stimulating Hormone 1.82 uIU/mL (0.27-4.20); Vitamin B12 199 pg/mL (232-1245)
[2024-12-21 03:22] LABS: Amphetamines Screen Urine Negative (Negative); Barbiturates Screen Urine Negative (Negative); Benzodiazepines Screen Urine Negative (Negative); Cocaine Screen Urine Negative (Negative); Opiate Screen Urine Negative (Negative); PCP Screen Urine Negative (Negative); THC Screen Urine Negative (Negative)
[2024-12-21 04:29] LABS: Basophils % 0.1 %; Eosinophils % 0.1 %; Hematocrit 28.1 % (37-53); Lymphocytes # 0.3 10^3/uL (0.8-4.8); Lymphocytes % 3.3 %; Mean Corpuscular HGB Conc 30.6 g/dL (30-55); Mean Corpuscular Hemoglobin 26.6 pg (27-33); Mean Platelet Volume 9.2 fL (7.4-10.4); Monocytes # 0.2 10^3/uL (0.2-0.9); Monocytes % 1.8 %; Neutrophils # 9.69 10^3/uL (1.8-7.7); Neutrophils % 94.2 %; Nucleated Red Blood Cells % 0 %; Platelet Count 285 10^3/cmm (157-399); Red Blood Count 3.23 10^6/uL (3.85-5.65); Red Cell Distribution Width 16.4 % (12.1-15.1); White Blood Count 10.29 10^3/uL (3.29-11.43)
[2024-12-21 04:53] LABS: Anion Gap 21.4 (5-19); Blood Urea Nitrogen 15 mg/dL (8-23); Calcium 9.3 mg/dL (8.5-10.5); Carbon Dioxide 24 mmol/L (22-29); Chloride 91 mmol/L (98-107); Creatinine Clr Calc Pharmacy 49.0218; Glomerular Filtration Rate 50.2 mL/min (90-130); Glucose 120 mg/dL (65-115); Magnesium 1.7 mg/dL (1.7-2.3); Osmolality Calculated 276 mOsm/kg (285-295); Potassium 4.4 mmol/L (3.5-5.1); Sodium 132 mmol/L (136-145)
[2024-12-21 04:58] LABS: Sodium 128 mmol/L (136-145)
[2024-12-21] MEDS: oxyCODONE-APAP 5-325 mg Tablet 1 TAB PO (05:08)
[2024-12-21] MEDS: FUROsemide 40 mg Tablet PO (07:55)
[2024-12-21] MEDS: folic acid 1 mg Tablet PO (07:55)
[2024-12-21] MEDS: thiamine 100 mg Tablet PO (07:55)
[2024-12-21] MEDS: lisinopril 20 mg Tablet 40 MG PO (07:55)
[2024-12-21] MEDS: heparin 5,000 unit/mL INJ 1 mL 5000 UNIT SUBCUT ×2 (07:56→17:21)
[2024-12-21] MEDS: cyanocobalamin 1,000 mcg Tablet 1000 MCG PO (09:27)
[2024-12-21 09:37] LABS: Ferritin 36 ng/mL (30-400); Iron 21 ug/dL (59-158); Percent Saturation 4.9 % (20-50); Sodium 130 mmol/L (136-145); Total Iron Binding Capacity 427 mcg/dl; Unsaturated Iron Binding 406 ug/dL (112-347)
[2024-12-21] MEDS: methylPREDNISolone sod succ 40 mg/mL INJ 30 MG IVP (10:56)
[2024-12-21] MEDS: HYDROcodone-acetaminophen 10-325 mg Tablet 1 TAB PO (12:59)
[2024-12-21] MEDS: cefTRIAXone 1,000 mg SDV 1000 MG IVP (13:00)
[2024-12-21] MEDS: AZITHROMYCIN ADD-Vantage 500 MG in 0.9% NaCl ADD-Vantage 250 ML 250 MG IV (13:00)
[2024-12-21 14:04] LABS: Sodium 129 mmol/L (136-145)
--- NOTE | 2024-12-21 16:42 | P.PN_ITS ---
Subjective 2 Subjective: Patient was seen this morning he is alert oriented x 3, following all commands, reports persistent wheezing, shortness of breath, nonproductive cough, no lightheadedness, no dizziness Vitals/I&O/Wt Last Vital Signs Temp 98.2 F 12/21/24 11:20 Pulse 70 12/21/24 15:34 Resp 16 12/21/24 15:34 BP 114/77 12/21/24 15:34 Pulse Ox 99 12/21/24 15:34 O2 Del Method Nasal Cannula 12/21/24 15:34 O2 Flow Rate 2.5 12/21/24 05:13 12/21/24 12/21/24 12/21/24 06:59 14:59 22:59 Intake Total 444 / 444 490 / 490 Balance 444 / 444 490 / 490 Weight last 48 hrs Weight 75.041 kg Weight 74.843 kg Physical Exam 2 Const: COMMON NORMALS: no acute distress and patient oriented x3 Resp: COMMON NORMALS: normal respiratory effort, No retractions and No use of accessory muscles AUSCULTATION: crackles and wheezes Cardio: COMMON NORMALS: regular rate, regular rhythm, S1 normal heart sound present and S2 normal heart sound present RATE: regular rate RHYTHM: r egular rhythm HEART SOUNDS: S1 normal heart sound present and S2 normal heart sound present GI: COMMON NORMALS: Normal to inspection, nondistended, normoactive bowel sounds present and non-tender Extremity: COMMON NORMALS: no pedal edema Neuro: COMMON NORMALS: patient oriented x3 Psych: COMMON NORMALS: mental status grossly normal Data 12/21/24 04:23 12/21/24 13:24 A&P Assessment and plan (1) Hypertension: Qualifiers: Hypertension type: primary hypertension Qualified Code(s): I10 - Essential (primary) hypertension (2) GERD (gastroesophageal reflux disease): Qualifiers: Esophagitis presence: without esophagitis Qualified Code(s): K21.9 - Gastro-esophageal reflux disease without esophagitis (3) COPD with emphysema: Qualifiers: Emphysema type: unspecified Qualified Code(s): J43.9 - Emphysema, unspecified (4) SOB (shortness of breath): (5) Requires supplemental oxygen: (6) Smoker: (7) COPD exacerbation: Plan Acute hypoxic respiratory failure secondary to COPD exacerbation CT angiogram chest did not show evidence of pulmonary embolism Productive cough Solu-Medrol 40 mg IV every 8 hours Rocephin Azithromycin DuoNeb Hyponatremia, likely beer [place] Clinically fluid overloaded Patient drinks 6-8 beers a day Fluid restriction 1200 mL a day Grade 2 diastolic dysfunction with decompensation Continue diuresis Esophagitis with chronic anemia: Hemoglobin stable continue Protonix Internal hemorrhoid history Smoking cessation counseling Full code Cardiac diet DVT prophylaxis Plan for today, continue IV steroids increase to 40 mg IV every 8 hours add Rocephin, Zithromycin, monitor serum sodium,, IV diuresis PDMP PDMP Reviewed: Not Reviewed Attestations 2 Medical Necessity Statement*: Patient requires hospitalization for acute hypoxic respiratory failure secondary to COPD Diagnoses Primary hypertension I10 Hypertension type: primary hypertension Gastroesophageal reflux disease without esophagitis K21.9 Esophagitis presence: without esophagitis Pulmonary emphysema, unspecified emphysema type J43.9 Emphysema type: unspecified SOB (shortness of breath) R06.02 Requires supplemental oxygen Z99.81 Smoker F17.200 COPD exacerbation J44.1
[2024-12-21] MEDS: methylPREDNISolone sod succ 40 mg/mL INJ IVP (17:20)
[2024-12-22] VITALS (7 sets, daily range): BP systolic 121–150; BP diastolic 67–86; PULSE 88–101; RESP 18–24; TEMP 36.4–36.7; O2SAT 96–100
[2024-12-22] MEDS: methylPREDNISolone sod succ 40 mg/mL INJ IVP (00:52)
[2024-12-22 02:31] LABS: Basophils % 0.1 %; Hematocrit 25.3 % (37-53); Lymphocytes # 0.6 10^3/uL (0.8-4.8); Lymphocytes % 5.4 %; Mean Corpuscular HGB Conc 30.8 g/dL (30-55); Mean Corpuscular Volume 87.5 fl (82-101); Mean Platelet Volume 10.1 fL (7.4-10.4); Monocytes # 0.4 10^3/uL (0.2-0.9); Monocytes % 4.3 %; Neutrophils # 9.22 10^3/uL (1.8-7.7); Neutrophils % 89.5 %; Nucleated Red Blood Cells % 0 %; Platelet Count 249 10^3/cmm (157-399); Red Blood Count 2.89 10^6/uL (3.85-5.65); Red Cell Distribution Width 16.6 % (12.1-15.1)
[2024-12-22 02:56] LABS: Anion Gap 13.5 (5-19); Blood Urea Nitrogen 24 mg/dL (8-23); Calcium 9.1 mg/dL (8.5-10.5); Carbon Dioxide 27 mmol/L (22-29); Chloride 94 mmol/L (98-107); Creatinine Clr Calc Pharmacy 57.2572; Glucose 118 mg/dL (65-115); NT Pro B Type Natriuretic Pept 857 pg/mL (0-125); Osmolality Calculated 275 mOsm/kg (285-295); Potassium 4.5 mmol/L (3.5-5.1); Sodium 130 mmol/L (136-145)
[2024-12-22] MEDS: methylPREDNISolone sod succ 125 mg/2 mL INJ 40 MG IVP ×3 (08:36→21:10)
[2024-12-22] MEDS: HYDROcodone-acetaminophen 10-325 mg Tablet 1 TAB PO ×2 (08:37→21:13)
[2024-12-22] MEDS: lisinopril 20 mg Tablet 40 MG PO (08:37)
[2024-12-22] MEDS: folic acid 1 mg Tablet PO (08:38)
[2024-12-22] MEDS: thiamine 100 mg Tablet PO (08:38)
[2024-12-22] MEDS: FUROsemide 40 mg Tablet PO (08:38)
[2024-12-22] MEDS: cyanocobalamin 1,000 mcg Tablet 1000 MCG PO (08:38)
[2024-12-22] MEDS: sucralfate 1 gm/10 mL Oral Liq UDC PO ×2 (09:01→21:10)
[2024-12-22] MEDS: pantoprazole 40 mg SDV IVP ×2 (09:01→21:10)
--- NOTE | 2024-12-22 09:36 | PC.CHAP ---
Pastoral Care Encounter/Spiritual Assessment Type of Contact [] Declined cancer registrar visit [] Patient/Family/Request visit [] Outpatient visit [] Follow-up visit [] Physician referral [] Code/Alert [x] Routine visit [] Staff referral [] Actively dying [] Patient sleeping [] Family support [] [] Out of room [] Palliative care [] [] Receiving care in room [] Pre-surgical visit [] Trauma [] Long length of stay [] ICU visit [] Other: Relational/Emotional Strength [] Patient feels connected with others/family/visitors/staff [] Distress [] Loneliness/isolation [] Abandonment Spirituality of Patient [x] Person of Lore [] Attends Muslim of their Lore [x] Believes in Prayer [] Reads Bible or Episcopalian materials [] There are Spiritual issues to be addressed Veneer Drier Feeder Interventions [] Prayer [x] Active listening [] Non-anxious presence [] Spiritual/emotional support [] Crisis/trauma care [] Spiritual counseling [] Bereavement support [] Provided bereavement packet [] Provided Bible/devotional materials [] Provided toy/stuffed animal, coloring book to patient or family member [] Provided Communion [] Anointing/[place] [] Salvation [x] Completed spiritual assessment [] Other: Impact on Illness or Injury [] Angry [] Fearful [] Anxious [] Often cries [] Exhaustion [] Unable to work [] Unable to attend confucianism [] Unable to walk/stand [] Unable to read [] Unable to drive [] Unable to eat/drink [] Unable to sleep [] Unable to be with family [] Patient intubated [] Other: Summary Time spent with patient 5 min
[2024-12-22] MEDS: AZITHROMYCIN ADD-Vantage 500 MG in 0.9% NaCl ADD-Vantage 250 ML 250 MG IV (11:10)
[2024-12-22] MEDS: cefTRIAXone 1,000 mg SDV 1000 MG IVP (11:11)
[2024-12-22 13:41] LABS: Hematocrit 25.4 % (37-53)
--- NOTE | 2024-12-22 18:35 | P.PN_ITS ---
Subjective 2 Subjective: Patient was seen this morning, does report weakness, fatigue, persistent wheezing Vitals/I&O/Wt Last Vital Signs Temp 98.0 F 12/22/24 15:44 Pulse 92 12/22/24 15:44 Resp 19 H 12/22/24 15:44 BP 137/80 12/22/24 15:44 Pulse Ox 98 12/22/24 15:44 O2 Del Method Nasal Cannula 12/22/24 15:44 O2 Flow Rate 2 12/22/24 12:21 12/22/24 12/22/24 12/22/24 06:59 14:59 22:59 Intake Total 370 / 370 480 / 850 Balance 370 / 370 480 / 850 Weight last 48 hrs Weight 76.204 kg Weight 75.041 kg Weight 74.843 kg Physical Exam 2 Const: COMMON NORMALS: no acute distress and patient oriented x3 Resp: COMMON NORMALS: normal respiratory effort, No retractions and No use of accessory muscles AUSCULTATION: wheezes Cardio: COMMON NORMALS: regular rate, regular rhythm, S1 normal heart sound present and S2 normal heart sound present RATE: regular rate RHYTHM: r egular rhythm HEART SOUNDS: S1 normal heart sound present and S2 normal heart sound present GI: COMMON NORMALS: Normal to inspection, nondistended, normoactive bowel sounds present and non-tender Extremity: COMMON NORMALS: no pedal edema Neuro: COMMON NORMALS: patient oriented x3 Psych: COMMON NORMALS: mental status grossly normal Data 12/22/24 13:36 12/22/24 01:35 A&P Assessment and plan (1) Hypertension: Qualifiers: Hypertension type: primary hypertension Qualified Code(s): I10 - Essential (primary) hypertension (2) GERD (gastroesophageal reflux disease): Qualifiers: Esophagitis presence: without esophagitis Qualified Code(s): K21.9 - Gastro-esophageal reflux disease without esophagitis (3) COPD with emphysema: Qualifiers: Emphysema type: unspecified Qualified Code(s): J43.9 - Emphysema, unspecified (4) SOB (shortness of breath): (5) Requires supplemental oxygen: (6) Smoker: (7) COPD exacerbation: Plan Acute hypoxic respiratory failure secondary to COPD exacerbation CT angiogram chest did not show evidence of pulmonary embolism Productive cough Solu-Medrol 40 mg IV every 8 hours Rocephin Azithromycin DuoNeb Hyponatremia, likely beer Potomania Clinically fluid overloaded Patient drinks 6-8 beers a day Fluid restriction 1200 mL a day Grade 2 diastolic dysfunction with decompensation Continue diuresis Esophagitis with chronic anemia: Hemoglobin stable continue Protonix Internal hemorrhoid history Smoking cessation counseling Full code Cardiac diet DVT prophylaxis Plan for today, continue IV steroids, Rocephin, Zithromycin, monitor serum sodium,, IV diuresis on hold PDMP PDMP Reviewed: Not Reviewed Attestations 2 Medical Necessity Statement*: Patient requires hospitalization for acute hypoxic respiratory failure secondary to COPD Diagnoses Primary hypertension I10 Hypertension type: primary hypertension Gastroesophageal reflux disease without esophagitis K21.9 Esophagitis presence: without esophagitis Pulmonary emphysema, unspecified emphysema type J43.9 Emphysema type: unspecified SOB (shortness of breath) R06.02 Requires supplemental oxygen Z99.81 Smoker F17.200 COPD exacerbation J44.1
[2024-12-23] VITALS (12 sets, daily range): BP systolic 137–171; BP diastolic 66–96; PULSE 76–104; RESP 16–20; TEMP 36.4–36.8; O2SAT 97–100
[2024-12-23 04:12] LABS: Basophils % 0.1 %; Eosinophils % 0.1 %; Hematocrit 25.5 % (37-53); Lymphocytes # 0.4 10^3/uL (0.8-4.8); Lymphocytes % 4.6 %; Mean Corpuscular HGB Conc 29.4 g/dL (30-55); Mean Corpuscular Volume 88.2 fl (82-101); Mean Platelet Volume 9.5 fL (7.4-10.4); Monocytes # 0.7 10^3/uL (0.2-0.9); Monocytes % 7.8 %; Neutrophils # 8.16 10^3/uL (1.8-7.7); Neutrophils % 86.7 %; Nucleated Red Blood Cells % 0 %; Platelet Count 276 10^3/cmm (157-399); Red Blood Count 2.89 10^6/uL (3.85-5.65); Red Cell Distribution Width 16.4 % (12.1-15.1); White Blood Count 9.41 10^3/uL (3.29-11.43)
[2024-12-23 04:47] LABS: Anion Gap 15.5 (5-19); Blood Urea Nitrogen 23 mg/dL (8-23); Calcium 8.7 mg/dL (8.5-10.5); Carbon Dioxide 27 mmol/L (22-29); Chloride 95 mmol/L (98-107); Creatinine Clr Calc Pharmacy 69.1674; Glomerular Filtration Rate 74.1 mL/min (90-130); Glucose 120 mg/dL (65-115); NT Pro B Type Natriuretic Pept 893 pg/mL (0-125); Osmolality Calculated 281 mOsm/kg (285-295); Potassium 4.5 mmol/L (3.5-5.1); Sodium 133 mmol/L (136-145)
[2024-12-23] MEDS: sucralfate 1 gm/10 mL Oral Liq UDC PO ×2 (07:52→19:59)
[2024-12-23] MEDS: cyanocobalamin 1,000 mcg Tablet 1000 MCG PO (07:52)
[2024-12-23] MEDS: thiamine 100 mg Tablet PO (07:52)
[2024-12-23] MEDS: pantoprazole 40 mg SDV IVP ×2 (07:52→19:59)
[2024-12-23] MEDS: lisinopril 20 mg Tablet 40 MG PO (07:52)
[2024-12-23] MEDS: folic acid 1 mg Tablet PO (07:52)
[2024-12-23] MEDS: FUROsemide 40 mg Tablet PO (07:52)
[2024-12-23] MEDS: methylPREDNISolone sod succ 125 mg/2 mL INJ 40 MG IVP ×2 (07:52→14:12)
[2024-12-23] MEDS: HYDROcodone-acetaminophen 10-325 mg Tablet 1 TAB PO ×2 (07:56→20:03)
[2024-12-23] MEDS: AZITHROMYCIN ADD-Vantage 500 MG in 0.9% NaCl ADD-Vantage 250 ML 250 MG IV (12:58)
[2024-12-23] MEDS: cefTRIAXone 1,000 mg SDV 1000 MG IVP (12:58)
--- NOTE | 2024-12-23 17:01 | P.PN_ITS ---
Subjective 2 Subjective: Patient was seen this morning, he is alert oriented x 3, following all commands, continues to complain of wheezing, no chest pain, no palpitations we discussed his hemoglobin is 7.5, he denies any bloody or black stools, plan on transfusing 1 unit PRBC, we did discuss the possibility of doing an EGD however as he continues to have shortness of breath and wheezing we will hold off until he is more stable or consider outpatient EGD based on his hemoglobin trend, he voiced understanding, all questions answered Vitals/I&O/Wt Last Vital Signs Temp 98.1 F 12/23/24 15:34 Pulse 99 12/23/24 15:34 Resp 16 12/23/24 15:34 BP 145/76 12/23/24 15:34 Pulse Ox 97 12/23/24 15:34 O2 Del Method Nasal Cannula 12/23/24 15:34 O2 Flow Rate 2 12/23/24 08:52 12/23/24 12/23/24 12/23/24 06:59 14:59 22:59 Intake Total 480 / 1450 480 / 480 Balance 480 / 1450 480 / 480 Weight last 48 hrs Weight 77.111 kg Weight 76.204 kg Physical Exam 2 Const: COMMON NORMALS: no acute distress and patient oriented x3 Resp: COMMON NORMALS: normal respiratory effort, No retractions, No use of accessory muscles and clear to auscultation bilaterally AUSCULTATION: clear to auscultation bilaterally Cardio: COMMON NORMALS: regular rate, regular rhythm, S1 normal heart sound present and S2 normal heart sound present RATE: regular rate RHYTHM: r egular rhythm HEART SOUNDS: S1 normal heart sound present and S2 normal heart sound present GI: COMMON NORMALS: Normal to inspection, nondistended, normoactive bowel sounds present and non-tender Extremity: COMMON NORMALS: no pedal edema Neuro: COMMON NORMALS: patient oriented x3 Psych: COMMON NORMALS: mental status grossly normal Data 12/23/24 03:36 12/23/24 03:36 Micro: Microbiology 12/23/24 09:35 Occult Blood (FIT) - Final Stool Routine Collection A&P Assessment and plan (1) Hypertension: Qualifiers: Hypertension type: primary hypertension Qualified Code(s): I10 - Essential (primary) hypertension (2) GERD (gastroesophageal reflux disease): Qualifiers: Esophagitis presence: without esophagitis Qualified Code(s): K21.9 - Gastro-esophageal reflux disease without esophagitis (3) COPD with emphysema: Qualifiers: Emphysema type: unspecified Qualified Code(s): J43.9 - Emphysema, unspecified (4) SOB (shortness of breath): (5) Requires supplemental oxygen: (6) Smoker: (7) COPD exacerbation: Plan Acute hypoxic respiratory failure secondary to COPD exacerbation CT angiogram chest did not show evidence of pulmonary embolism Productive cough Solu-Medrol 40 mg IV every 8 hours Rocephin Azithromycin DuoNeb Hyponatremia, likely beer Potomania, resolving Clinically fluid overloaded Patient drinks 6-8 beers a day Fluid restriction 1200 mL a day Grade 2 diastolic dysfunction with decompensation Continue diuresis Esophagitis with chronic anemia: Hemoglobin stable continue Protonix Acute on chronic anemia ? Hemoglobin 7.5 transfuse 1 unit PRBC ? Protonix, Carafate Internal hemorrhoid history Smoking cessation counseling Full code Cardiac diet DVT prophylaxis Plan for today, continue IV steroids, Rocephin, Zithromycin, monitor serum sodium, 1 unit PRBC, IV Lasix PDMP PDMP Reviewed: Not Reviewed Attestations 2 Medical Necessity Statement*: Patient requires hospitalization for acute on chronic anemia, acute hypoxic respiratory failure Diagnoses Primary hypertension I10 Hypertension type: primary hypertension Gastroesophageal reflux disease without esophagitis K21.9 Esophagitis presence: without esophagitis Pulmonary emphysema, unspecified emphysema type J43.9 Emphysema type: unspecified SOB (shortness of breath) R06.02 Requires supplemental oxygen Z99.81 Smoker F17.200 COPD exacerbation J44.1
[2024-12-24] VITALS (10 sets, daily range): BP systolic 125–181; BP diastolic 77–90; PULSE 76–127; RESP 15–18; TEMP 36.4–36.8; O2SAT 92–100
[2024-12-24] MEDS: hyDRALAzine 20 mg/mL INJ 1 mL 10 MG IVP (02:07)
[2024-12-24 05:00] LABS: Basophils % 0.1 %; Lymphocytes # 0.5 10^3/uL (0.8-4.8); Lymphocytes % 6.6 %; Mean Corpuscular HGB Conc 30.3 g/dL (30-55); Mean Corpuscular Hemoglobin 26.8 pg (27-33); Mean Corpuscular Volume 88.5 fl (82-101); Mean Platelet Volume 9.3 fL (7.4-10.4); Monocytes % 12.3 %; Neutrophils # 6.45 10^3/uL (1.8-7.7); Neutrophils % 80.5 %; Nucleated Red Blood Cells % 0 %; Platelet Count 281 10^3/cmm (157-399); Red Blood Count 3.39 10^6/uL (3.85-5.65); Red Cell Distribution Width 16.3 % (12.1-15.1); White Blood Count 8.02 10^3/uL (3.29-11.43)
[2024-12-24] MEDS: methylPREDNISolone sod succ 125 mg/2 mL INJ 40 MG IVP (05:20)
[2024-12-24 05:28] LABS: Anion Gap 14.7 (5-19); Blood Urea Nitrogen 20 mg/dL (8-23); Calcium 8.7 mg/dL (8.5-10.5); Carbon Dioxide 29 mmol/L (22-29); Chloride 99 mmol/L (98-107); Creatinine Clr Calc Pharmacy 77.5881; Glomerular Filtration Rate 83.7 mL/min (90-130); Glucose 110 mg/dL (65-115); NT Pro B Type Natriuretic Pept 738 pg/mL (0-125); Osmolality Calculated 291 mOsm/kg (285-295); Potassium 3.7 mmol/L (3.5-5.1); Sodium 139 mmol/L (136-145)
[2024-12-24] MEDS: pantoprazole 40 mg SDV IVP ×2 (08:58→22:21)
[2024-12-24] MEDS: folic acid 1 mg Tablet PO (08:58)
[2024-12-24] MEDS: lisinopril 20 mg Tablet 40 MG PO (08:58)
[2024-12-24] MEDS: FUROsemide 40 mg Tablet PO ×2 (08:58→17:14)
[2024-12-24] MEDS: cyanocobalamin 1,000 mcg Tablet 1000 MCG PO (08:58)
[2024-12-24] MEDS: sucralfate 1 gm/10 mL Oral Liq UDC PO ×2 (08:58→22:21)
[2024-12-24] MEDS: thiamine 100 mg Tablet PO (08:59)
[2024-12-24] MEDS: AZITHROMYCIN ADD-Vantage 500 MG in 0.9% NaCl ADD-Vantage 250 ML 250 MG IV (13:33)
[2024-12-24] MEDS: cefTRIAXone 1,000 mg SDV 1000 MG IVP (13:34)
[2024-12-24] MEDS: methylPREDNISolone sod succ 40 mg SDV IVP (13:34)
[2024-12-24] MEDS: ipratropium-albuterol 3 mL Neb INHALATION ×2 (13:49→20:03)
[2024-12-24] MEDS: HYDROcodone-acetaminophen 10-325 mg Tablet 1 TAB PO (15:04)
--- NOTE | 2024-12-24 15:15 | P.PN_ITS ---
Subjective 2 Subjective: Patient was seen this morning continues to complain of wheezing, but overall improved compared to yesterday, no fevers, no chills discussed increasing his dose of Lasix, he is agreeable Vitals/I&O/Wt Last Vital Signs Temp 98.3 F 12/24/24 11:05 Pulse 76 12/24/24 13:51 Resp 16 12/24/24 13:51 BP 165/77 12/24/24 11:05 Pulse Ox 96 12/24/24 13:51 O2 Del Method Room Air 12/24/24 13:51 O2 Flow Rate 2 12/24/24 11:05 12/24/24 12/24/24 12/24/24 06:59 14:59 22:59 Intake Total 0 / 1080 480 / 480 Balance 0 / 1080 480 / 480 Weight last 48 hrs Weight 77.882 kg Weight 77.111 kg Physical Exam 2 Const: COMMON NORMALS: no acute distress and patient oriented x3 Resp: COMMON NORMALS: normal respiratory effort, No retractions and No use of accessory muscles AUSCULTATION: crackles and wheezes Cardio: COMMON NORMALS: regular rate, regular rhythm, S1 normal heart sound present and S2 normal heart sound present RATE: regular rate RHYTHM: r egular rhythm HEART SOUNDS: S1 normal heart sound present and S2 normal heart sound present GI: COMMON NORMALS: Normal to inspection, nondistended, normoactive bowel sounds present and non-tender Extremity: COMMON NORMALS: no pedal edema Neuro: COMMON NORMALS: patient oriented x3 Psych: COMMON NORMALS: mental status grossly normal Data 12/24/24 03:43 12/24/24 03:43 Micro: Microbiology 12/23/24 09:35 Occult Blood (FIT) - Final Stool Routine Collection A&P Assessment and plan (1) Hypertension: Qualifiers: Hypertension type: primary hypertension Qualified Code(s): I10 - Essential (primary) hypertension (2) GERD (gastroesophageal reflux disease): Qualifiers: Esophagitis presence: without esophagitis Qualified Code(s): K21.9 - Gastro-esophageal reflux disease without esophagitis (3) COPD with emphysema: Qualifiers: Emphysema type: unspecified Qualified Code(s): J43.9 - Emphysema, unspecified (4) SOB (shortness of breath): (5) Requires supplemental oxygen: (6) Smoker: (7) COPD exacerbation: Plan Acute hypoxic respiratory failure secondary to COPD exacerbation CT angiogram chest did not show evidence of pulmonary embolism Productive cough Solu-Medrol 40 mg IV every 8 hours, de-escalate to prednisone Rocephin Azithromycin DuoNeb Hyponatremia, likely beer Potomania, resolving Clinically fluid overloaded Patient drinks 6-8 beers a day Fluid restriction 1200 mL a day Grade 2 diastolic dysfunction with decompensation Continue diuresis Esophagitis with chronic anemia: Hemoglobin stable continue Protonix Acute on chronic anemia ? Hemoglobin 7.5 transfuse 1 unit PRBC, hemoglobin 9.1 ? Protonix, Carafate Internal hemorrhoid history Smoking cessation counseling Full code Cardiac diet DVT prophylaxis Plan for today, continue IV steroids, Rocephin, Zithromycin, monitor serum sodium, 2 doses of Lasix PDMP PDMP Reviewed: Not Reviewed Attestations 2 Medical Necessity Statement*: Patient requires hospitalization acute respiratory failure secondary COPD, acute on chronic anemia, chf Diagnoses Primary hypertension I10 Hypertension type: primary hypertension Gastroesophageal reflux disease without esophagitis K21.9 Esophagitis presence: without esophagitis Pulmonary emphysema, unspecified emphysema type J43.9 Emphysema type: unspecified SOB (shortness of breath) R06.02 Requires supplemental oxygen Z99.81 Smoker F17.200 COPD exacerbation J44.1
--- NOTE | 2024-12-24 16:28 | PC.NURSE ---
martial arts instructor observed Yohana student nurse insert PIV to pt's right forearm. Pt tolerated well.
--- NOTE | 2024-12-24 17:07 | ECG_ITS ---
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 Measurements Intervals [place] Rate: 115 P: 62 DC: 131 QRS: 53 QRSD: 97 T: 28 QT: 315 QTc: 437 Interpretive Statements SINUS TACHYCARDIA Compared to ECG 12/20/2024 23:40:34 Sinus rhythm no longer present Electronically Signed On 12-27-2024 08:02:14 INTERNATIONAL TRADE MANAGER by Jeff English M.D. [email or web address]
[2024-12-24] MEDS: chlorthalidone 25 mg Tablet PO (17:13)
[2024-12-24 19:30] LABS: Troponin(5th) Baseline 25 ng/L (0-15)
--- NOTE | 2024-12-24 19:43 | ECG_ITS ---
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 Measurements Intervals [place] Rate: 101 P: 63 [place]: 129 QRS: 41 QRSD: 85 T: 29 QT: 324 QTc: 421 Interpretive Statements SINUS TACHYCARDIA Compared to ECG 12/24/2024 17:37:36 No significant changes Electronically Signed On 12-27-2024 08:25:07 BLOWN FILM EXTRUSION OPERATOR by Jeff English M.D. [email or web address]
[2024-12-24 21:32] LABS: Troponin 5 2HR 25.83 ng/L (0-15); Troponin 5 2HR Delta 0.83 ABS# (0-10)
--- NOTE | 2024-12-24 23:40 | ECG_ITS ---
[facility] Test Date: 2024-12-24 Pat Name: Moisés Mann Department: Room: 250 Gender: Male Postie: : 1955 Requested By: Alex Roberts Order Number: [id number] Mo MD: Jeff English M.D. Measurements Intervals [place] Rate: 107 P: 61 [place]: 134 QRS: 53 QRSD: 85 T: 42 QT: 328 QTc: 439 Interpretive Statements SINUS TACHYCARDIA WITH OCCASIONAL SUPRAVENTRICULAR PREMATURE COMPLEXES MINIMAL ST DEPRESSION [0.025+ mV ST DEPRESSION] Compared to ECG 12/24/2024 20:11:56 ST (T wave) deviation now present Electronically Signed On 12-27-2024 08:24:55 PRODUCT SAFETY COMPLIANCE LEADER by Jeff English M.D. [email or web address]
[2024-12-25] VITALS: BP 151/83; PULSE 107; RESP 17; TEMP 36.8; O2SAT 92
[2024-12-25 01:24] LABS: Troponin 5 6HR 27.07 ng/L (0-15); Troponin 5 6HR Delta 2.07 ng/L (0-12)
[2024-12-25 02:52] LABS: Eosinophils % 0.1 %; Hematocrit 29.2 % (37-53); Lymphocytes # 0.7 10^3/uL (0.8-4.8); Lymphocytes % 9.6 %; Mean Corpuscular HGB Conc 30.8 g/dL (30-55); Mean Corpuscular Hemoglobin 26.6 pg (27-33); Mean Corpuscular Volume 86.4 fl (82-101); Mean Platelet Volume 9.6 fL (7.4-10.4); Monocytes % 13.1 %; Neutrophils # 5.73 10^3/uL (1.8-7.7); Neutrophils % 76.5 %; Nucleated Red Blood Cells % 0 %; Platelet Count 295 10^3/cmm (157-399); Red Blood Count 3.38 10^6/uL (3.85-5.65); Red Cell Distribution Width 16.2 % (12.1-15.1); White Blood Count 7.49 10^3/uL (3.29-11.43)
[2024-12-25 03:25] LABS: Anion Gap 15.3 (5-19); Blood Urea Nitrogen 25 mg/dL (8-23); Calcium 9.1 mg/dL (8.5-10.5); Carbon Dioxide 31 mmol/L (22-29); Chloride 93 mmol/L (98-107); Creatinine Clr Calc Pharmacy 58.1911; Glucose 124 mg/dL (65-115); NT Pro B Type Natriuretic Pept 937 pg/mL (0-125); Osmolality Calculated 288 mOsm/kg (285-295); Potassium 3.3 mmol/L (3.5-5.1); Sodium 136 mmol/L (136-145)
[2024-12-25 03:28] VITALS: BP 108/68; PULSE 100; RESP 17; TEMP 36.6; O2SAT 90
[2024-12-25] MEDS: ipratropium-albuterol 3 mL Neb INHALATION (08:13)
[2024-12-25 08:14] VITALS: PULSE 89; RESP 18; O2SAT 97
[2024-12-25 08:19] VITALS: BP 182/86; PULSE 102; RESP 16; TEMP 36.6; O2SAT 93
[2024-12-25] MEDS: folic acid 1 mg Tablet PO (08:32)
[2024-12-25] MEDS: cyanocobalamin 1,000 mcg Tablet 1000 MCG PO (08:32)
[2024-12-25] MEDS: chlorthalidone 25 mg Tablet PO (08:33)
[2024-12-25] MEDS: thiamine 100 mg Tablet PO (08:33)
[2024-12-25] MEDS: sucralfate 1 gm/10 mL Oral Liq UDC PO (08:33)
[2024-12-25] MEDS: FUROsemide 40 mg Tablet PO (08:33)
[2024-12-25] MEDS: predniSONE 20 mg Tablet 40 MG PO (08:33)
[2024-12-25] MEDS: pantoprazole 40 mg SDV IVP (08:35)
[2024-12-25] MEDS: lisinopril 20 mg Tablet 40 MG PO (08:39)
[2024-12-25 11:02] VITALS: BP 118/85; PULSE 125; RESP 20; TEMP 36.7; O2SAT 94
--- NOTE | 2024-12-25 13:12 | PM.DCS ---
Discharge Providers Date of Admission: 12/21/24 01:07 Date of Discharge: December 25, 2024 Attending Provider at Admission: Asher Bahena MD Attending Provider at Discharge: Alex Roberts MD Primary Care Provider: Osiris Quispe NP Diagnoses at Discharge Discharge Diagnosis (1) Hypertension: Status: Acute Qualifiers: Hypertension type: primary hypertension Qualified Code(s): I10 - Essential (primary) hypertension (2) GERD (gastroesophageal reflux disease): Status: Acute Qualifiers: Esophagitis presence: without esophagitis Qualified Code(s): K21.9 - Gastro-esophageal reflux disease without esophagitis (3) COPD with emphysema: Status: Acute Qualifiers: Emphysema type: unspecified Qualified Code(s): J43.9 - Emphysema, unspecified (4) SOB (shortness of breath): Status: Acute (5) Requires supplemental oxygen: Status: Acute (6) Smoker: Status: Acute (7) COPD exacerbation: Status: Acute Reason for Visit Reason for Visit: sob Hospital Course Hospital Course This is a 69-year-old male with a past medical history of COPD, hypertension, who presents to [facility] for shortness of breath For COPD exacerbation, concern for underlying pneumonia, patient received IV steroids, broad-spectrum antibiotic therapy, overall clinically improved, will be discharged on oxygen therapy, steroid burst, azithromycin with a close follow-up with primary care as outpatient. Follow-up with pulmonary in 1 month. Patient's hospitalization was complicated with acute on chronic anemia, no bloody black stools reported, no hemodynamic compromise, required 1 unit PRBC during his hospitalization. Advised patient to stop naproxen on discharge. Continue Protonix, Carafate, if he were to have any blood or black stool to immediately go to emergency room. Follow-up with general surgery in 1 month for consideration EGD and colonoscopy Patient had hyponatremia during this hospitalization, likely secondary to alcohol consumption, serum sodium on discharge 136 Patient was advised to abstain from smoking on discharge, detailed discussion with morbidity and mortality discussion Physical Exam Const: COMMON NORMALS: no acute distress and patient oriented x3 Resp: COMMON NORMALS: normal respiratory effort, No retractions, No use of accessory muscles and clear to auscultation bilaterally AUSCULTATION: clear to auscultation bilaterally Cardio: COMMON NORMALS: regular rate, regular rhythm, S1 normal heart sound present and S2 normal heart sound present RATE: regular rate RHYTHM: regular rhythm HEART SOUNDS: S1 normal heart sound present and S2 normal heart sound present GI: COMMON NORMALS: Normal to inspection, nondistended, normoactive bowel sounds present and non-tender Extremity: COMMON NORMALS: no pedal edema Neuro: COMMON NORMALS: patient oriented x3 Psych: COMMON NORMALS: mental status grossly normal Discharge Data Studies Completed and Pending Completed Studies During Hospitalization Category Date Time Status CT angio chest PE protcl [id number] Urgent Cat Scan 12/20/24 23:36 Completed XR chest 1V portable [id number] Stat Exams 12/20/24 21:38 Completed Pending at discharge Category Date Time Status Basic Metabolic Panel AM LABS Lab 12/26/24 04:00 Ordered Basic Metabolic Panel AM LABS Lab 12/27/24 04:00 Ordered C Reactive Protein AM LABS Lab 12/26/24 04:00 Ordered C Reactive Protein AM LABS Lab 12/27/24 04:00 Ordered Complete Blood Count w/Auto AM LABS Lab 12/26/24 04:00 Ordered Complete Blood Count w/Auto AM LABS Lab 12/27/24 04:00 Ordered NT Pro B Type Natriuretic Pept QAM Lab 12/26/24 06:00 Ordered NT Pro B Type Natriuretic Pept QAM Lab 12/27/24 06:00 Ordered Occult Blood Stool [Immunochemical Fecal OCB] Routine Lab 12/21/24 08:28 Uncollected Radiology Impressions Chest X-Ray 12/20/24 21:38 IMPRESSION: No acute chest findings. Chest CTA 12/20/24 23:36 IMPRESSION: 1. No pulmonary embolism. 2. Bronchitis with no consolidation to suggest pneumonia. 3. Small left pleural effusion. COMMENTS: The presence of pulmonary emphysema on CT is an independent risk factor for lung cancer. In the absence of a history or active diagnosis of lung cancer, it is recommended that this patient with emphysema be evaluated for enrollment in a low dose CT lung cancer screening program. Laboratory Results WBC 7.49 10^3/uL (3.29-11.43) 12/25/24 02:00 RBC 3.38 10^6/uL (3.85-5.65) L 12/25/24 02:00 Hgb 9.00 g/dL (11.27-16.99) L 12/25/24 02:00 Hct 29.2 % (37-53) L 12/25/24 02:00 MCV 86.4 fl (82-101) 12/25/24 02:00 MCH 26.6 pg (27-33) L 12/25/24 02:00 MCHC 30.8 g/dL (30-55) 12/25/24 02:00 RDW 16.2 % (12.1-15.1) H 12/25/24 02:00 Plt Count 295 10^3/cmm (157-399) 12/25/24 02:00 MPV 9.6 fL (7.4-10.4) 12/25/24 02:00 Neut % (Auto) 76.5 % 12/25/24 02:00 Lymph % (Auto) 9.6 % 12/25/24 02:00 Gray % (Auto) 13.1 % 12/25/24 02:00 Eos % (Auto) 0.1 % 12/25/24 02:00 Baso % (Auto) 0.0 % 12/25/24 02:00 Neut # (Auto) 5.73 10^3/uL (1.8-7.7) 12/25/24 02:00 Lymph # (Auto) 0.7 10^3/uL (0.8-4.8) L 12/25/24 02:00 Gray # (Auto) 1.0 10^3/uL (0.2-0.9) H 12/25/24 02:00 Eos # (Auto) 0.0 10^3/uL (0.0-0.8) 12/25/24 02:00 Baso # (Auto) 0.0 10^3/uL (0.0-0.1) 12/25/24 02:00 Nucleated RBC % (auto) 0 % 12/25/24 02:00 Nucleated RBCs # 0.0 /100WBC 12/25/24 02:00 Specimen Type Arterial 12/21/24 00:01 Sample Site Brachial, right 12/21/24 00:01 ABG pH 7.42 (7.35-7.45) 12/21/24 00:01 ABG pCO2 37.9 mmHg (35-45) 12/21/24 00:01 ABG pO2 94.3 mmHg (80.0-100.0) 12/21/24 00:01 ABG HCO3 24.4 mmol/L (22-26) 12/21/24 00:01 ABG O2 Saturation 97.8 12/21/24 00:01 ABG Base Excess -0.1 mmol/L (-2.0-2.0) 12/21/24 00:01 Maurice Test N/a 12/21/24 00:01 A-a O2 Gradient 1.1 mmHg (5-10) L 12/21/24 00:01 Hematocrit 26.4 % (42-52) L 12/21/24 00:01 Hgb O2 Saturation 95.8 % (95-100) 12/21/24 00:01 Carboxyhemoglobin 1.4 %THgb (0.4-20.1) 12/21/24 00:01 Methemoglobin 0.7 % (0.4-1.5) 12/21/24 00:01 Total Hemoglobin 8.6 g/dL (14-18) L 12/21/24 00:01 Sodium 126.0 mmol/L (131-143) L 12/21/24 00:01 Potassium 4.2 mmol/L (3.5-5.0) 12/21/24 00:01 Glucose 84.0 mg/dL (70-115) 12/21/24 00:01 Ionized Calcium 1.2 mmol/L (1.1-1.4) 12/21/24 00:01 O2 Delivery Device Nc 12/21/24 00:01 O2 Liters/Min 2.0 % 12/21/24 00:01 Dog [employer] ID Nikos 12/21/24 00:01 Sodium 136 mmol/L (136-145) 12/25/24 02:00 Potassium 3.3 mmol/L (3.5-5.1) L 12/25/24 02:00 Chloride 93 mmol/L (98-107) L 12/25/24 02:00 Carbon Dioxide 31 mmol/L (22-29) H 12/25/24 02:00 Anion Gap 15.3 (5-19) 12/25/24 02:00 BUN 25 mg/dL (8-23) H 12/25/24 02:00 Creatinine 1.2 mg/dL (0.7-1.2) 12/25/24 02:00 GFR Calculation 60.0 mL/min (90-130) L 12/25/24 02:00 Glucose 124 mg/dL (65-115) H 12/25/24 02:00 Calculated Osmolality 288 mOsm/kg (285-295) 12/25/24 02:00 Lactic Acid 1.4 mmol/L (0.5-2.2) 12/20/24 22:05 Calcium 9.1 mg/dL (8.5-10.5) 12/25/24 02:00 Magnesium 1.7 mg/dL (1.7-2.3) 12/21/24 04:23 Iron 21 ug/dL (59-158) L 12/21/24 08:46 TIBC 427 mcg/dl 12/21/24 08:46 % Saturation 4.9 % (20-50) L 12/21/24 08:46 Unsat Iron Binding 406 ug/dL (112-347) H 12/21/24 08:46 Ferritin 36 ng/mL (30-400) 12/21/24 08:46 Total Bilirubin 0.4 mg/dL (0.15-1.2) 12/20/24 22:05 AST 19 U/L (0-40) 12/20/24 22:05 ALT 13 U/L (0-41) 12/20/24 22:05 Alkaline Phosphatase 62 U/L (40-130) 12/20/24 22:05 Troponin T Baseline 25 ng/L (0-15) H 12/24/24 18:40 Troponin T 120 Minute 25.83 ng/L (0-15) H 12/24/24 20:45 Delta Troponin T 0.83 ABS# (0-10) 12/24/24 20:45 Troponin T Hi Sens 6Hr 27.07 ng/L (0-15) H 12/25/24 00:45 Troponin T Hi Sens 6Hr Delta 2.07 ng/L (0-12) 12/25/24 00:45 C-Reactive Protein 3.0 mg/L (0.0-4.9) 12/25/24 02:00 NT-Pro-B Natriuret Pep 937 pg/mL (0-125) H 12/25/24 02:00 Total Protein 6.5 g/dL (6.6-8.7) L 12/20/24 22:05 Albumin 3.6 g/dL (3.5-5.2) 12/20/24 22:05 Globulin 2.9 g/dL (1.3-4.6) 12/20/24 22:05 Vitamin B12 199 pg/mL (232-1245) L 12/21/24 01:23 TSH 1.82 uIU/mL (0.27-4.20) 12/21/24 01:23 Urine Opiates Screen Negative ng/mL (Negative) 12/21/24 03:08 Ur Barbiturates Screen Negative ng/mL (Negative) 12/21/24 03:08 Ur Phencyclidine Scrn Negative ng/mL (Negative) 12/21/24 03:08 Ur Amphetamines Screen Negative ng/mL (Negative) 12/21/24 03:08 U Benzodiazepines Scrn Negative ng/mL (Negative) 12/21/24 03:08 Urine Cocaine Screen Negative ng/mL (Negative) 12/21/24 03:08 U Marijuana (THC) Screen Negative ng/mL (Negative) 12/21/24 03:08 Ethyl Alcohol < 10 mg/dL (0-10) 12/20/24 22:05 Influenza A (PCR) Negative (Negative) 12/20/24 21:22 Influenza Type B (PCR) Negative (Negative) 12/20/24 21:22 RSV (PCR) Negative (Negative) 12/20/24 21:22 SARS-CoV-2 (PCR) Negative (Negative) 12/20/24 21:22 Blood Type O Positive 12/23/24 08:35 Rho(D) Type Rh positive 12/23/24 08:35 Antibody Screen Negative 12/23/24 08:35 Crossmatch See Detail 12/23/24 08:35 Vitals Last Vital Signs Temp 98.0 F 12/25/24 11:02 Pulse 125 H 12/25/24 11:02 Resp 20 H 12/25/24 11:02 BP 118/85 12/25/24 11:02 Pulse Ox 94 12/25/24 11:02 O2 Del Method Room Air 12/25/24 11:02 O2 Flow Rate 2 12/24/24 11:05 Discharge Plan Discharge Patient Disposition: Home Condition: Stable Prescriptions: New folic acid 1 mg Tablet 1 mg PO DAILY 30 Days Qty: 30 0RF cyanocobalamin (vitamin B-12) [Vitamin B-12] 1,000 mcg Tablet 1,000 mcg PO DAILY 30 Days Qty: 30 0RF azithromycin 250 mg Tablet 250 mg PO Q24H 3 Days Qty: 3 0RF sucralfate [Carafate] 1 gram tablet 1 g PO BID 28 Days Qty: 56 0RF furosemide 40 mg Tablet 40 mg PO DAILY 30 Days Qty: 30 0RF thiamine mononitrate (vit B1) [Vitamin B-1 (mononitrate)] 100 mg Tablet 100 mg PO DAILY 30 Days Qty: 30 0RF prednisone 20 mg Tablet 40 mg PO DAILY 5 Days Qty: 10 0RF Continued lisinopril 40 mg tablet 40 mg PO DAILY ipratropium-albuterol 0.5 mg-3 mg(2.5 mg base)/3 mL solution for nebulization 3 ml inhalation QID PRN (Reason: Shortness Of Breath Or Wheezing) fluticasone propionate [Allergy Relief (fluticasone)] 50 mcg/actuation spray,suspension 1 spray intranasal BID PRN (Reason: Allergy Symptoms) Rx Instructions: administer into each nostril pantoprazole 40 mg tablet,delayed release (DR/EC) 40 mg PO BID 42 Days Qty: 84 1RF albuterol sulfate 90 mcg/actuation HFA aerosol inhaler 2 puff inhalation Q6H PRN (Reason: Shortness Of Breath Or Wheezing) Breztri Aerosphere 160-9-4.8 mcg/actuation HFA aerosol inhaler 2 inh inhalation BID Qty: 10.7 6RF amlodipine 5 mg tablet 5 mg PO BID Qty: 180 3RF potassium chloride 20 mEq tablet extended release 20 meq PO DAILY Qty: 90 3RF albuterol sulfate 2.5 mg /3 mL (0.083 %) solution for nebulization 2.5 mg inhalation TID Discontinued furosemide 40 mg tablet 40 mg PO BID naproxen 500 mg tablet 500 mg PO BID PRN (Reason: Pain) Discharge Orders: Discharge Order (Routine); Ordered 12/25/24 Ordered By: Alex Roberts Other Ambulatory Orders: DME: [facility] (Order) Location: None Selected Ordered By: Alex Roberts Referrals: Rodo Melchor MD [Physician] - 1 week (egd and colonoscopy We have notified your physician's clinic of the need for a follow-up appointment to be scheduled. If you have not heard from them within the next 2 business days, please call them directly. ) Osiris Quispe NP [Primary Care Provider] - 7-10 days Mikael Nelson MD, MBBS, MPH [Referring] - 1 month (copd) Discharge Diet: Cardiac Discharge Activity: Resume usual activity Patient Instructions: Opioid Safety Activity Restrictions/Additional Instructions: - If you develop any bloody or black stools please go to emergency room -Please follow-up with general surgery in 1 week for consideration EGD and colonoscopy -Do not use naproxen as it is associate with increased risk of bleeds -Take antibiotics and steroids as prescribed -Please stop smoking -Please abstain from alcohol consumption -Please see primary care provider for recheck blood pressure -Follow-up with pulmonary in 1 month Discharge Attestations Time Spent in Discharge Care*: greater than 30 min Quality Metrics Clinical Quality Measures [ No reported AMI, CVA or VTE this stay] Coding Level of Care Code 60522 Total time (in minutes) for Discharge: 45 Diagnoses Primary hypertension I10 Hypertension type: primary hypertension Gastroesophageal reflux disease without esophagitis K21.9 Esophagitis presence: without esophagitis Pulmonary emphysema, unspecified emphysema type J43.9 Emphysema type: unspecified SOB (shortness of breath) R06.02 Requires supplemental oxygen Z99.81 Smoker F17.200 COPD exacerbation J44.1
[2024-12-25] MEDS: cefTRIAXone 1,000 mg SDV 1000 MG IVP (13:13)
== END 2024-12-25 15:35 | disposition home or self-care (01) | DRG 190 ==
LOC: ER 22:13 → ER IP 12-21 01:52 → MEDSURG 12-21 06:09
PROVIDERS: Admitting Provider Internal Medicine; Emergency Provider Emergency Medicine; PCP Nurse Practitioner Family; Visit Provider Family Medicine
DX: J44.1 Chronic obstructive pulmonary disease with (acute) exacerbation (principal); J18.9 Pneumonia, unspecified organism; F10.988 Alcohol use, unspecified with other alcohol-induced disorder; E87.1 Hypo-osmolality and hyponatremia; J44.0 Chronic obstructive pulmonary disease with (acute) lower respiratory infection; I11.0 Hypertensive heart disease with heart failure; I50.9 Heart failure, unspecified; K21.9 Gastro-esophageal reflux disease without esophagitis; J43.9 Emphysema, unspecified; F17.200 Nicotine dependence, unspecified, uncomplicated; D64.9 Anemia, unspecified; K20.90 Esophagitis, unspecified without bleeding; Z99.81 Dependence on supplemental oxygen; I69.941 Monoplegia of lower limb following unspecified cerebrovascular disease affecting right dominant side
CPT/HCPCS: 36415; 36600; 71045; 71275; 80048; 80051; 80053; 80306; 80307; 82274; 82330; 82607; 82728; 82805; 83540; 83550; 83605; 83735; 83880; 84295; 84443; 84484; 85014; 85018; 85025; 86140; 86850; 86900; 86920; 87637; 93005; 94640; 96372; 96374; 96375; 99285; J0360; J0456; J0696; J1644; J1940; J2470; J2919; J7050; J7512; P9016

== ENCOUNTER → 2025-01-01 07:45 | Outpatient (BNVA) | payer MEDICARE, OTHER, MEDICAID, SELFPAY | PROVIDERS: PCP Nurse Practitioner Family; Visit Provider Student in an Organized Health Care Education/Training Program | DX: D50.9 Iron deficiency anemia, unspecified (principal) | CPT/HCPCS: 99214 ==

== ENCOUNTER 2025-01-08 09:59 | Emergency (ER) | payer MEDICARE, MEDICAID, SELFPAY ==
[2025-01-08 10:00] VITALS: BP 125/71; PULSE 75; RESP 23; TEMP 36.6; O2SAT 91; BMI 26.6
--- NOTE | 2025-01-08 10:09 | ECG_ITS ---
[facility] Test Date: 2025-01-08 Pat Name: Moisés Mann Department: Room: Gender: Male Chief Architect: : [id number] Requested By: Kwabena Russell Order Number: [id number] Mo MD: Jeff English M.D. Measurements Intervals [place] Rate: 77 P: 63 IN: 142 QRS: 73 QRSD: 90 T: 45 QT: 396 QTc: 450 Interpretive Statements SINUS RHYTHM WITH OCCASIONAL SUPRAVENTRICULAR PREMATURE COMPLEXES MODERATE ST DEPRESSION [0.05+ mV ST DEPRESSION] Compared to ECG 12/24/2024 23:40:27 Sinus tachycardia no longer present ST (T wave) deviation still present Electronically Signed On 01-09-2025 19:07:15 CDT by Jeff English M.D. [email or web address]
--- NOTE | 2025-01-08 10:13 | XR_ITS ---
WS: [id number] Portable AP upright chest, 01/08/2025 Clinical Data: Dyspnea COPD Comparison: Portable chest, 12/20/2024 Findings: There is a patchy opacity in the lingula of the left upper lobe. The right lung is clear. No nodules, masses or effusions are seen. The heart is normal. The pulmonary vascularity is not increased. No pneumothorax is seen. The aortic arch is tortuous. There are monitor leads on the chest wall. XR/XR chest 1V portable [id number] Impression: 1. Patchy opacity in lingula of left upper lobe which may represent pneumonia. 2. Atherosclerosis.
--- NOTE | 2025-01-08 10:16 | W.ED.SOB ---
HPI - SOB/Dyspnea General: Chief Complaint: Shortness of Breath/Dyspnea Stated Complaint: SOB Time Seen by Provider: 01/08/25 10:02 History of Present Illness: HPI Narrative: Patient arrives to the ER via EMS with complaints of shortness of breath. Patient is normally on 2.5 L per nasal cannula as needed at home. EMS states patient was 84% on room air when they arrived. Patient arrived here at 88% on room air. EMS administered a DuoNeb and 125 mg Solu-Medrol. Patient denies any chest pain at this time. Patient was placed on 2 L per nasal cannula and increased his saturation up to 92%. Patient denies any fever or chills. Patient states he was just inpatient for breathing issues when the last couple weeks. When he was discharged he was feeling better but the last several days he just progressively went downhill. Related Data Home Medications ?Medication ?Instructions ?Recorded ?Confirmed fluticasone propionate 50 1 spray intranasal BID PRN Allergy 09/16/20 01/08/25 mcg/actuation nasal Symptoms spray,suspension (Allergy Relief (fluticasone)) ipratropium 0.5 mg-albuterol 3 mg 3 ml inhalation QID PRN Shortness 09/16/20 01/08/25 (2.5 mg base)/3 mL nebulization Of Breath Or Wheezing soln lisinopril 40 mg tablet 40 mg PO DAILY 09/16/20 01/08/25 albuterol sulfate 90 mcg/actuation 2 puff inhalation Q6H PRN 06/25/23 01/08/25 aerosol inhaler Shortness Of Breath Or Wheezing albuterol sulfate 2.5 mg/3 mL 2.5 mg inhalation TID 12/21/24 01/08/25 (0.083 %) solution for nebulization Previous Rx's ?Medication ?Instructions ?Recorded budesonide 160 mcg-glycopyr 9 2 inh inhalation BID #10.7 grams 03/05/24 mcg-formot 4.8 mcg/actuation HFA inhaler (Breztri Aerosphere) pantoprazole 40 mg tablet,delayed 40 mg PO BID 6 weeks #84 tabs 06/16/24 release amlodipine 5 mg tablet 5 mg PO BID #180 tabs 09/17/24 potassium chloride 20 mEq 20 meq PO DAILY #90 tabs 09/17/24 tablet,extended release cyanocobalamin (vitamin B-12) 1,000 mcg PO DAILY 30 days #30 tabs 12/25/24 1,000 mcg tablet (Vitamin B-12) folic acid 1 mg tablet 1 mg PO DAILY 30 days #30 tabs 12/25/24 furosemide 40 mg tablet 40 mg PO DAILY 30 days #30 tabs 12/25/24 sucralfate 1 gram tablet (Carafate) 1 g PO BID 4 weeks #56 tabs 12/25/24 thiamine mononitrate (vit B1) 100 100 mg PO DAILY 30 days #30 tabs 12/25/24 mg tablet (Vitamin B-1 (mononitrate)) cefdinir 300 mg capsule 300 mg PO BID 10 days #20 caps 01/08/25 prednisone 50 mg tablet 50 mg PO DAILY #5 tabs 01/08/25 Allergies Allergy/AdvReac Type Severity Reaction Status Date / Time No Known Allergies Allergy Verified 01/01/25 08:24 Review of Systems General: Reports: 10 or more systems reviewed and unremarkable except in HPI and below PFSH ED PFSH: Medical History Abnormal CT lung screening 04/2023, repeat scan 07/2023 without same findings History of myocardial perfusion scan 04/2023 no EKG changes, low probability coronary ischemia History of echocardiogram 03/2023 EF 55-60% History of PFTs 06/2023 severe obstructive disease with no significant change with bronchodilators Osteoarthritis GERD (gastroesophageal reflux disease) Hypertension COPD with emphysema CVA (cerebral vascular accident) right sided weakness, mild residual Surgical History History of coronary angioplasty ~2009 or earlier in [place], [place], had angioplasty of several vessels, no stents per him Social History Smoking and tobacco/nicotine status: current every day tobacco/nicotine user e-cigarettes E-Cigarette Details: e-cigarette E-cig/vape details: unknown if has nicotine- still smokes cigaretts but less Second hand smoke exposure: Yes Alcohol intake: current Alcohol intake frequency: 3 or more drinks per day Alcohol type: beer Substance/Drug Use: former Additional social history: Quit smoking in mid/late 2022 Lives independently: Yes Household members: none Marital status: Single service: Yes Current occupational status: disabled Do you think of yourself as: Straight/Heterosexual Current gender identity: Male Physical Exam Const: COMMON NORMALS: no acute distress, average body habitus, patient oriented x3, no limitations, healthy appearing, alert and well nourished HENMT: COMMON NORMALS: normocephalic, atraumatic, hearing grossly normal bilaterally, external ears normal, Normal external nose present, moist oral mucous membranes and oropharynx normal HEAD & SCALP: normocephalic and atraumatic NOSE: Normal external nose present EXTERNAL EAR: Yes external ears normal Neck/C-Spine: COMMON NORMALS: no JVD Chest: COMMONS NORMALS: normal inspection of the chest and normal palpation of entire chest wall Resp: COMMON NORMALS: normal respiratory effort, No retractions and No use of accessory muscles; negative for clear to auscultation bilaterally AUSCULTATION: not clear to auscultation bilaterally and rhonchi (Diffuse bilateral) Cardio: COMMON NORMALS: no JVD, regular rate, regular rhythm, S1 normal heart sound present, S2 normal heart sound present, No gallops present (Cardio), No clicks present (Cardio), No murmurs present (Cardio) and No rub (Cardio) RATE: regular rate RHYTHM: regular rhythm HEART SOUNDS: S1 normal heart sound present and S2 normal heart sound present GI: COMMON NORMALS: Normal to inspection, nondistended, normoactive bowel sounds present, Soft to palpation, non-tender, No hepatosplenomegaly present and no masses PALPATION: Yes Soft to palpation and Yes No hepatosplenomegaly present Neuro: COMMON NORMALS: patient oriented x3 SENSORIUM/ORIENTATION: Yes alert Course Vital Signs: Vital signs: Vital Signs Temperature 97.8 F 01/08/25 10:00 Pulse Rate 84 01/08/25 10:39 Respiratory Rate 17 01/08/25 10:39 Blood Pressure 125/71 01/08/25 10:00 Pulse Oximetry 96 01/08/25 10:39 Oxygen Delivery Me thod Nasal Cannula 01/08/25 10:39 Oxygen Flow Rate 2 01/08/25 10:39 MDM - SOB/Dyspnea Medical Decision Making White blood cell count 14.9, hemoglobin 8.6, hematocrit 28.0, sodium 130, chest x-ray showed patchy opacity in the lingula of the left upper lobe which may represent pneumonia. ABG essentially unremarkable pO2 67.8, BNP 2760, COVID influenza and RSV negative, patient was given 1 g of Tylenol, 3.375 g of Zosyn, EMS gave the patient a DuoNeb and 125 mg Solu-Medrol. Patient says he is feeling quite a bit better now. Patient was given the option to be admitted to the hospital for IV antibiotics or go home. Patient elected to go home knowing that he may worsen and have to come back to the hospital. Patient was okay with this decision. Patient will be sent home on cefdinir and prednisone. Medical Records I reviewed the patient's medical records. Lab Data I reviewed the patient's lab results. 01/08/25 10:13 01/08/25 10:13 Labs/Radiology: Radiology Impressions Chest X-Ray 01/08/25 10:13 Impression: 1. Patchy opacity in lingula of left upper lobe which may represent pneumonia. 2. Atherosclerosis. Laboratory Results WBC 14.99 10^3/uL (3.29-11.43) H 01/08/25 10:13 RBC 3.19 10^6/uL (3.85-5.65) L 01/08/25 10:13 Hgb 8.60 g/dL (11.27-16.99) L 01/08/25 10:13 Hct 28.0 % (37-53) L 01/08/25 10:13 MCV 87.8 fl (82-101) 01/08/25 10:13 MCH 27.0 pg (27-33) 01/08/25 10:13 MCHC 30.7 g/dL (30-55) 01/08/25 10:13 RDW 16.5 % (12.1-15.1) H 01/08/25 10:13 Plt Count 190 10^3/cmm (157-399) 01/08/25 10:13 MPV 9.5 fL (7.4-10.4) 01/08/25 10:13 Neut % (Auto) 84.3 % 01/08/25 10:13 Lymph % (Auto) 4.0 % 01/08/25 10:13 [place] % (Auto) 11.1 % 01/08/25 10:13 Eos % (Auto) 0.0 % 01/08/25 10:13 Baso % (Auto) 0.2 % 01/08/25 10:13 Neut # (Auto) 12.63 10^3/uL (1.8-7.7) H 01/08/25 10:13 Lymph # (Auto) 0.6 10^3/uL (0.8-4.8) L 01/08/25 10:13 [place] # (Auto) 1.7 10^3/uL (0.2-0.9) H 01/08/25 10:13 Eos # (Auto) 0.0 10^3/uL (0.0-0.8) 01/08/25 10:13 Baso # (Auto) 0.0 10^3/uL (0.0-0.1) 01/08/25 10:13 Nucleated RBC % (auto) 0 % 01/08/25 10:13 Nucleated RBCs # 0.0 /100WBC 01/08/25 10:13 Specimen Type Arterial 01/08/25 10:45 Sample Site Radial, left 01/08/25 10:45 ABG pH 7.39 (7.35-7.45) 01/08/25 10:45 ABG pCO2 45.2 mmHg (35-45) H 01/08/25 10:45 ABG pO2 67.8 mmHg (80.0-100.0) L 01/08/25 10:45 ABG HCO3 27.3 mmol/L (22-26) H 01/08/25 10:45 ABG O2 Saturation 93.3 01/08/25 10:45 ABG Base Excess 2.0 mmol/L (-2.0-2.0) 01/08/25 10:45 Maurice Test Pos 01/08/25 10:45 A-a O2 Gradient 3.3 mmHg (5-10) L 01/08/25 10:45 Hematocrit 28.1 % (42-52) L 01/08/25 10:45 Hgb O2 Saturation 91.4 % (95-100) L 01/08/25 10:45 Carboxyhemoglobin 1.4 %THgb (0.4-20.1) 01/08/25 10:45 Methemoglobin 0.6 % (0.4-1.5) 01/08/25 10:45 Total Hemoglobin 9.2 g/dL (14-18) L 01/08/25 10:45 Sodium 133.0 mmol/L (131-143) 01/08/25 10:45 Potassium 3.7 mmol/L (3.5-5.0) 01/08/25 10:45 Glucose 95.0 mg/dL (70-115) 01/08/25 10:45 Ionized Calcium 1.1 mmol/L (1.1-1.4) 01/08/25 10:45 O2 Delivery Device Nc 01/08/25 10:45 Annual Campaign Manager ID Glc 01/08/25 10:45 Sodium 130 mmol/L (136-145) L 01/08/25 10:13 Potassium 3.8 mmol/L (3.5-5.1) 01/08/25 10:13 Chloride 93 mmol/L (98-107) L 01/08/25 10:13 Carbon Dioxide 27 mmol/L (22-29) 01/08/25 10:13 Anion Gap 13.8 (5-19) 01/08/25 10:13 BUN 13 mg/dL (8-23) 01/08/25 10:13 Creatinine 1.1 mg/dL (0.7-1.2) 01/08/25 10:13 GFR Calculation 66.4 mL/min (90-130) L 01/08/25 10:13 Glucose 95 mg/dL (65-115) 01/08/25 10:13 Calculated Osmolality 270 mOsm/kg (285-295) L 01/08/25 10:13 Calcium 8.2 mg/dL (8.5-10.5) L 01/08/25 10:13 Total Bilirubin 0.4 mg/dL (0.15-1.2) 01/08/25 10:13 AST 25 U/L (0-40) 01/08/25 10:13 ALT 19 U/L (0-41) 01/08/25 10:13 Alkaline Phosphatase 50 U/L (40-130) 01/08/25 10:13 NT-Pro-B Natriuret Pep 2760 pg/mL (0-125) H 01/08/25 10:13 Total Protein 6.0 g/dL (6.6-8.7) L 01/08/25 10:13 Albumin 3.6 g/dL (3.5-5.2) 01/08/25 10:13 Globulin 2.4 g/dL (1.3-4.6) 01/08/25 10:13 Influenza A (PCR) Negative (Negative) 01/08/25 10:46 Influenza Type B (PCR) Negative (Negative) 01/08/25 10:46 RSV (PCR) Negative (Negative) 01/08/25 10:46 SARS-CoV-2 (PCR) Negative (Negative) 01/08/25 10:46 All radiology interpretation(s) finalized by discharge Discharge Plan Discharge Patient Disposition: Home Clinical Impression: Acute exacerbation of chronic obstructive airways disease Community acquired pneumonia Qualifiers: Laterality: left Lung location: lower lobe of lung Qualified Code(s): J18.9 - Pneumonia, unspecified organism Condition: Stable Prescriptions: New prednisone 50 mg tablet 50 mg PO DAILY Qty: 5 0RF cefdinir 300 mg capsule 300 mg PO BID 10 Days Qty: 20 0RF No Action lisinopril 40 mg tablet 40 mg PO DAILY ipratropium-albuterol 0.5 mg-3 mg(2.5 mg base)/3 mL solution for nebulization 3 ml inhalation QID PRN (Reason: Shortness Of Breath Or Wheezing) fluticasone propionate [Allergy Relief (fluticasone)] 50 mcg/actuation spray,suspension 1 spray intranasal BID PRN (Reason: Allergy Symptoms) Rx Instructions: administer into each nostril pantoprazole 40 mg tablet,delayed release (DR/EC) 40 mg PO BID 42 Days Qty: 84 1RF albuterol sulfate 90 mcg/actuation HFA aerosol inhaler 2 puff inhalation Q6H PRN (Reason: Shortness Of Breath Or Wheezing) Breztri Aerosphere 160-9-4.8 mcg/actuation HFA aerosol inhaler 2 inh inhalation BID Qty: 10.7 6RF amlodipine 5 mg tablet 5 mg PO BID Qty: 180 3RF potassium chloride 20 mEq tablet extended release 20 meq PO DAILY Qty: 90 3RF albuterol sulfate 2.5 mg /3 mL (0.083 %) solution for nebulization 2.5 mg inhalation TID furosemide 40 mg Tablet 40 mg PO DAILY 30 Days Qty: 30 0RF cyanocobalamin (vitamin B-12) [Vitamin B-12] 1,000 mcg Tablet 1,000 mcg PO DAILY 30 Days Qty: 30 0RF folic acid 1 mg Tablet 1 mg PO DAILY 30 Days Qty: 30 0RF thiamine mononitrate (vit B1) [Vitamin B-1 (mononitrate)] 100 mg Tablet 100 mg PO DAILY 30 Days Qty: 30 0RF sucralfate [Carafate] 1 gram tablet 1 g PO BID 28 Days Qty: 56 0RF Discharge Orders: Discharge ED (Routine); Ordered 01/08/25 Ordered By: Kwabena Russell Referrals: Osiris Quispe, STATION ENGINEER CHIEF [Primary Care Provider] - 1 week Patient Instructions: Community Acquired Pneumonia (DC), COPD (Chronic Obstructive Pulmonary Disease) (DC) Activity Restrictions/Additional Instructions: Activity restrictions/additional instructions: Thank you for choosing [facility] for your healthcare needs today. Please realize that you were seen in the emergency department and that we are providing you with an emergency medical screening exam and this may not be a complete and all exclusive of all testing and/or medical workup we may need to determine your element or severity of your illness. It is very important that you follow-up as instructed with your primary care provider or specialist for the additional evaluation and to discuss your medical treatment plan. You may return to the emergency department should you have concerns or if your condition changes or worsens in any way. 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
[2025-01-08 10:25] LABS: Basophils % 0.2 %; Lymphocytes # 0.6 10^3/uL (0.8-4.8); Mean Corpuscular HGB Conc 30.7 g/dL (30-55); Mean Corpuscular Volume 87.8 fl (82-101); Mean Platelet Volume 9.5 fL (7.4-10.4); Monocytes # 1.7 10^3/uL (0.2-0.9); Monocytes % 11.1 %; Neutrophils # 12.63 10^3/uL (1.8-7.7); Neutrophils % 84.3 %; Nucleated Red Blood Cells % 0 %; Platelet Count 190 10^3/cmm (157-399); Red Blood Count 3.19 10^6/uL (3.85-5.65); Red Cell Distribution Width 16.5 % (12.1-15.1); White Blood Count 14.99 10^3/uL (3.29-11.43)
[2025-01-08 10:39] VITALS: PULSE 83; PULSE 84; RESP 17; RESP 24; O2SAT 90; O2SAT 96
[2025-01-08] MEDS: albuterol 2.5 mg/3 mL Neb INHALATION (10:46)
[2025-01-08 10:54] LABS: Alanine Aminotransferase 19 U/L (0-41); Albumin Level 3.6 g/dL (3.5-5.2); Alkaline Phosphatase 50 U/L (40-130); Anion Gap 13.8 (5-19); Aspartate Amino Transferase 25 U/L (0-40); Blood Urea Nitrogen 13 mg/dL (8-23); Calcium 8.2 mg/dL (8.5-10.5); Carbon Dioxide 27 mmol/L (22-29); Chloride 93 mmol/L (98-107); Creatinine Clr Calc Pharmacy 63.2047; Globulin 2.4 g/dL (1.3-4.6); Glomerular Filtration Rate 66.4 mL/min (90-130); Glucose 95 mg/dL (65-115); NT Pro B Type Natriuretic Pept 2760 pg/mL (0-125); Osmolality Calculated 270 mOsm/kg (285-295); Potassium 3.8 mmol/L (3.5-5.1); Sodium 130 mmol/L (136-145); Total Bilirubin 0.4 mg/dL (0.15-1.2)
[2025-01-08 10:57] LABS: ABG PCO2 45.2 mmHg (35-45); ABG PH Result 7.39 (7.35-7.45); Alveolar-Arterial Oxygen Gradi 3.3 mmHg (5-10); Arterial Blood Gas Hematocrit 28.1 % (42-52); Blood Gas Allen Test Pos; Blood Gas Operator Identificat GLC; Blood Gas Sample Site Radial, left; Blood Gas Sample Type Arterial; Carboxyhemoglobin 1.4 %THgb (0.4-20.1); HCO3 ABG 27.3 mmol/L (22-26); HGB O2 Sat 91.4 % (95-100); Ionized Calcium Level - ABG 1.1 mmol/L (1.1-1.4); Methemoglobin 0.6 % (0.4-1.5); Oxygen Saturation ABG 93.3; PO2 ABG 67.8 mmHg (80.0-100.0); Potassium Level - ABG 3.7 mmol/L (3.5-5.0); Total Hemoglobin 9.2 g/dL (14-18)
[2025-01-08 10:58] LABS: Oxygen Device NC
[2025-01-08] MEDS: acetaminophen 500 mg Tablet 1000 MG PO (11:13)
[2025-01-08 11:41] LABS: Influenza A NEGATIVE (Negative); Influenza B NEGATIVE (Negative); Respiratory Syncytial Virus Ce NEGATIVE (Negative); SARS-CoV-2 PCR NEGATIVE (Negative)
--- NOTE | 2025-01-08 12:52 | PC.NURSE ---
abx delayed d/t cultures ordered @same time, needing to be drawn
[2025-01-08 13:09] VITALS: BP 113/86; PULSE 80; RESP 21; O2SAT 96
[2025-01-08] MEDS: piperacillin-tazobactam 3.375 GM in sodium chloride 0.9% (plus) 50 ML IV (13:13)
[2025-01-08 13:23] LABS: Lactic Sepsis W/Reflex 1.3 mmol/L (0.5-2.2)
[2025-01-08 14:10] VITALS: BP 161/89; PULSE 82; O2SAT 94
[2025-01-08 14:16] LABS: Procalcitonin 0.13 ng/mL (0-0.5)
== END 2025-01-08 14:17 | disposition home or self-care (01) ==
PROVIDERS: Emergency Provider Emergency Medicine; PCP Nurse Practitioner Family
DX: J44.1 Chronic obstructive pulmonary disease with (acute) exacerbation (principal); J18.9 Pneumonia, unspecified organism; Z11.52 Encounter for screening for COVID-19; F17.290 Nicotine dependence, other tobacco product, uncomplicated; Z86.73 Personal history of transient ischemic attack (TIA), and cerebral infarction without residual deficits; I10 Essential (primary) hypertension
CPT/HCPCS: 36600; 71045; 80051; 80053; 82330; 82805; 83605; 83880; 84145; 85025; 87040; 87637; 93005; 94640; 96374; 99285; J2543; J7613; J9999

== ENCOUNTER 2025-01-20 05:30 | Day surgery (SDC) | payer MEDICARE, MEDICAID, SELFPAY ==
[2025-01-20 05:55] VITALS: BMI 25.8
[2025-01-20 06:13] VITALS: BP 140/104; PULSE 95; RESP 18; TEMP 36.3; O2SAT 97
[2025-01-20] MEDS: sodium chloride 0.9% 500 ML 15 ML IV (06:16)
--- NOTE | 2025-01-20 06:52 | ANES.PREANE2 ---
Pre-Anesthetic Assessment Height/Weight: Height 1.7 m Weight 74.843 kg Temp Pulse Resp BP Pulse Ox O2 Del Method 97.3 F L 95 18 140/104 97 Room Air 01/20/25 06:13 01/20/25 06:13 01/20/25 06:13 01/20/25 06:13 01/20/25 06:13 01/20/25 06:13 Preop Diagnosis: anemia, gerd Operation Date: 01/20/25 07:00 Proposed Procedures p EGD [id number] G0105(Not Applicable) - Rodo Melchor MD s Colonoscopy(Not Applicable) - Rodo Melchor MD Familial anesthetic complications: none Was Beta Charisse taken within 24 hours: Yes Last intake: Intake Last Liquid Date 01/19/25 Last Liquid Time 20:30 Last Solid Date 01/19/25 Last Solid Time 15:00 Social Alcohol and No tobacco (quit 10 days ago) Exam alert, oriented x 3 and regular rate & rhythm coarse productive cough expiratory wheezes. Airway Submandibular: within normal limits Cervical ROM: within normal limits Mallampati: Class II Dentition: false (upper and lower) Pulmonary Chronic Obstructive Pulmonary Disease and Shortness of Breath recent hospitalization due to COPD exacerbation CV/HEM Anemia, Coronary Artery Disease and Hypertension denies heart stents or chest pain. None reported hyponatremia Hepatic None reported GI Gastroesophageal Reflux Disease Metabolic None reported Musc/skel Weakness (CVA in 1999 right sided weakness cane use) Neuropsych Cerebrovascular Accident (1999) Anesthetic Plan ASA status: 3 Anesthesia: MAC Medications/Allergies Home Medications ?Medication ?Instructions ?Recorded ?Confirmed ?Last Taken ?Type ipratropium 0.5 mg-albuterol 3 mg 3 ml inhalation QID PRN Shortness 09/16/20 01/14/25 01/14/25 History (2.5 mg base)/3 mL nebulization Of Breath Or Wheezing soln lisinopril 40 mg tablet 40 mg PO DAILY 09/16/20 01/14/25 01/19/25 History albuterol sulfate 90 mcg/actuation 2 puff inhalation Q6H PRN 06/25/23 01/14/25 01/19/25 History aerosol inhaler Shortness Of Breath Or Wheezing budesonide 160 mcg-glycopyr 9 2 inh inhalation BID #10.7 grams 03/05/24 01/14/25 01/19/25 Rx mcg-formot 4.8 mcg/actuation HFA inhaler ([employer]) pantoprazole 40 mg tablet,delayed 40 mg PO BID 6 weeks #84 tabs 06/16/24 01/14/25 01/19/25 Rx release amlodipine 5 mg tablet 5 mg PO BID #180 tabs 09/17/24 01/14/25 01/19/25 Rx albuterol sulfate 2.5 mg/3 mL 2.5 mg inhalation TID 12/21/24 01/14/25 01/19/25 History (0.083 %) solution for nebulization metoprolol tartrate 50 mg tablet 50 mg PO DAILY 01/20/25 01/20/25 01/19/25 History naproxen 500 mg tablet 500 mg PO BID PRN Pain (Scale 01/20/25 01/20/25 01/19/25 History Score 4-6) Allergies Allergy/AdvReac Type Severity Reaction Status Date / Time No Known Allergies Allergy Verified 01/14/25 10:02 Current Medications Generic Name Dose Route Start Last Admin Trade Name Freq PRN Reason Stop Dose Admin Sodium Chloride 500 mls @ 15 mls/hr 01/20/25 05:43 01/20/25 06:16 Sodium Chloride 0.9% IV 01/21/25 05:42 15 mls/hr .Q24H PRN Administration COLONOSCOPY FLUIDS PFSH Anesthesia Medical History Abnormal CT lung screening 04/2023, repeat scan 07/2023 without same findings History of myocardial perfusion scan 04/2023 no EKG changes, low probability coronary ischemia History of echocardiogram 03/2023 EF 55-60% History of PFTs 06/2023 severe obstructive disease with no significant change with bronchodilators Osteoarthritis GERD (gastroesophageal reflux disease) Hypertension COPD with emphysema CVA (cerebral vascular accident) right sided weakness, mild residual Surgical History History of coronary angioplasty ~2009 or earlier in [place], [place], had angioplasty of several vessels, no stents per him Social History Smoking and tobacco/nicotine status: current every day tobacco/nicotine user e-cigarettes E-Cigarette Details: e-cigarette E-cig/vape details: unknown if has nicotine- still smokes cigaretts but less Second hand smoke exposure: Yes Alcohol intake: current Alcohol intake frequency: 3 or more drinks per day Alcohol type: beer Substance/Drug Use: former Additional social history: Quit smoking in mid/late 2022 Lives independently: Yes Household members: none Marital status: Single service: Yes Current occupational status: disabled Do you think of yourself as: Straight/Heterosexual Current gender identity: Male Data Anesthesia Cardiac Studies: Echocardiogram 12/31/23 Echocardiogram Ultrasound 10/05/20 Sestamibi Stress Test (Cardiology) 07/14/24 Holter Monitor 01/18/23
[2025-01-20 07:01] VITALS: PULSE 79; RESP 18; O2SAT 98
--- NOTE | 2025-01-20 07:03 | W.PM.OPSUD ---
Surgery/Procedure H&P Update DATE OF PROCEDURE: January 20, 2025 DATE H&P PERFORMED: 01/01/25 H&P UPDATE INFORMATION: I have reviewed H&P completed within last 30 days, I have examined patient prior to procedure and No changes to prior documentation PREOP DIAGNOSIS: anemia, gerd PLANNED PROCEDURE: Operation Date: 01/20/25 07:00 Proposed Procedures p EGD [id number] G0105(Not Applicable) - Rodo Melchor MD s Colonoscopy(Not Applicable) - Rodo Melchor MD
[2025-01-20] MEDS: ipratropium-albuterol 3 mL Neb INHALATION (07:07)
[2025-01-20 07:39] VITALS: BP 105/70; PULSE 82; RESP 16; TEMP 36.1; O2SAT 97
[2025-01-20 07:52] VITALS: BP 113/78; PULSE 87; RESP 18; O2SAT 97
--- NOTE | 2025-01-20 08:12 | ANE.PACU2 ---
Inpatient post-anesthesia follow up: Airway intact: Yes Vital signs: Temperature 97 F Pulse Rate 87 Respiratory Rate 18 Blood Pressure 113/78 Pulse Oximetry 97 Oxygen Delivery Me thod Room Air Oxygen Flow Rate Fraction of Inspir ed Oxygen Hydration adequate: Yes Nausea and vomiting: No Pain level: 1 Mental status: Baseline
== END 2025-01-20 08:12 | disposition home or self-care (01) ==
PROVIDERS: PCP Nurse Practitioner Family; Visit Provider Student in an Organized Health Care Education/Training Program
PROC: 0DJ08ZZ Inspection of Upper Intestinal Tract, Via Natural or Artificial Opening Endoscopic (ICD-10-PCS; principal; 2025-01-20 07:00)
PROC: 0DJD8ZZ Inspection of Lower Intestinal Tract, Via Natural or Artificial Opening Endoscopic (ICD-10-PCS; CPT 45378; 2025-01-20 07:00)
DX: K57.30 Diverticulosis of large intestine without perforation or abscess without bleeding (principal); K64.4 Residual hemorrhoidal skin tags; K29.50 Unspecified chronic gastritis without bleeding; K21.9 Gastro-esophageal reflux disease without esophagitis; I10 Essential (primary) hypertension; Z97.2 Presence of dental prosthetic device (complete) (partial); I25.10 Atherosclerotic heart disease of native coronary artery without angina pectoris; I69.351 Hemiplegia and hemiparesis following cerebral infarction affecting right dominant side; D50.9 Iron deficiency anemia, unspecified; J43.9 Emphysema, unspecified; Z87.891 Personal history of nicotine dependence; M19.90 Unspecified osteoarthritis, unspecified site; Z79.899 Other long term (current) drug therapy
CPT/HCPCS: 43239; 45378; 88305; 94640; J2704; J7040; J9999

== ENCOUNTER → 2025-02-02 09:50 | Outpatient (BNVA) | payer MEDICARE, MEDICAID, SELFPAY | PROVIDERS: PCP Nurse Practitioner Family; Visit Provider Student in an Organized Health Care Education/Training Program | DX: Z09 Encounter for follow-up examination after completed treatment for conditions other than malignant neoplasm (principal) | CPT/HCPCS: 99213 ==

== ENCOUNTER 2025-05-28 07:55 | Emergency (ER) | payer MEDICARE, MEDICAID, SELFPAY ==
[2025-05-28 08:02] VITALS: BP 156/76; PULSE 95; RESP 26; TEMP 36.9; O2SAT 97
--- NOTE | 2025-05-28 08:16 | XR_ITS ---
WS: [id number] Portable AP upright chest, 05/28/2025 Clinical Data: dyspnea/cough Comparison: Portable chest, 01/08/2025 Findings: No nodules, masses or effusions are seen. The heart is normal. The pulmonary vascularity is not increased. No pneumonia or pneumothorax is seen. The aortic arch shows tortuosity. XR/XR chest 1V portable [id number] Impression: Atherosclerosis.
--- NOTE | 2025-05-28 08:16 | ECG_ITS ---
[facility] Date: 2025-05-28 Pat Name: Moisés Mann Department: Room: Gender: Male Uniform Cap Operator: : 1955 Requested By: Jimenez Hollis Order Number: [id number] Mo MD: Jeff English M.D. Measurements Intervals [place] Rate: 90 P: 4 WA: 141 QRS: 15 QRSD: 89 T: 11 QT: 358 QTc: 438 Interpretive Statements SINUS RHYTHM WITH OCCASIONAL SUPRAVENTRICULAR PREMATURE COMPLEXES Compared to ECG 01/08/2025 10:02:04 ST (T wave) deviation no longer present Electronically Signed On 05-28-2025 10:20:36 CDT by Jeff English M.D. [id number]
[2025-05-28 08:29] LABS: Hematocrit 28.3 % (37-53); Hemoglobin 8.60 g/dL (11.27-16.99); Mean Corpuscular HGB Conc 30.4 g/dL (30-55); Mean Corpuscular Hemoglobin 25.1 pg (27-33); Mean Corpuscular Volume 82.7 fl (82-101); Nucleated Red Blood Cells % 0 %; Platelet Count 303 10^3/cmm (157-399); Red Blood Count 3.42 10^6/uL (3.85-5.65); White Blood Count 11.62 10^3/uL (3.29-11.43)
[2025-05-28 08:49] LABS: Alanine Aminotransferase 11 U/L (0-41); Albumin Level 3.8 g/dL (3.5-5.2); Alkaline Phosphatase 55 U/L (40-130); Anion Gap 18.3 (5-19); Aspartate Amino Transferase 18 U/L (0-40); Blood Urea Nitrogen 13 mg/dL (8-23); Calcium 8.6 mg/dL (8.5-10.5); Carbon Dioxide 24 mmol/L (22-29); Chloride 92 mmol/L (98-107); Creatinine Clr Calc Pharmacy 67.6639; Globulin 2.8 g/dL (1.3-4.6); Glucose 91 mg/dL (65-115); Osmolality Calculated 270 mOsm/kg (285-295); Potassium 4.3 mmol/L (3.5-5.1); Sodium 130 mmol/L (136-145); Total Protein 6.6 g/dL (6.6-8.7)
--- NOTE | 2025-05-28 08:51 | ED_ITS ---
HPI - SOB/Dyspnea 2 General: Chief Complaint: Shortness of Breath/Dyspnea Stated Complaint: SOB Time Seen by Provider: 05/28/25 08:15 History of Present Illness: HPI Narrative: 70-year-old male presents emergency room complaint of increased shortness of breath. He is a history of COPD he normally wears 2 L by nasal cannula at home. Arrived by ambulance he received 125 Solu-Medrol and DuoNebs and route Associated symptoms: Deny abdominal pain, chest pain or fever(s) Related Data Home Medications ?Medication ?Instructions ?Recorded ?Confirmed ipratropium 0.5 mg-albuterol 3 mg 3 ml inhalation QID PRN Shortness 09/16/20 02/02/25 (2.5 mg base)/3 mL nebulization Of Breath Or Wheezing soln lisinopril 40 mg tablet 40 mg PO DAILY 09/16/2005/22 albuterol sulfate 90 mcg/actuation 2 puff inhalation Q 6H PRN 06/25/23 02/02/25 aerosol inhaler Shortness Of Breath Or Wheez ing albuterol sulfate 2.5 mg/3 mL 2.5 mg inhalation TID 02/02/25 (0.083 %) solution for nebulization metoprolol tartrate 50 mg tablet 50 mg PO DAILY 02/02/25 naproxen 500 mg tablet 500 mg PO BID PRN Pain (Scal e 01/20/25 02/02/25 Score 4-6) Previous Rx's ?Medication ?Instructions ?Recorded budesonide 160 mcg-glycopyr 9 2 inh inhalation BID #10 .7 grams 03/05/24 mcg-formot 4.8 mcg/actuation HFA inhaler (Breztri Aerosphere) pantoprazole 40 mg tablet,delayed 40 mg PO BID 6 weeks #84 tabs 06/16/24 release amlodipine 5 mg tablet 5 mg PO BID #180 tabs albuterol sulfate 90 mcg/actuation 2 inh inhalation Q4 H PRN shortness 05/28/25 aerosol inhaler of breath or wheezing #18 gr ams ipratropium 0.5 mg-albuterol 3 mg 3 ml inhalation Q4H PRN shortness 05/28/25 (2.5 mg base)/3 mL nebulization of breath or wheezing #90 mL soln prednisone 20 mg tablet 20 mg PO TID #15 tabs Allergies Allergy/AdvReac Type Severity Reaction Status Date / Time No Known Allergies Allergy Verified 02/02/25 10:01 Review of Systems 2 Const: Denies: fever(s) or chills Card: Denies: chest pain Resp: Denies: dyspnea GI: Denies: abdominal pain : Denies: dysuria, urinary frequency or urinary urgency Musc: Denies: neck pain or back pain Skin/Breast: Denies: rash PFSH ED 2 PFSH: Medical History Abnormal CT lung screening 04/2023, repeat scan 07/2023 without same findings History of myocardial perfusion scan 04/2023 no EKG changes, low probability coronary ischemia History of echocardiogram 03/2023 EF 55-60% History of PFTs 06/2023 severe obstructive disease with no significant change with bronchodilators Osteoarthritis GERD (gastroesophageal reflux disease) Hypertension COPD with emphysema CVA (cerebral vascular accident) right sided weakness, mild residual Surgical History History of coronary angioplasty ~2009 or earlier in [place], [place], had angioplasty of several vessels, no stents per him Social History Smoking and tobacco/nicotine status: current every day tobacco/nicotine user e- cigarettes E-Cigarette Details: e-cigarette E-cig/vape details: unknown if has nicotine- still smokes cigaretts but less Second hand smoke exposure: Yes Alcohol intake: current Alcohol intake frequency: 3 or more drinks per day Alcohol type: beer Substance/Drug Use: former Additional social history: Quit smoking in mid/late 2022 Lives independently: Yes Household members: none Marital status: Single service: Yes Current occupational status: disabled Do you think of yourself as: Straight/Heterosexual Current gender identity: Male Physical Exam 2 Const: GENERAL APPEARANCE: cooperative ORIENTATION/CONSCIOUSNESS: Yes awake, Yes oriented to person, Yes oriented to place and Yes oriented to time HENMT: COMMON NORMALS: normocephalic, atraumatic and hearing grossly normal bilaterally HEAD & SCALP: normocephalic and atraumatic Resp: COMMON NORMALS: normal respiratory effort, No retractions, No use of accessory muscles and clear to auscultation bilaterally AUSCULTATION: clear to auscultation bilaterally Cardio: COMMON NORMALS: regular rate, regular rhythm and No murmurs present (Cardio) RATE: regular rate RHYTHM: regular rhythm GI: COMMON NORMALS: Soft to palpation and No hepatosplenomegaly present A USCULTATION: Yes normoactive bowel sounds PALPATION: Yes Soft to palpation, No Tenderness to palpation present (GI), No Guarding due to palpation present (GI) and Yes No hepatosplenomegaly present Extremity: COMMON NORMALS: normal to inspection, capillary refill normal, no clubbing, cyanosis or edema, no calf tenderness and no pedal edema Neuro: SENSORIUM/ORIENTATION: Yes oriented to person, Yes oriented to place and Yes oriented to time Skin: COMMON NORMALS: no rashes or lesions noted GENERAL SKIN EXAM: no rashes or lesions noted Course 2 Vital Signs: Vital signs: Vital Signs Temperature 98.4 F 05/28/25 08:02 Pulse Rate 100 05/28/25 11:57 Respiratory Rate 16 05/28/25 08:52 Blood Pressure 174/77 05/28/25 11:57 Pulse Oximetry 93 05/28/25 11:57 Oxygen Delivery Me thod Nasal Cannula 05/28/25 08:52 Oxygen Flow Rate 2 05/28/25 08:52 MDM - SOB/Dyspnea Medical Decision Making Improved with nebulizers and steroids. Patient has not had a productive cough. Chest x-ray is normal discharged home on steroid taper continue the albuterol and DuoNebs at home follow-up with his primary care doctor return if he has further problems. Labs and imaging reviewed patient not having any chest pain at time of discharge Differential Diagnosis Likely acute exacerbation of chronic obstructive airways disease Medical Records I reviewed the patient's medical records. Lab Data I reviewed the patient's lab results. 05/28/25 08:24 05/28/25 08:24 Labs/Radiology: Radiology Impressions Chest X-Ray 05/28/25 08:16 Impression: Atherosclerosis. Laboratory Results WBC 11.62 10^3/uL (3.29-11.43) H 05/28/25 08:24 RBC 3.42 10^6/uL (3.85-5.65) L 05/28/25 08:24 Hgb 8.60 g/dL (11.27-16.99) L 05/28/25 08:24 Hct 28.3 % (37-53) L 05/28/25 08:24 MCV 82.7 fl (82-101) 05/28/25 08:24 MCH 25.1 pg (27-33) L 05/28/25 08:24 MCHC 30.4 g/dL (30-55) 05/28/25 08:24 RDW 17.1 % (12.1-15.1) H 05/28/25 08:24 Plt Count 303 10^3/cmm (157-399) 05/28/25 08:24 MPV 9.2 fL (7.4-10.4) 05/28/25 08:24 Neut % (Auto) 63.7 % 05/28/25 08:24 Lymph % (Auto) 22.6 % 05/28/25 08:24 [place] % (Auto) 11.3 % 05/28/25 08:24 Eos % (Auto) 1.4 % 05/28/25 08:24 Baso % (Auto) 0.3 % 05/28/25 08:24 Neut # (Auto) 7.41 10^3/uL (1.8-7.7) 05/28/25 08:24 Lymph # (Auto) 2.6 10^3/uL (0.8-4.8) 05/28/25 08:24 [place] # (Auto) 1.3 10^3/uL (0.2-0.9) H 05/28/25 08:24 Eos # (Auto) 0.2 10^3/uL (0.0-0.8) 05/28/25 08:24 Baso # (Auto) 0.0 10^3/uL (0.0-0.1) 05/28/25 08:24 Nucleated RBC % (auto) 0 % 05/28/25 08:24 Nucleated RBCs # 0.0 /100WBC 05/28/25 08:24 Sodium 130 mmol/L (136-145) L 05/28/25 08:24 Potassium 4.3 mmol/L (3.5-5.1) 05/28/25 08:24 Chloride 92 mmol/L (98-107) L 05/28/25 08:24 Carbon Dioxide 24 mmol/L (22-29) 05/28/25 08:24 Anion Gap 18.3 (5-19) 05/28/25 08:24 BUN 13 mg/dL (8-23) 05/28/25 08:24 Creatinine 1.0 mg/dL (0.7-1.2) 05/28/25 08:24 GFR Calculation 73.9 mL/min (90-130) L 05/28/25 08:24 Glucose 91 mg/dL (65-115) 05/28/25 08:24 Calculated Osmolality 270 mOsm/kg (285-295) L 05/28/25 08:24 Calcium 8.6 mg/dL (8.5-10.5) 05/28/25 08:24 Total Bilirubin 0.3 mg/dL (0.15-1.2) 05/28/25 08:24 AST 18 U/L (0-40) 05/28/25 08:24 ALT 11 U/L (0-41) 05/28/25 08:24 Alkaline Phosphatase 55 U/L (40-130) 05/28/25 08:24 Total Protein 6.6 g/dL (6.6-8.7) 05/28/25 08:24 Albumin 3.8 g/dL (3.5-5.2) 05/28/25 08:24 Globulin 2.8 g/dL (1.3-4.6) 05/28/25 08:24 Urine Color Yellow (Yellow) 05/28/25 09:41 Urine Appearance Clear (CLEAR) 05/28/25 09:41 Urine pH 6.5 (5-7) 05/28/25 09:41 Ur Specific [place] 1.005 (1.005-1.030) 05/28/25 09:41 Urine Protein Trace (Negative) A 05/28/25 09:41 Urine Glucose (UA) Negative (Normal) 05/28/25 09:41 Urine Ketones Negative (Negative) 05/28/25 09:41 Urine Blood Negative (Negative) 05/28/25 09:41 Urine Nitrate Negative (Negative) 05/28/25 09:41 Urine Bilirubin Negative (Negative) 05/28/25 09:41 Urine Urobilinogen 0.2 mg/dL (Negative) 05/28/25 09:41 Ur Leukocyte Esterase Negative (Negative) 05/28/25 09:41 Urine RBC 0-2 /hpf (0-2) 05/28/25 09:41 Urine WBC 0-5 /hpf (0-5) 05/28/25 09:41 Ur Squamous Epith Cells 0-5 /hpf (0-5) 05/28/25 09:41 Amorphous Sediment Not Reportable 05/28/25 09:41 Urine Bacteria None seen /hpf (NONE) 05/28/25 09:41 Hyaline Casts 0-4 /lpf H 05/28/25 09:41 Influenza A (PCR) Negative (Negative) 05/28/25 10:34 Influenza Type B (PCR) Negative (Negative) 05/28/25 10:34 RSV (PCR) Negative (Negative) 05/28/25 10:34 SARS-CoV-2 (PCR) Negative (Negative) 05/28/25 10:34 All radiology interpretation(s) finalized by discharge Discharge Plan Discharge Patient Disposition: Home Clinical Impression: Acute exacerbation of chronic obstructive airways disease Condition: Stable Prescriptions: New ipratropium-albuterol 0.5 mg-3 mg(2.5 mg base)/3 mL solution for nebulization 3 ml inhalation Q4H PRN (Reason: shortness of breath or wheezing) Qty: 90 0RF albuterol sulfate 90 mcg/actuation HFA aerosol inhaler 2 inh INHALATION Q4H PRN (Reason: shortness of breath or wheezing) Qty: 18 0RF prednisone 20 mg tablet 20 mg PO TID Qty: 15 0RF Rx Instructions: 1 p.o. 3 times daily x3 days, 1 p.o. twice daily x2 days, 1 p.o. daily x2 days No Action lisinopril 40 mg tablet 40 mg PO DAILY ipratropium-albuterol 0.5 mg-3 mg(2.5 mg base)/3 mL solution for nebulization 3 ml inhalation QID PRN (Reason: Shortness Of Breath Or Wheezing) pantoprazole 40 mg tablet,delayed release (DR/EC) 40 mg PO BID 42 Days Qty: 84 1RF albuterol sulfate 90 mcg/actuation HFA aerosol inhaler 2 puff inhalation Q6H PRN (Reason: Shortness Of Breath Or Wheezing) Breztri Aerosphere 160-9-4.8 mcg/actuation HFA aerosol inhaler 2 inh inhalation BID Qty: 10.7 6RF amlodipine 5 mg tablet 5 mg PO BID Qty: 180 3RF albuterol sulfate 2.5 mg /3 mL (0.083 %) solution for nebulization 2.5 mg inhalation TID metoprolol tartrate 50 mg Tablet 50 mg PO DAILY naproxen 500 mg Tablet 500 mg PO BID PRN (Reason: Pain (Scale Score 4-6)) Discharge Orders: Discharge ED (Routine); Ordered 05/28/25 Ordered By: Jimenez Ortiz Referrals: Osiris Quispe NP [Primary Care Provider, Unknown] Discharge Diet: Usual diet Discharge Activity: Increase activity as tolerated Patient Instructions: Opioid Safety, Pain Management, Patient Portal & Roverto Instructions Activity Restrictions/Additional Instructions: Thank you for choosing [facility] for your healthcare needs today. It is very important that you follow up as instructed or that you return to the Emergency Department should you have concerns or if your condition changes or worsens in any way. You were seen in the emergency room with complaints shortness of breath. On evaluation in the emergency room your chest x-ray was normal white count was slightly elevated. You are mildly anemic but this has been chronic You should follow-up with your primary care doctor regarding your anemia. We did give you steroids in the emergency room as well as breathing treatments. Recommend you start oral steroid taper this evening. Continue to use albuterol ipratropium bromide nebulizers as needed if your symptoms worsen or change recheck Print Language: Armenian Coding Level of Care Code ED Emergency Room Tech for Brett Pope
[2025-05-28 08:52] VITALS: BP 164/72; PULSE 92; RESP 16; O2SAT 98
[2025-05-28 09:52] LABS: Glucose Urine UA Negative (Normal); Nitrate Urine Negative (Negative); Specific Gravity, Urine 1.005 (1.005-1.030)
[2025-05-28 10:01] LABS: Add Urine Microscopic? YES
[2025-05-28 11:16] LABS: Respiratory Syncytial Virus Ce NEGATIVE (Negative); SARS-CoV-2 PCR NEGATIVE (Negative)
[2025-05-28 11:57] VITALS: BP 174/77; PULSE 100; O2SAT 93
--- OUTSIDE RECORDS SUMMARY | 2025-05-29 03:30 | XMS_ITS | Clinical Summary ---
Author Organization [facility] Address [address] Attn: [place] [address] Care Team Providers Care Human Resource Professional Name Role Phone Adilson Brewer Primary Care Provider Allergies No known active allergies Active Problems Problem Noted Date Diagnosed Date Lumbosacral spondylosis without myelopathy 06/30 Thoracic or lumbosacral neur itis or radiculitis, unspecified 06/30/2010 Herniated lumbar intervertebral disc 06/21/2010 Family History Medical History Relation Name Comments Hypertension Brother Hypertension Mother Hypertension Sister Relation Name Status Comments Brother Mother Sister Social History Tobacco Use Types Packs/Day Years Used Date Smoking Tobacco: Every Day Cigarettes Alcohol Use Standard Drinks/Week Comments Yes 10 (1 standard drink = 0.6 oz pu re alcohol) Sex and Gender Information Value Date Recorded Sex Assigned at Not on file 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 Gender Identity Not on file Sexual Orientation Not on file Plan of Treatment Upcoming Encounters Date Type Department Care Team (Late st Contact Info) Description 07/22/2025 10:30 AM CDT Office Visit [facility] [address] [place] [id number] George Nieto MD [address] [place] [id number] Health Maintenance Due Date Last Done Comments DTAP/TDAP/TD VACCINES (1 - Tdap) 1974 PNEUMOCOCCAL VACCINE 50+ YEARS (1 of 2 - PCV) 03/05/19 74 COLORECTAL SCREENING 2000 Colorectal Cancer Screening 2000 FIT-DNA Q 3 years 2000 FIT/FOBT Q 1 year 2000 Flex Sig/CT Colonography Q 5 years 2000 ZOSTER VACCINE (1 of 2) 2005 INFLUENZA VACCINE (#1) 2025 RSV VACCINE (60+ or ) (1 - 1-dose 75+ series) 2030 Care Teams Human Resource Professional Relationship Specialty Start Date End Date Adilson Brewer PA [address] [place] [address] PCP - General 06/09/10
--- OUTSIDE RECORDS SUMMARY | 2025-05-29 03:30 | XMS_ITS | Clinical Summary ---
Author Organization [facility] Address [address] [place] [address] Care Team Providers Care Rn Teacher Name Role Phone Adilson Brewer Primary Care Provider Allergies No known active allergies Medications HYDROcodone-acetam inophen (NORCO) 5-325 mg Oral tabletIndications: Herniated lumbar intervertebral disc Take 1 Tab by mouth every 4 hours as needed. Active tiZANidine (ZANAFLEX) 4 mg Oral CapIndications:Her niated lumbar intervertebral disc Take 4 mg by mouth every 6 hours as needed. Active montelukast (SINGULAIR) 10 mg Oral tabletIndications: Herniated lumbar intervertebral disc Take 10 mg by mouth daily. Active ranitidine HCl (ZANTAC) 300 mg Oral CapIndications:Her niated lumbar intervertebral disc Take by mouth 2 times daily. Active amLODIPine (NORVASC) 5 mg Oral tabletIndications: Herniated lumbar intervertebral disc Take 5 mg by mouth daily. Active ALBUTEROL INHALATIONIndicati ons:Herniated lumbar intervertebral disc Take by inhalation. Active TIOTROPIUM BROMIDE (SPIRIVA WITH HANDIHALER INHALATION)Indicat ions:Herniated lumbar intervertebral disc Take by inhalation. Active metoprolol tartrate (LOPRESSOR) 50 mg Oral tabletIndications: Herniated lumbar intervertebral disc Take 50 mg by mouth 2 times daily. Active cilostazol (PLETAL) 100 mg Oral TabIndications:Her niated lumbar intervertebral disc Take 100 mg by mouth 2 times daily before meals. Active ibuprofen (MOTRIN) 600 mg Oral tabletIndications: Herniated lumbar intervertebral disc Take 600 mg by mouth every 6 hours as needed. Active lisinopril (PRINIVIL) 10 mg Oral tabletIndications: Herniated lumbar intervertebral disc Take 10 mg by mouth daily. Active aspirin (GILLIAN) 81 mg Oral TabIndications:Her niated lumbar intervertebral disc Take 81 mg by mouth daily. Active fluticasone-salmet gaby (ADVAIR DISKUS) 250-50 mcg/Dose Inhalation DsDvIndications:He rniated lumbar intervertebral disc Take 1 Puff by inhalation 2 times daily. 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 Gender Identity Not on file Sexual Orientation Not on file Last Filed Vital Signs Vital Sign Reading Time Taken Comments Blood Pressure 140/81 09/01/2010 2:10 PM CDT Pulse 70 09/01/2010 2:10 PM CDT Temperature 35.9 C (96.7 F) 09/01/2010 1:42 PM CDT Respiratory Rate 18 09/01/2010 2:10 PM CDT Oxygen Saturation 95% 09/01/2010 2:10 PM CDT Inhaled Oxygen Concentration - - Weight 76.2 kg (168 lb) 09/01/2010 1:42 PM CDT Height 170.2 cm (5' 7 ) 09/01/2010 1:42 PM CDT Body Mass Index 26.31 09/01/2010 1:42 PM CDT Plan of Treatment Health Maintenance Due Date Last Done Comments [...] ) (1 - 1-dose 75+ series) 2030 Insurance [place] Care Teams Rn Teacher Relationship Specialty Start Date End Date Adilson Brewer PA PCP - General 06/09/10
== END 2025-05-28 11:59 | disposition home or self-care (01) ==
PROVIDERS: Emergency Provider Family Medicine; PCP Nurse Practitioner Family
DX: J44.1 Chronic obstructive pulmonary disease with (acute) exacerbation (principal); Z11.52 Encounter for screening for COVID-19; F17.290 Nicotine dependence, other tobacco product, uncomplicated; Z86.73 Personal history of transient ischemic attack (TIA), and cerebral infarction without residual deficits
CPT/HCPCS: 36415; 71045; 80053; 81001; 85025; 87637; 93005; 99285

== ENCOUNTER 2025-06-12 20:31 | Inpatient (IN) | payer OTHER, MEDICAID, SELFPAY ==
[2025-06-12] VITALS (13 sets, daily range): BP systolic 83–127; BP diastolic 68–83; PULSE 91–100; RESP 18–30; TEMP 36.8; O2SAT 94–100; BMI 26.6; BMI 29.0
--- NOTE | 2025-06-12 20:36 | ECG_ITS ---
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 Measurements Intervals [place] Rate: 93 P: 70 PA: 146 QRS: 68 QRSD: 91 T: 72 QT: 339 QTc: 422 Interpretive Statements SINUS RHYTHM WITH SINUS ARRYTHMIA Compared to ECG 05/28/2025 08:13:32 SUPRAVENTRICULAR ECTOPIC BEATS NO LONGER PRESENT Electronically Signed On 06-13-2025 21:35:59 CDT by Justin Alvarado M.D. [email or web address]
--- NOTE | 2025-06-12 20:37 | ED_ITS ---
HPI - SOB/Dyspnea 2 General: Chief Complaint: Shortness of Breath/Dyspnea Stated Complaint: sob Time Seen by Provider: 06/12/25 20:31 Source: patient Mode of arrival: ambulatory Limitations: no limitations History of Present Illness: HPI Narrative: 70-year-old male has a history of COPD s tates been having increasing shortness of breath along with wheezing. Patient did receive Solu-Medrol and route and a breathing treatment. Still has coarse wheezing and tachypnea here. He states he has had an increased cough it has been slightly productive. Associated symptoms: Deny abdominal pain, chest pain, fever(s), nausea or vomiting Related Data Home Medications ?Medication ?Instructions ?Recorded ?Confirmed ipratropium 0.5 mg-albuterol 3 mg 3 ml inhalation QID PRN Shortness 09/16/20 02/02/25 (2.5 mg base)/3 mL nebulization Of Breath Or Wheezing soln lisinopril 40 mg tablet 40 mg PO DAILY 09/16/2005/22 albuterol sulfate 90 mcg/actuation 2 puff inhalation Q 6H PRN 06/25/23 02/02/25 aerosol inhaler Shortness Of Breath Or Wheez ing albuterol sulfate 2.5 mg/3 mL 2.5 mg inhalation TID 02/02/25 (0.083 %) solution for nebulization metoprolol tartrate 50 mg tablet 50 mg PO DAILY 02/02/25 naproxen 500 mg tablet 500 mg PO BID PRN Pain (Scal e 01/20/25 02/02/25 Score 4-6) Previous Rx's ?Medication ?Instructions ?Recorded budesonide 160 mcg-glycopyr 9 2 inh inhalation BID #10 .7 grams 03/05/24 mcg-formot 4.8 mcg/actuation HFA inhaler (Breztri Aerosphere) pantoprazole 40 mg tablet,delayed 40 mg PO BID 6 weeks #84 tabs 06/16/24 release amlodipine 5 mg tablet 5 mg PO BID #180 tabs albuterol sulfate 90 mcg/actuation 2 inh inhalation Q4 H PRN shortness 05/28/25 aerosol inhaler of breath or wheezing #18 gr ams ipratropium 0.5 mg-albuterol 3 mg 3 ml inhalation Q4H PRN shortness 05/28/25 (2.5 mg base)/3 mL nebulization of breath or wheezing #90 mL soln prednisone 20 mg tablet 20 mg PO TID #15 tabs Allergies Allergy/AdvReac Type Severity Reaction Status Date / Time No Known Allergies Allergy Verified 02/02/25 10:01 Review of Systems 2 Const: Denies: fever(s), chills, body aches or change in appetite ENMT: Denies: throat pain or dental pain Card: Denies: chest pain Resp: Reports: dyspnea, non-productive cough and wheezing GI: Denies: abdominal pain, nausea, vomiting or diarrhea Musc: Denies: neck pain or back pain Skin/Breast: Denies: rash Neuro: Denies: headache(s) PFSH ED 2 PFSH: Medical History (Updated 06/12/25 @ 22:19 by Willa Finley MD) Abnormal CT lung screening 04/2023, repeat scan 07/2023 without same findings History of myocardial perfusion scan 04/2023 no EKG changes, low probability coronary ischemia History of echocardiogram 03/2023 EF 55-60% History of PFTs 06/2023 severe obstructive disease with no significant change with bronchodilators Osteoarthritis GERD (gastroesophageal reflux disease) Hypertension COPD with emphysema CVA (cerebral vascular accident) right sided weakness, mild residual Surgical History History of coronary angioplasty ~2009 or earlier in [place], [place], had angioplasty of several vessels, no stents per him Social History Smoking and tobacco/nicotine status: current every day tobacco/nicotine user e- cigarettes E-Cigarette Details: e-cigarette E-cig/vape details: unknown if has nicotine- still smokes cigaretts but less Second hand smoke exposure: Yes Alcohol intake: current Alcohol intake frequency: 3 or more drinks per day Alcohol type: beer Substance/Drug Use: former Additional social history: Quit smoking in mid/late 2022 Lives independently: Yes Household members: none Marital status: Single service: Yes Current occupational status: disabled Do you think of yourself as: Straight/Heterosexual Current gender identity: Male Physical Exam 2 Const: COMMON NORMALS: patient oriented x3 GENERAL APPEARANCE: in distress HENMT: COMMON NORMALS: normocephalic and atraumatic HEAD & SCALP: n ormocephalic and atraumatic Eye: COMMON NORMALS: Equal, round and reactive pupils present and EOMs intact bilaterally PUPIL: Yes Equal, round and reactive pupils present Neck/C-Spine: COMMON NORMALS: full ROM and supple Chest: COMMONS NORMALS: normal inspection of the chest Resp: COMMON NORMALS: No retractions and No use of accessory muscles EFFORT & INSPECTION: Yes respiratory distress AUSCULTATION: wheezes Cardio: COMMON NORMALS: regular rate, regular rhythm and No murmurs present (Cardio) RATE: regular rate RHYTHM: regular rhythm GI: COMMON NORMALS: Normal to inspection, nondistended, normoactive bowel sounds present, Soft to palpation, non-tender and no masses PALPATION: Yes Soft to palpation Extremity: COMMON NORMALS: normal to inspection and full ROM Neuro: COMMON NORMALS: patient oriented x3, moves all extremities and no focal motor deficits Psych: COMMON NORMALS: mental status grossly normal, Normal thought process present and cooperative THOUGHT PROCESS: Normal thought process present Skin: COMMON NORMALS: no rashes or lesions noted and no wounds GENERAL SKIN EXAM: no rashes or lesions noted Course 2 Vital Signs: Vital signs: Vital Signs Temperature 98.2 F 06/12/25 20:33 Pulse Rate 97 06/12/25 22:13 Respiratory Rate 18 06/12/25 22:13 Blood Pressure 97/68 06/12/25 22:13 Pulse Oximetry 99 06/12/25 22:13 Oxygen Delivery Me thod Nasal Cannula 06/12/25 22:13 Oxygen Flow Rate 2 06/12/25 22:13 MDM - SOB/Dyspnea Medical Decision Making Patient presents here with shortness of breath COPD exacerbation he is had increased cough likely has a pneumonia he does have elevated white count hyponatremia and likely sepsis did give him sepsis bolus along with IV antibiotics spoke to hospitalist admit ICU. Medical Records I reviewed the patient's medical records. Lab Data I reviewed the patient's lab results. 06/12/25 21:19 06/12/25 21:19 Labs/Radiology: Radiology Impressions Chest X-Ray 06/12/25 20:37 IMPRESSION: See above. Laboratory Results WBC 18.89 10^3/uL (3.29-11.43) H 06/12/25 21:19 RBC 3.38 10^6/uL (3.85-5.65) L 06/12/25 21:19 Hgb 8.50 g/dL (11.27-16.99) L 06/12/25 21:19 Hct 27.6 % (37-53) L 06/12/25 21:19 MCV 81.7 fl (82-101) L 06/12/25 21:19 MCH 25.1 pg (27-33) L 06/12/25 21: MCHC 30.8 g/dL (30-55) 06/12/25 21:19 RDW 17.2 % (12.1-15.1) H 06/12/25 21:19 Plt Count 294 10^3/cmm (157-399) 06/12/25 21:19 MPV 9.5 fL (7.4-10.4) 06/12/25 21:19 Neut % (Auto) 85.3 % 06/12/25 21:19 Lymph % (Auto) 4.5 % 06/12/25 21:19 Taliaferro % (Auto) 8.7 % 06/12/25 21:19 Eos % (Auto) 0.1 % 06/12/25 21:19 Baso % (Auto) 0.1 % 06/12/25 21:19 Neut # (Auto) 16.14 10^3/uL (1.8-7.7) H 06/12/25 21:19 Lymph # (Auto) 0.9 10^3/uL (0.8-4.8) 06/12/25 21:19 Taliaferro # (Auto) 1.6 10^3/uL (0.2-0.9) H 06/12/25 21:19 Eos # (Auto) 0.0 10^3/uL (0.0-0.8) 06/12/25 21:19 Baso # (Auto) 0.0 10^3/uL (0.0-0.1) 06/12/25 21:19 Nucleated RBC % (auto) 0 % 06/12/25 21:19 Nucleated RBCs # 0.0 /100WBC 06/12/25 21:19 Specimen Type Arterial 06/12/25 21:03 Sample Site Radial, right 06/12/25 21:03 ABG pH 7.36 (7.35-7.45) 06/12/25 21:03 ABG pCO2 40.6 mmHg (35-45) 06/12/25 21:03 ABG pO2 122.0 mmHg (80.0-100.0) H 06/12/25 21:03 ABG HCO3 22.8 mmol/L (22-26) 06/12/25 21:03 ABG O2 Saturation > 99.1 06/12/25 21:03 ABG Base Excess -2.6 mmol/L (-2.0-2.0) L 06/12/25 21:03 Maurice Test Pos 06/12/25 21:03 Hematocrit 26.7 % (42-52) L 06/12/25 21:03 Hgb O2 Saturation 96.7 % (95-100) 06/12/25 21:03 Carboxyhemoglobin 1.4 %THgb (0.4-20.1) 06/12/25 21:03 Methemoglobin 1.3 % (0.4-1.5) 06/12/25 21:03 Total Hemoglobin 8.7 g/dL (14-18) L 06/12/25 21:03 Sodium 120.0 mmol/L (131-143) L 06/12/25 21:03 Potassium 5.4 mmol/L (3.5-5.0) H 06/12/25 21:03 Glucose 84.0 mg/dL (70-115) 06/12/25 21:03 Ionized Calcium 1.2 mmol/L (1.1-1.4) 06/12/25 21:03 O2 Delivery Device Nc 06/12/25 21:03 O2 Liters/Min 2.0 % 06/12/25 21:03 Wood Boatbuilder ID Nikos 06/12/25 21:03 Sodium 122 mmol/L (136-145) L 06/12/25 21:19 Potassium 5.6 mmol/L (3.5-5.1) H 06/12/25 21:19 Chloride 82 mmol/L (98-107) L 06/12/25 21:19 Carbon Dioxide 21 mmol/L (22-29) L 06/12/25 21:19 Anion Gap 24.6 (5-19) H 06/12/25 21:19 BUN 26 mg/dL (8-23) H 06/12/25 21:19 Creatinine 1.5 mg/dL (0.7-1.2) H 06/12/25 21:19 GFR Calculation 46.3 mL/min (90-130) L 06/12/25 21:19 Glucose 84 mg/dL (65-115) 06/12/25 21:19 Calculated Osmolality 258 mOsm/kg (285-295) L 06/12/25 21:19 Lactic Acid 3.9 mmol/L (0.5-2.2) H 06/12/25 21:19 Calcium 9.2 mg/dL (8.5-10.5) 06/12/25 21:19 Total Bilirubin 0.6 mg/dL (0.15-1.2) 06/12/25 21:19 AST 28 U/L (0-40) 06/12/25 21:19 ALT 22 U/L (0-41) 06/12/25 21:19 Alkaline Phosphatase 48 U/L (40-130) 06/12/25 21:19 NT-Pro-B Natriuret Pep 3232 pg/mL (0-125) H 06/12/25 21:19 Total Protein 7.1 g/dL (6.6-8.7) 06/12/25 21:19 Albumin 4.3 g/dL (3.5-5.2) 06/12/25 21:19 Globulin 2.8 g/dL (1.3-4.6) 06/12/25 21:19 All radiology interpretation(s) finalized by discharge EKG Data EKG 1: I personally reviewed and interpreted this EKG as follows: EKG Interpretation Date: 06/12/25 EKG interpretation time: 20:36 Interpretation: nsr hr [address] elevation qrs 91 qtc 399 Discharge Plan Discharge Patient Disposition: Admitted As Inpatient Clinical Impression: COPD with emphysema, Sepsis, Hyponatremia Condition: Stable Coding Level of Care Code ED Licensed Clinician for Brett Pope
--- NOTE | 2025-06-12 20:37 | XRR_ITS ---
PROCEDURE INFORMATION: Exam: XR Chest Exam date and time: 06/12/2025 9:06 PM Age: 70 years old Clinical indication: Shortness of breath; Additional info: SOB TECHNIQUE: Imaging protocol: Radiologic exam of the chest. Views: 1 view. COMPARISON: CR XR chest 1V portable [id number] 05/28/2025 8:31 AM FINDINGS: Airway: Narrowed appearance of the trachea at the cervicothoracic junction. This could relate to slight rightward orientation of the patient and overlying structures. The airway appeared unremarkable on recent chest radiograph from May 28. Correlate clinically. Lungs: Unremarkable lungs. Pleural spaces: Unremarkable. Heart/Mediastinum: Nonenlarged heart. Bones/joints: No acute fracture. XR/XR chest 1V portable [id number] IMPRESSION: See above.
--- OUTSIDE RECORDS SUMMARY | 2025-06-12 20:45 | XMS_ITS | Clinical Summary ---
Author Organization 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
--- OUTSIDE RECORDS SUMMARY | 2025-06-12 20:45 | XMS_ITS | Clinical Summary ---
Author Organization [facility] Address 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
[2025-06-12 21:15] LABS: ABG PCO2 40.6 mmHg (35-45); ABG PH Result 7.36 (7.35-7.45); Arterial Blood Gas Hematocrit 26.7 % (42-52); Blood Gas Allen Test Pos; Blood Gas LPM 2.0 %; Blood Gas Operator Identificat SAM; Blood Gas Sample Site Radial, right; Blood Gas Sample Type Arterial; Carboxyhemoglobin 1.4 %THgb (0.4-20.1); Glucose Level-ABG 84.0 mg/dL (70-115); HCO3 ABG 22.8 mmol/L (22-26); Ionized Calcium Level - ABG 1.2 mmol/L (1.1-1.4); Methemoglobin 1.3 % (0.4-1.5); Oxygen Saturation ABG > 99.1; PO2 ABG 122.0 mmHg (80.0-100.0); Potassium Level - ABG 5.4 mmol/L (3.5-5.0); Sodium Level - ABG 120.0 mmol/L (131-143)
[2025-06-12 21:44] LABS: Hematocrit 27.6 % (37-53); Hemoglobin 8.50 g/dL (11.27-16.99); Mean Corpuscular HGB Conc 30.8 g/dL (30-55); Mean Corpuscular Hemoglobin 25.1 pg (27-33); Mean Corpuscular Volume 81.7 fl (82-101); Nucleated Red Blood Cells % 0 %; Platelet Count 294 10^3/cmm (157-399); Red Blood Count 3.38 10^6/uL (3.85-5.65); White Blood Count 18.89 10^3/uL (3.29-11.43)
[2025-06-12] MEDS: cefTRIAXone 1,000 mg SDV 1000 MG IVP (21:51)
[2025-06-12 22:01] LABS: Lactic Sepsis W/Reflex 3.9 mmol/L (0.5-2.2)
[2025-06-12 22:04] LABS: Reflex Lactate Order REFLEX LACTIC ORDERD
[2025-06-12 22:11] LABS: Alanine Aminotransferase 22 U/L (0-41); Albumin Level 4.3 g/dL (3.5-5.2); Alkaline Phosphatase 48 U/L (40-130); Anion Gap 24.6 (5-19); Aspartate Amino Transferase 28 U/L (0-40); Blood Urea Nitrogen 26 mg/dL (8-23); Calcium 9.2 mg/dL (8.5-10.5); Carbon Dioxide 21 mmol/L (22-29); Chloride 82 mmol/L (98-107); Creatinine Clr Calc Pharmacy 45.6973; Globulin 2.8 g/dL (1.3-4.6); Glucose 84 mg/dL (65-115); NT Pro B Type Natriuretic Pept 3232 pg/mL (0-125); Osmolality Calculated 258 mOsm/kg (285-295); Potassium 5.6 mmol/L (3.5-5.1); Sodium 122 mmol/L (136-145); Total Protein 7.1 g/dL (6.6-8.7)
--- NOTE | 2025-06-12 22:18 | CTR_ITS ---
PROCEDURE INFORMATION: Exam: CTA Chest With Contrast Exam date and time: 06/12/2025 10:36 PM Age: 70 years old Clinical indication: Cough and shortness of breath; Cough with SOB and hypoxia TECHNIQUE: Imaging protocol: Computed tomographic angiography of the chest with contrast. Exam focused on the arteries. 3D rendering (Not supervised by radiologist): MIP and/or 3D reconstructed images were created by the technologist. Radiation optimization: All CT scans at this facility use at least one of these dose optimization techniques: automated exposure control; mA and/or kV adjustment per patient size (includes targeted exams where dose is matched to clinical indication); or iterative reconstruction. Contrast material: OMNI 350; Contrast volume: 58 ml; Contrast route: INTRAVENOUS (IV); COMPARISON: CT angio chest PE protcl [id number] 12/21/2024 12:24 AM RADIATION DOSE METRICS: Total DLP (mGy-cm): 381.11 FINDINGS: Pulmonary arteries: Pulmonary artery opacification is excellent. No pulmonary embolism. Great vessels off aortic arch: Aberrant right subclavian artery. Aorta: No thoracic aortic aneurysm. Calcified atherosclerosis. Lungs: Mild emphysema. Evidence of COPD. Small patchy opacity in the anterior right upper lobe lung. Pleural spaces: Unremarkable. Heart: Unremarkable. Coronary arteries: Coronary calcifications. Lymph nodes: No enlarged lymph nodes. Gallbladder and biliary ducts: Cholelithiasis. Bones/joints: No acute fracture. Soft tissues: Unremarkable. CT/CT angio chest PE protcl [id number] IMPRESSION: 1. No pulmonary embolism. 2. Evidence of emphysema and COPD. 3. Small anterior right upper lobe lung opacity could relate to pneumonia. COMMENTS: The presence of pulmonary emphysema on CT is an independent risk factor for lung cancer. In the absence of a history or active diagnosis of lung cancer, it is recommended that this patient with emphysema be evaluated for enrollment in a low dose CT lung cancer screening program.
[2025-06-12] MEDS: iohexol 350 mg/mL 500 mL Btl (per mL) IV (22:38)
[2025-06-12 22:53] LABS: Alveolar-Arterial Oxygen Gradi 5.0 mmHg (5-10); PO2 FiO2 Ratio Arterial Blood 435
[2025-06-12] MEDS: morphine 4 mg/mL SDV 1 mL 2 MG IVP (23:56)
[2025-06-13] VITALS (111 sets, daily range): BP systolic 59–126; BP diastolic 41–101; PULSE 86–110; RESP 15–29; TEMP 36.8–37.3; O2SAT 92–99
--- NOTE | 2025-06-13 00:21 | PM.HP ---
Providers/Chief Complaint Admitting Physician: Sriram Rodriguez MD Primary Care Provider: sOiris Quispe NP Chief Complaint: sob History of Present Illness Moisés Mann is a 70 year old male with history of alcohol and tobacco abuse comes in with shortness of breath. He states he has had coughing fits for months to years. He takes prednisone chronically and recently was on the taper 4 tablets daily for 4 days 3 tablets daily for 3 days etc. He states he is currently on 4 tablets. He takes Mucinex and sometimes it helps him bring up green phlegm but he has not for a few days. He states he lights 6 to 8 cigarettes to but claims he does not smoke them just puts them up to his lips and takes puffs. I commented that that is basically smoking cigarettes. Patient reports drinking 6-8 beers a day denies usage of any weed no drugs. 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 He is on 2 L/min oxygen at home nebulizers but no CPAP Review of Systems Narrative: General denies weight loss states he has gained 7 pounds he has had sweats but denies chills or fevers Cardiovascular no chest pain Respiratory positive for cough wheezing shortness of breath dyspnea on exertion Medications/Allergies Home Medications ?Medication ?Instructions ?Recorded ?Confirmed ?Last Taken ?Type ipratropium 0.5 mg-albuterol 3 mg 3 ml inhalation QID PRN Shortness 09/16/20 02/02/25 01/14/25 History (2.5 mg base)/3 mL nebulization Of Breath Or Wheezing soln lisinopril 40 mg tablet 40 mg PO DAILY 09/16/20 02/02/25 01/19/25 History albuterol sulfate 90 mcg/actuation 2 puff inhalation Q6H PRN 06/25/23 02/02/25 01/19/25 History aerosol inhaler Shortness Of Breath Or Wheezing budesonide 160 mcg-glycopyr 9 2 inh inhalation BID #10.7 grams 03/05/24 02/02/25 01/19/25 Rx mcg-formot 4.8 mcg/actuation HFA inhaler (Breztri Aerosphere) pantoprazole 40 mg tablet,delayed 40 mg PO BID 6 weeks #84 tabs 06/16/24 02/02/25 01/19/25 Rx release amlodipine 5 mg tablet 5 mg PO BID #180 tabs 09/17/24 02/02/25 01/19/25 Rx albuterol sulfate 2.5 mg/3 mL 2.5 mg inhalation TID 12/21/24 02/02/25 01/19/25 History (0.083 %) solution for nebulization metoprolol tartrate 50 mg tablet 50 mg PO DAILY 01/20/25 02/02/25 01/19/25 History naproxen 500 mg tablet 500 mg PO BID PRN Pain (Scale 01/20/25 02/02/25 01/19/25 History Score 4-6) albuterol sulfate 90 mcg/actuation 2 inh inhalation Q4H PRN shortness 05/28/25 Unknown Rx aerosol inhaler of breath or wheezing #18 grams ipratropium 0.5 mg-albuterol 3 mg 3 ml inhalation Q4H PRN shortness 05/28/25 Unknown Rx (2.5 mg base)/3 mL nebulization of breath or wheezing #90 mL soln prednisone 20 mg tablet 20 mg PO TID #15 tabs 05/28/25 Unknown Rx Allergies Allergy/AdvReac Type Severity Reaction Status Date / Time No Known Allergies Allergy Verified 02/02/25 10:01 PFSH Acute PFSH: Medical History (Updated 06/13/25 @ 00:27 by Sriram Rodriguez MD) Abnormal CT lung screening 04/2023, repeat scan 07/2023 without same findings History of myocardial perfusion scan 04/2023 no EKG changes, low probability coronary ischemia History of echocardiogram 03/2023 EF 55-60% History of PFTs 06/2023 severe obstructive disease with no significant change with bronchodilators Osteoarthritis GERD (gastroesophageal reflux disease) Hypertension COPD with emphysema CVA (cerebral vascular accident) right sided weakness, mild residual Surgical History History of coronary angioplasty ~2009 or earlier in [place], [place], had angioplasty of several vessels, no stents per him Social History (Updated 06/13/25 @ 00:26 by Sriram Rodriguez MD) Smoking and tobacco/nicotine status: current every day tobacco/nicotine user cigarettes Number of cigarettes per day: 6-10 and e-cigarettes E-Cigarette Details: e-cigarette E-cig/vape details: unknown if has nicotine- still smokes cigaretts but less Second hand smoke exposure: Yes Alcohol intake: current Alcohol intake frequency: 3 or more drinks per day Alcohol type: beer Alcohol use comment: 6 beers a day [place] Substance/Drug Use: former Additional social history: Still smokes 6 to 8 cigarettes a day wants full CODE STATUS lives alone this was discussed today 06/13/2025 with Sriram Rodriguez MD Lives independently: Yes Household members: none Marital status: Single service: Yes Current occupational status: 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 Do you think of yourself as: Straight/Heterosexual Current gender identity: Male Vitals/I&O/Wt Last Vital Signs Temp 98.2 F 06/12/25 20:33 Pulse 97 06/12/25 22:13 Resp 26 H 06/12/25 23:56 BP 97/68 06/12/25 22:13 Pulse Ox 95 06/12/25 23:56 O2 Del Method Nasal Cannula 06/12/25 22:13 O2 Flow Rate 2 06/12/25 22:13 FiO2 30 06/12/25 23:54 06/12/25 06/12/25 06/13/25 14:59 22:59 06:59 Intake Total 449.55 / 449.55 250 / 699.55 Balance 449.55 / 449.55 250 / 699.55 Weight last 48 hrs Weight 81.465 kg Weight 77.111 kg Physical Exam Narrative: General well-developed well-nourished male in obvious respiratory distress tachypneic when talking off BiPAP and tachypneic on BiPAP. He is able to give a history but is short of breath. CV regular borderline tachycardic rhythm Lungs poor air movement with prolonged expiratory phase and mild wheezes Abdomen positive bowel tones soft nontender Calves trace ankle edema Data 06/12/25 21:19 06/12/25 21:19 Micro: Microbiology 06/12/25 21:19 Blood Culture - Preliminary Blood SPECIMEN COLLECTED 06/12/25 21:28 Blood Culture - Preliminary Blood SPECIMEN COLLECTED A&P Assessment and plan 1. Atypical pneumonia: Continue treatment with azithromycin and Rocephin. Steroids will be Decadron 4 mg twice a day continue with DuoNebs. 2. Hyponatremia: Patient with acute kidney injury and hyponatremia suspected dehydration with recent pneumonia and shortness of breath. He received sepsis fluid boluses 3. Sepsis: As above 4. CAD (coronary artery disease): Stable denies chest pain 5. COPD with emphysema: CT scan abnormal with emphysema. Cannot exclude atypical pneumonia PDMP PDMP Reviewed: Not Reviewed Attestations Medical Necessity Statement*: Patient to the hospital with atypical pneumonia and COPD exacerbation will require greater than 2 midnights in hospital Coding Level of Care Code 51714 Diagnoses Atypical pneumonia J18.9 Hyponatremia E87.1 Sepsis A41.9 CAD (coronary artery disease) I25.10 COPD with emphysema J43.9 Time Spent (min) 70
[2025-06-13 00:37] LABS: Lactic Acid level (Lactate) 3.0 mmol/L (0.5-2.2)
[2025-06-13] MEDS: LORazepam 1 MG/0.5 ML injection 2 MG IVP ×3 (00:53→06:38)
[2025-06-13] MEDS: thiamine 100 mg/mL 2mL SDV IM (00:54)
--- NOTE | 2025-06-13 02:48 | PC.NURSE ---
Jose J Not Given: Unable to give PO meds at this time. Pt is restless and agitated. When he pulls his BIPAP off his SpO2 drops to 80%. See MAR for CIWA meds given. Dr. Rodriguez made aware @8715.
[2025-06-13] MEDS: methylPREDNISolone sod succ 125 mg/2 mL INJ 80 MG IVP ×2 (02:57→10:42)
[2025-06-13] MEDS: norepinephrine 4 MG/250 ML BAG 7.5 MG IV (04:30)
--- NOTE | 2025-06-13 09:42 | ECG_ITS ---
[facility]: 2025-[facility]13 Pat Name: Moisés Mann Department: Room: [facility] Gender: Male Web Knitter: : 1955 Requested By: Alex Roberts Order Number: [id number] Mo MD: Justin Alvarado M.D. Measurements Intervals [place] Rate: 104 P: 75 RI: 125 QRS: 71 QRSD: 88 T: 46 QT: 331 QTc: 437 Interpretive Statements SINUS TACHYCARDIA MINIMAL ST DEPRESSION [0.025+ mV ST DEPRESSION] ABNORMAL RHYTHM ECG Compared to ECG 06/12/2025 20:36:33 NO SIGNIFICANT CHANGE Electronically Signed On 06-13-2025 21:46:46 CDT by Justin Alvarado M.D. [email or web address]
[2025-06-13] MEDS: dexmedeTOMIDine 0.9 % NaCL 400 MCG/100 ML PREMIX IV (09:46)
[2025-06-13 10:01] LABS: ABG PCO2 37.5 mmHg (35-45); ABG PH Result 7.37 (7.35-7.45); Arterial Blood Gas Hematocrit 23.7 % (42-52); Blood Gas Allen Test Pos; Blood Gas Operator Identificat GD; Blood Gas Sample Site Radial, right; Blood Gas Sample Type Arterial; HCO3 ABG 21.7 mmol/L (22-26); PO2 ABG 84.3 mmHg (80.0-100.0); PO2 FiO2 Ratio Arterial Blood 281
[2025-06-13 10:27] LABS: Troponin(5th) Baseline 20 ng/L (0-15)
[2025-06-13 10:28] LABS: Lactate (Lactic Acid level) 1.3 mmol/L (0.5-2.2)
[2025-06-13 10:29] LABS: Alanine Aminotransferase 18 U/L (0-41); Albumin Level 3.7 g/dL (3.5-5.2); Alkaline Phosphatase 39 U/L (40-130); Anion Gap 18.8 (5-19); Aspartate Amino Transferase 25 U/L (0-40); Blood Urea Nitrogen 21 mg/dL (8-23); Calcium 7.9 mg/dL (8.5-10.5); Carbon Dioxide 20 mmol/L (22-29); Chloride 95 mmol/L (98-107); Creatinine Clr Calc Pharmacy 70.2559; Globulin 2.2 g/dL (1.3-4.6); Glucose 110 mg/dL (65-115); Osmolality Calculated 272 mOsm/kg (285-295); Potassium 4.8 mmol/L (3.5-5.1); Sodium 129 mmol/L (136-145); Total Protein 5.9 g/dL (6.6-8.7)
[2025-06-13 10:35] LABS: Procalcitonin 0.09 ng/mL (0-0.5)
[2025-06-13 11:01] LABS: Glucose Urine UA Negative (Normal); Nitrate Urine Negative (Negative); Specific Gravity, Urine 1.020 (1.005-1.030)
[2025-06-13 11:09] LABS: Add Urine Microscopic? YES; UA Manual Slide Review YES
[2025-06-13] MEDS: pantoprazole 40 mg SDV IVP ×2 (11:28→22:37)
[2025-06-13 12:04] LABS: Troponin 5 2HR 19.85 ng/L (0-15)
[2025-06-13 12:06] LABS: Troponin 5 2HR Delta -0.15 ABS# (0-10)
--- NOTE | 2025-06-13 14:06 | P.PN_ITS ---
Subjective 2 Subjective: Patient was seen this morning, currently is alert oriented x 1, to person, not to place, not to time, he remains quite confused today is on Precedex, currently on BiPAP 30% FiO2, currently is on 2 Levophed, no family members at bedside Vitals/I&O/Wt Last Vital Signs Temp 98.3 F 06/13/25 07:42 Pulse 96 06/13/25 13:57 Resp 23 H 06/13/25 13:15 BP 86/56 06/13/25 13:15 Pulse Ox 97 06/13/25 13:18 O2 Del Method Nasal Cannula 06/13/25 13:15 O2 Flow Rate 2 06/13/25 13:15 FiO2 30 06/13/25 13:18 06/12/25 06/13/25 06/13/25 22:59 06:59 14:59 Intake Total 449.55 / 449.55 2799.375 / 3248.925 881.227 / 881.227 Output Total 875 / 875 650 / 650 Balance 449.55 / 449.55 1924.375 / 2373.925 231.227 / 231.227 Weight last 48 hrs Weight 84.958 kg Weight 81.465 kg Weight 77.111 kg Physical Exam 2 Const: COMMON NORMALS: no acute distress and patient oriented x3 Eye: COMMON NORMALS: Equal, round and reactive pupils present and EOMs intact bilaterally PUPIL: Yes Equal, round and reactive pupils present Resp: COMMON NORMALS: normal respiratory effort, No retractions and No use of accessory muscles AUSCULTATION: crackles and wheezes Cardio: COMMON NORMALS: regular rate, regular rhythm, S1 normal heart sound present and S2 normal heart sound present RATE: regular rate RHYTHM: r egular rhythm HEART SOUNDS: S1 normal heart sound present and S2 normal heart sound present GI: COMMON NORMALS: Normal to inspection, nondistended, normoactive bowel sounds present and non-tender Extremity: COMMON NORMALS: no calf tenderness and no pedal edema Neuro: COMMON NORMALS: patient oriented x3, CN's II-XII intact bilaterally and moves all extremities Psych: COMMON NORMALS: mental status grossly normal Urinary Catheter Management: Dumont: Cath Placed During This Visit: yes Reason for Continuing Indwelling Catheter: Accurate Measurement of Urinary Output in Critically Ill Patients Urinary Catheter Date of Insertion: 06/12/25 Urinary Catheter Time of Insertion: 02:50 Data 06/12/25 21:19 06/13/25 10:00 Micro: Microbiology 06/12/25 21:19 Blood Culture - Preliminary Blood SPECIMEN COLLECTED 06/12/25 21:28 Blood Culture - Preliminary Blood SPECIMEN COLLECTED A&P Assessment and plan 1. Hyponatremia: 2. Sepsis: 3. CAD (coronary artery disease): 4. COPD with emphysema: 5. Lactic acidosis: 6. NSTEMI (non-ST elevated myocardial infarction): 7. Iron deficiency anemia: 8. Acute hypoxic respiratory failure: 9. Acute encephalopathy: 10. Alcohol withdrawal delirium: 11. Pneumonia: 12. Septic shock: Plan: Acute hypoxic respiratory failure - Multifactorial - COPD exacerbation - Secondary to pneumonia - With septic shock Plan -Continue BiPAP therapy -Currently Levophed at 2, maintain MAP greater than 65 -Monitor urine output -Monitor respiratory status closely -DuoNeb -Budesonide -Solu-Medrol -Broaden antibiotic coverage to vancomycin -Zosyn -Full code -Lovenox for DVT prophylaxis Sepsis, septic shock secondary to pneumonia Lactic acidosis, Acute encephalopathy -Multifactorial from hypoxemia, pneumonia -Component of hyponatremia -Alcohol withdrawal -Possible Warnicke's encephalopathy? -Neurochecks -CIWA protocol -Aspiration precautions - Currently on Precedex for agitation Alcohol withdrawal -CIWA protocol -Will place on scheduled thiamine 200 mg IV every 8 hours - Precedex History of CAD Acute on chronic anemia, monitor - Protonix Hyponatremia -Likely beers [place] PDMP PDMP Reviewed: Not Reviewed Attestations 2 Medical Necessity Statement*: Patient requires hospitalization, inpatient, greater than 2 minutes for acute hypoxic respiratory failure, COPD, pneumonia, septic shock, alcohol withdrawal Coding Level of Care Code Critical Care >/= 30 minutes Critical care time (in minutes): 40 The high probability of a clinically significant, sudden or life threatening deterioration, as referenced in this documentation, required my full and direct attention, intervention and personal management. The critical care time shown is in addition to time spent performing any reported separately billable procedures and includes the following: [x] Data and vital sign review and interpretation [x ] Patient assessment, examination and intervention [x] Medication orders and management [x] Patient/Family updates as able [x] Care Coordination and Documentation. Diagnoses Hyponatremia E87.1 Sepsis A41.9 CAD (coronary artery disease) I25.10 COPD with emphysema J43.9 Lactic acidosis E87.20 NSTEMI (non-ST elevated myocardial infarction) I21.4 Iron deficiency anemia D50.9 Acute hypoxic respiratory failure J96.01 Acute encephalopathy G93.40 Alcohol withdrawal delirium F10.931 Pneumonia J18.9 Septic shock A41.9; R65.21
--- NOTE | 2025-06-13 14:34 | PHA.VACGOAL ---
Vancomycin Goal - Goal Vancomycin Goal:: 15-20 mg/L Vancomycin Indication:: Pneumonia - Therapy Current therapy:: Pip/Tazo Day of therpy:: Day []of [] . 1 Actual body weight (kg): 187 lb 4.8 oz - Data Labs: WBC 18.89 10^3/uL (3.29-11.43) H 06/12/25 21:19 RBC 3.38 10^6/uL (3.85-5.65) L 06/12/25 21:19 Hgb 8.50 g/dL (11.27-16.99) L 06/12/25 21:19 Hct 27.6 % (37-53) L 06/12/25 21:19 MCV 81.7 fl (82-101) L 06/12/25 21: MCH 25.1 pg (27-33) L 06/12/25 21:19 MCHC 30.8 g/dL (30-55) 06/12/25 21:19 RDW 17.2 % (12.1-15.1) H 06/12/25 21:19 Sodium 129 mmol/L (136-145) L 06/13/25 10:00 Potassium 4.8 mmol/L (3.5-5.1) 06/13/25 10:00 Chloride 95 mmol/L (98-107) L 06/13/25 10:00 Carbon Dioxide 20 mmol/L (22-29) L 06/13/25 10:00 Anion Gap 18.8 (5-19) 06/13/25 10:00 BUN 21 mg/dL (8-23) 06/13/25 10:00 Creatinine 1.0 mg/dL (0.7-1.2) 06/13/25 10:00 GFR Calculation 73.9 mL/min (90-130) L 06/13/25 10:00 Treatment plan:: new consult
[2025-06-13] MEDS: thiamine 100 mg/mL 2mL SDV 200 MG IVP ×2 (14:53→22:37)
[2025-06-13] MEDS: morphine 4 mg/mL SDV 1 mL 2 MG IVP (16:12)
[2025-06-13] MEDS: piperacillin-tazobactam 3.375 GM in sodium chloride 0.9% (plus) 50 ML IV ×2 (16:13→23:52)
[2025-06-13 16:48] LABS: Troponin 5 6HR 21.38 ng/L (0-15); Troponin 5 6HR Delta 1.38 ng/L (0-12)
[2025-06-13] MEDS: dexmedeTOMIDine 0.9 % NaCL 400 MCG/100 ML PREMIX 10.62 MCG IV (22:18)
[2025-06-13] MEDS: methylPREDNISolone sod succ 125 mg/2 mL INJ 40 MG IVP (22:37)
[2025-06-14] VITALS (101 sets, daily range): BP systolic 80–155; BP diastolic 52–119; PULSE 88–116; RESP 15–26; TEMP 37.2–37.7; O2SAT 95–100
[2025-06-14] MEDS: methylPREDNISolone sod succ 125 mg/2 mL INJ 40 MG IVP ×3 (02:59→19:29)
[2025-06-14] MEDS: dexmedeTOMIDine 0.9 % NaCL 400 MCG/100 ML PREMIX 10.62 MCG IV (04:34)
[2025-06-14] MEDS: thiamine 100 mg/mL 2mL SDV 200 MG IVP ×3 (05:40→21:36)
[2025-06-14 05:57] LABS: Hematocrit 25.8 % (37-53); Hemoglobin 7.90 g/dL (11.27-16.99); Mean Corpuscular HGB Conc 30.6 g/dL (30-55); Mean Corpuscular Hemoglobin 26.2 pg (27-33); Mean Corpuscular Volume 85.4 fl (82-101); Nucleated Red Blood Cells % 0 %; Platelet Count 224 10^3/cmm (157-399); Red Blood Count 3.02 10^6/uL (3.85-5.65); White Blood Count 9.16 10^3/uL (3.29-11.43)
[2025-06-14 06:33] LABS: Anion Gap 18.2 (5-19); Blood Urea Nitrogen 17 mg/dL (8-23); Calcium 8.3 mg/dL (8.5-10.5); Carbon Dioxide 20 mmol/L (22-29); Chloride 99 mmol/L (98-107); Creatinine Clr Calc Pharmacy 72.6056; Glucose 135 mg/dL (65-115); Magnesium 2.2 mg/dL (1.7-2.3); Osmolality Calculated 280 mOsm/kg (285-295); Potassium 4.2 mmol/L (3.5-5.1); Sodium 133 mmol/L (136-145); Thyroid Stimulating Hormone 0.50 uIU/mL (0.27-4.20)
[2025-06-14] MEDS: piperacillin-tazobactam 3.375 GM in sodium chloride 0.9% (plus) 50 ML IV ×3 (08:07→23:46)
[2025-06-14] MEDS: multivitamin therapeutic Tablet 1 TAB PO (08:18)
[2025-06-14] MEDS: pantoprazole 40 mg SDV IVP ×2 (11:10→23:46)
--- NOTE | 2025-06-14 12:22 | P.PN_ITS ---
Subjective 2 Subjective: Patient was seen this morning, he is much more alert and awake, can follow commands, alert to person, to place, not to time, does report shortness of breath, does have active coughing, productive cough, no abdominal pain, no nausea, no vomiting, does report constipation Vitals/I&O/Wt Last Vital Signs Temp 99.0 F 06/14/25 08:45 Pulse 99 06/14/25 12:00 Resp 17 06/14/25 12:00 BP 93/66 06/14/25 12:00 Pulse Ox 97 06/14/25 12:00 O2 Del Method Nasal Cannula 06/14/25 12:00 O2 Flow Rate 2 06/13/25 13:15 FiO2 30 06/14/25 08:07 06/13/25 06/14/25 06/14/25 22:59 06:59 14:59 Intake Total 519.816 / 1401.043 524.721 / 1925.764 50 / 50 Output Total 400 / 1050 850 / 1900 Balance 119.816 / 351.043 -325.279 / 25.764 50 / 50 Weight last 48 hrs Weight 91 kg Weight 91 kg Weight 84.958 kg Weight 81.465 kg Weight 77.111 kg Physical Exam 2 Const: COMMON NORMALS: no acute distress ORIENTATION/CONSCIOUSNESS: Yes awake, Yes oriented to person and Yes oriented to place; not oriented to time Resp: COMMON NORMALS: normal respiratory effort, No retractions and No use of accessory muscles AUSCULTATION: crackles and wheezes Cardio: COMMON NORMALS: regular rate, regular rhythm, S1 normal heart sound present and S2 normal heart sound present RATE: regular rate RHYTHM: r egular rhythm HEART SOUNDS: S1 normal heart sound present and S2 normal heart sound present GI: OTHER: Abdomen is soft, distended, good bowel sounds, no guarding, rebound, rigidity, Extremity: COMMON NORMALS: no pedal edema Neuro: SENSORIUM/ORIENTATION: Yes oriented to person, Yes oriented to place and No oriented to time Psych: COMMON NORMALS: mental status grossly normal OTHER: Bilateral upper extremity tremor Urinary Catheter Management: Dumont: Cath Placed During This Visit: yes Reason for Continuing Indwelling Catheter: Accurate Measurement of Urinary Output in Critically Ill Patients Urinary Catheter Date of Insertion: 06/12/25 Urinary Catheter Time of Insertion: 02:50 Data 06/14/25 04:04 06/14/25 04:04 Micro: Microbiology 06/12/25 21:19 Blood Culture - Preliminary Blood NEGATIVE TO DATE 06/12/25 21:28 Blood Culture - Preliminary Blood NEGATIVE TO DATE A&P Assessment and plan 1. Hyponatremia: 2. Sepsis: 3. CAD (coronary artery disease): 4. COPD with emphysema: 5. Lactic acidosis: 6. NSTEMI (non-ST elevated myocardial infarction): 7. Iron deficiency anemia: 8. Acute hypoxic respiratory failure: 9. Acute encephalopathy: 10. Alcohol withdrawal delirium: 11. Pneumonia: 12. Septic shock: Plan: Acute hypoxic respiratory failure - Multifactorial - COPD exacerbation - Secondary to pneumonia - With septic shock Plan -Continue BiPAP therapy -Currently Levophed at 2, maintain MAP greater than 65, currently off Levophed -Monitor urine output -Monitor respiratory status closely -DuoNeb -Budesonide -Solu-Medrol -Broaden antibiotic coverage to vancomycin -Zosyn -Full code -Lovenox for DVT prophylaxis Sepsis, septic shock secondary to pneumonia Lactic acidosis, Acute encephalopathy -Multifactorial from hypoxemia, pneumonia -Component of hyponatremia -Alcohol withdrawal -Possible Warnicke's encephalopathy? Currently on thiamine -Neurochecks -CIWA protocol -Aspiration precautions - Currently on Precedex for agitation Alcohol withdrawal -CIWA protocol -Will place on scheduled thiamine 200 mg IV every 8 hours - Precedex History of CAD Acute on chronic anemia, monitor - Protonix Hyponatremia -Likely beers [place] Plan for today, bowel regimen, lactulose, IV antibiotics, IV steroids, IV antibiotics, PT OT, currently on Precedex drip, try dysphagia level 4 diet, aspiration precautions PDMP PDMP Reviewed: Not Reviewed Attestations 2 Medical Necessity Statement*: Patient requires hospitalization for acute hypoxic respiratory failure, COPD, pneumonia, septic shock, encephalopathy, alcohol withdrawal Diagnoses Hyponatremia E87.1 Sepsis A41.9 CAD (coronary artery disease) I25.10 COPD with emphysema J43.9 Lactic acidosis E87.20 NSTEMI (non-ST elevated myocardial infarction) I21.4 Iron deficiency anemia D50.9 Acute hypoxic respiratory failure J96.01 Acute encephalopathy G93.40 Alcohol withdrawal delirium F10.931 Pneumonia J18.9 Septic shock A41.9; R65.21
[2025-06-14] MEDS: morphine 4 mg/mL SDV 1 mL 2 MG IVP ×2 (12:45→21:36)
[2025-06-14 13:00] LABS: Hematocrit 24.6 % (37-53); Hemoglobin 7.30 g/dL (11.27-16.99); Mean Corpuscular HGB Conc 29.7 g/dL (30-55); Mean Corpuscular Hemoglobin 25.3 pg (27-33); Mean Corpuscular Volume 85.4 fl (82-101); Nucleated Red Blood Cells % 0 %; Platelet Count 210 10^3/cmm (157-399); Red Blood Count 2.88 10^6/uL (3.85-5.65); White Blood Count 7.47 10^3/uL (3.29-11.43)
[2025-06-14 13:25] LABS: Ammonia 24 umol/L (16-60)
[2025-06-14] MEDS: lactulose oral liq 20 gm/30 mL UDC PO ×2 (13:26→23:46)
[2025-06-15] VITALS (32 sets, daily range): BP systolic 107–151; BP diastolic 71–101; PULSE 92–132; RESP 15–27; TEMP 36.7–36.9; O2SAT 89–98
[2025-06-15] MEDS: methylPREDNISolone sod succ 125 mg/2 mL INJ 40 MG IVP ×3 (03:13→19:09)
[2025-06-15 04:23] LABS: Hematocrit 27.3 % (37-53); Hemoglobin 8.30 g/dL (11.27-16.99); Mean Corpuscular HGB Conc 30.4 g/dL (30-55); Mean Corpuscular Hemoglobin 26.3 pg (27-33); Mean Corpuscular Volume 86.7 fl (82-101); Nucleated Red Blood Cells % 0 %; Platelet Count 216 10^3/cmm (157-399); Red Blood Count 3.15 10^6/uL (3.85-5.65); White Blood Count 7.29 10^3/uL (3.29-11.43)
[2025-06-15 04:44] LABS: Anion Gap 11.6 (5-19); Blood Urea Nitrogen 22 mg/dL (8-23); Calcium 8.4 mg/dL (8.5-10.5); Carbon Dioxide 25 mmol/L (22-29); Chloride 105 mmol/L (98-107); Creatinine Clr Calc Pharmacy 66.0051; Glucose 129 mg/dL (65-115); Osmolality Calculated 291 mOsm/kg (285-295); Potassium 3.6 mmol/L (3.5-5.1); Sodium 138 mmol/L (136-145)
[2025-06-15] MEDS: thiamine 100 mg/mL 2mL SDV 200 MG IVP ×3 (05:35→22:36)
[2025-06-15] MEDS: piperacillin-tazobactam 3.375 GM in sodium chloride 0.9% (plus) 50 ML IV ×2 (08:34→15:51)
[2025-06-15] MEDS: multivitamin therapeutic Tablet 1 TAB PO (08:34)
[2025-06-15] MEDS: pantoprazole 40 mg SDV IVP ×2 (12:26→22:38)
--- NOTE | 2025-06-15 12:28 | PC.NURSE ---
lactulose held due to constant liquid bowel movements. provider notified.
--- NOTE | 2025-06-15 13:24 | P.PN_ITS ---
Subjective 2 Subjective: No new complaints today. Patient is off Precedex. CIWA score currently at 0 this morning. Noted to have sinus tachycardia with heart rate between 110 to 120/min. Medications: Reviewed: Yes Vitals/I&O/Wt Last Vital Signs Temp 98.1 F 06/15/25 08:11 Pulse 126 H 06/15/25 12:00 Resp 27 H 06/15/25 12:00 BP 134/81 06/15/25 12:00 Pulse Ox 93 06/15/25 12:00 O2 Del Method Nasal Cannula 06/15/25 08:00 O2 Flow Rate 2 06/15/25 08:00 FiO2 28 06/15/25 03:49 06/14/25 06/15/25 06/15/25 22:59 06:59 14:59 Intake Total 538.158 / 648.673 300 / 948.673 530 / 530 Output Total 850 / 850 Balance 538.158 / 648.673 -550 / 98.673 530 / 530 Weight last 48 hrs Weight 85.049 kg Weight 85.049 kg Weight 91 kg Weight 91 kg Physical Exam 2 Narrative: General: No acute distress, AO x3 HEENT: PERRLA, pupils bilaterally equal and reactive, pallors not present Chest: Normal vesicular breath sounds, no added sounds, equal good air entry bilaterally CVS: S1-S2 regular, no murmurs, no tachycardia, no gallops, no rubs Abdomen: Soft, nontender, no organomegaly, bowel sounds present Neuro: No focal deficits, no facial deformity, AO x3, power 5/5 in all limbs Urinary Catheter Management: Dumont: Cath Placed During This Visit: yes Reason for Continuing Indwelling Catheter: Accurate Measurement of Urinary Output in Critically Ill Patients Urinary Catheter Date of Insertion: 06/12/25 Urinary Catheter Time of Insertion: 02:50 Data 06/15/25 03:39 06/15/25 03:39 Micro: Microbiology 06/13/25 10:50 Urine Culture - Preliminary Urine,Clean Catch A&P Assessment and plan 1. Hyponatremia: 2. Sepsis: 3. CAD (coronary artery disease): 4. Pulmonary emphysema, unspecified emphysema type: 5. Lactic acidosis: 6. NSTEMI (non-ST elevated myocardial infarction): 7. Iron deficiency anemia: 8. Acute hypoxic respiratory failure: 9. Acute encephalopathy: 10. Alcohol withdrawal delirium: 11. Pneumonia: 12. Septic shock: Plan: Acute hypoxic respiratory failure - Multifactorial - COPD exacerbation - Secondary to pneumonia - With septic shock Plan -Continue BiPAP therapy -Currently Levophed at 2, maintain MAP greater than 65, currently off Levophed -Monitor urine output -Monitor respiratory status closely -DuoNeb -Budesonide -Solu-Medrol -Broaden antibiotic coverage to vancomycin -Zosyn -Full code -Lovenox for DVT prophylaxis Sepsis, septic shock secondary to pneumonia Lactic acidosis, Acute encephalopathy -Multifactorial from hypoxemia, pneumonia -Component of hyponatremia -Alcohol withdrawal -Possible Warnicke's encephalopathy? Currently on thiamine -Neurochecks -CIWA protocol -Aspiration precautions - Currently on Precedex for agitation Alcohol withdrawal -CIWA protocol -Will place on scheduled thiamine 200 mg IV every 8 hours - Precedex History of CAD Acute on chronic anemia, monitor - Protonix Hyponatremia -Likely beers [place] Plan for today, bowel regimen, lactulose, IV antibiotics, IV steroids, IV antibiotics, PT OT, currently on Precedex drip, try dysphagia level 4 diet, aspiration precautions June 15, 2025 70-year-old male with a history of alcohol abuse presented to the hospital on 06/13/2025 with shortness of breath. Apparently he also had altered mental status at home. He was recently on a prednisone taper as an outpatient. He was admitted to the hospital due to concern for pneumonia. CT of the chest showed a small right lower lobe opacity however this appears to be out of proportion to his symptoms. For COPD exacerbation he is receiving steroids and scheduled nebulization. He was on Precedex for acute alcohol withdrawal. Antibiotics were changed from ceftriaxone and azithromycin to piperacillin/tazobactam and vancomycin yesterday. Will discontinue vancomycin today. There was concern for potential aspiration therefore speech therapy assessment has been ordered. Modified barium swallow was recommended which will be completed tomorrow. Patient is off Precedex today. Will continue CIWA monitoring and as needed Ativan as needed. His mental status is much improved today. He has been able to be weaned off of Precedex. He is alert awake oriented x 3. Patient reports prior episodes of hepatic encephalopathy requiring hospital admission though ammonia is currently normal on this visit. Discontinue lactulose as patient has not developed diarrhea and ammonia is normal. Transfer out of ICU to [facility] today. Add metoprolol 12.5 mg p.o. twice daily to for sinus tachycardia with heart rate up to 120/min. Liver ultrasound to assess for cirrhosis and portal hypertension. D/c catalino PDMP PDMP Reviewed: Not Reviewed Attestations 2 Medical Necessity Statement*: Continued need for IV antibiotics, CIWA score monitoring, barium swallow tomorrow Coding Level of Care Code Acute Code for Chg Fwd High MDM includes number and complexity of problems actively addressed during encounter, amount and/or complexity of data reviewed/ordered and described risk of complication, morbidity or mortality of management as documented Diagnoses Hyponatremia E87.1 Sepsis A41.9 CAD (coronary artery disease) I25.10 Pulmonary emphysema, unspecified emphysema type J43.9 Emphysema type: unspecified Lactic acidosis E87.20 NSTEMI (non-ST elevated myocardial infarction) I21.4 Iron deficiency anemia D50.9 Acute hypoxic respiratory failure J96.01 Acute encephalopathy G93.40 Alcohol withdrawal delirium F10.931 Pneumonia J18.9 Septic shock A41.9; R65.21
--- NOTE | 2025-06-15 14:24 | PC.SOCIAL ---
*IMM* Completed, initialed, dated and placed in chart, Copy gave to the patient.
--- NOTE | 2025-06-15 15:08 | PC.SLP ---
MBS attempted, however, there was an issue with the video cable/unit and images were unable to be recorded. Study was discontinued. Unit will need to be repaired prior to completing study.
[2025-06-15] MEDS: morphine 4 mg/mL SDV 1 mL 2 MG IVP (15:51)
--- NOTE | 2025-06-15 16:41 | USR_ITS ---
PROCEDURE INFORMATION: Exam: US Abdomen, Limited; Right Upper Quadrant Exam date and time: 06/15/2025 5:06 PM Age: 70 years old Clinical indication: Screening exam; Other: Cirrhosis; Additional info: Assess for cirrhosis, portal HTN TECHNIQUE: Imaging protocol: Real time ultrasound of the abdomen with image documentation. Limited exam focused on the right upper quadrant. COMPARISON: CT angio chest PE protcl [id number] 06/12/2025 10:36 PM FINDINGS: Liver: Normal. No masses. Smooth liver contour. Gallbladder: No gallstones. There is no gallbladder wall thickening. Possible sludge versus artifact in the gallbladder. Biliary ducts: Normal. No stones. No dilation. Pancreas: Evaluation of the pancreas is limited due to overlying bowel gas. Right kidney: Normal. No mass. No hydronephrosis. Portal venous: The main portal vein is patent. US/US liver [id number] IMPRESSION: No acute findings.
[2025-06-15 20:51] LABS: MRSA PCR OZH (swab) NOT DETECTED (Negative)
[2025-06-16] VITALS (21 sets, daily range): BP systolic 121–189; BP diastolic 78–98; PULSE 70–101; RESP 16–21; TEMP 36.2–36.7; O2SAT 94–99
[2025-06-16] MEDS: piperacillin-tazobactam 3.375 GM in sodium chloride 0.9% (plus) 50 ML IV ×3 (00:16→16:50)
[2025-06-16 03:31] LABS: Hematocrit 29.7 % (37-53); Hemoglobin 8.80 g/dL (11.27-16.99); Mean Corpuscular HGB Conc 29.6 g/dL (30-55); Mean Corpuscular Hemoglobin 25.6 pg (27-33); Mean Corpuscular Volume 86.3 fl (82-101); Nucleated Red Blood Cells % 0 %; Platelet Count 229 10^3/cmm (157-399); Red Blood Count 3.44 10^6/uL (3.85-5.65); White Blood Count 7.83 10^3/uL (3.29-11.43)
[2025-06-16 04:00] LABS: Anion Gap 11.9 (5-19); Blood Urea Nitrogen 22 mg/dL (8-23); Calcium 9.0 mg/dL (8.5-10.5); Carbon Dioxide 28 mmol/L (22-29); Chloride 108 mmol/L (98-107); Creatinine Clr Calc Pharmacy 70.2913; Glucose 131 mg/dL (65-115); Osmolality Calculated 303 mOsm/kg (285-295); Potassium 3.9 mmol/L (3.5-5.1); Sodium 144 mmol/L (136-145)
[2025-06-16] MEDS: methylPREDNISolone sod succ 125 mg/2 mL INJ 40 MG IVP ×2 (04:34→11:50)
[2025-06-16] MEDS: thiamine 100 mg/mL 2mL SDV 200 MG IVP ×3 (06:11→22:14)
--- NOTE | 2025-06-16 07:46 | PC.NURSE ---
Report was given to LILO Camarena in [facility]. Patient was transferred with all their belongings. Patient was stable during transfer.
[2025-06-16] MEDS: multivitamin therapeutic Tablet 1 TAB PO (08:13)
[2025-06-16] MEDS: pantoprazole 40 mg SDV IVP ×2 (11:51→22:14)
[2025-06-16] MEDS: FUROsemide 10 mg/mL SDV 2mL 20 MG IVP ×2 (11:51→22:14)
--- NOTE | 2025-06-16 12:37 | P.PN_ITS ---
Subjective 2 Subjective: Oxygen requirement is stable at 2 L/min. Blood pressure trending towards hypertension today at 189/78 at the time of this assessment. Patient reports feeling dyspneic with exerting from bathroom to bed. He used a walker to ambulate. Medications: Reviewed: Yes Vitals/I&O/Wt Last Vital Signs Temp 97.7 F 06/16/25 11:18 Pulse 98 06/16/25 11:18 Resp 19 H 06/16/25 11:18 BP 189/78 06/16/25 11:18 Pulse Ox 98 06/16/25 11:18 O2 Del Method Nasal Cannula 06/16/25 11:18 O2 Flow Rate 3 06/16/25 08:00 FiO2 28 06/15/25 03:49 06/15/25 06/16/25 06/16/25 22:59 06:59 14:59 Intake Total 530 / 1540 50 / 1590 Output Total 1500 / 1500 1000 / 2500 Balance -970 / 40 -950 / -910 Weight last 48 hrs Weight 85.049 kg Weight 85.049 kg Physical Exam 2 Narrative: General: No acute distress, AO x3 HEENT: PERRLA, pupils bilaterally equal and reactive, pallors not present Chest: Crackles to auscultation bilaterally lower lobes. CVS: S1-S2 regular, no murmurs, no tachycardia, no gallops, no rubs Abdomen: Soft, nontender, no organomegaly, bowel sounds present Neuro: No focal deficits, no facial deformity, AO x3, power 5/5 in all limbs Urinary Catheter Management: Dumont: Cath Placed During This Visit: yes, but has since been removed by the nurse Reason for Continuing Indwelling Catheter: Accurate Measurement of Urinary Output in Critically Ill Patients Urinary Catheter Date of Insertion: 06/12/25 Urinary Catheter Time of Insertion: 02:50 Date Urinary Catheter Removed: 06/15/25 Time Urinary Catheter Discontinued: 15:10 Data 06/16/25 03:08 06/16/25 03:08 Micro: Microbiology 06/13/25 10:50 Urine Culture - Final Urine,Clean Catch A&P Assessment and plan 1. Hyponatremia: 2. Sepsis: 3. CAD (coronary artery disease): 4. Pulmonary emphysema, unspecified emphysema type: 5. Lactic acidosis: 6. NSTEMI (non-ST elevated myocardial infarction): 7. Iron deficiency anemia: 8. Acute hypoxic respiratory failure: 9. Acute encephalopathy: 10. Alcohol withdrawal delirium: 11. Pneumonia: 12. Septic shock: 13. CHF exacerbation: Plan: Acute hypoxic respiratory failure - Multifactorial - COPD exacerbation - Secondary to pneumonia - With septic shock Plan -Continue BiPAP therapy -Currently Levophed at 2, maintain MAP greater than 65, currently off Levophed -Monitor urine output -Monitor respiratory status closely -DuoNeb -Budesonide -Solu-Medrol -Broaden antibiotic coverage to vancomycin -Zosyn -Full code -Lovenox for DVT prophylaxis Sepsis, septic shock secondary to pneumonia Lactic acidosis, Acute encephalopathy -Multifactorial from hypoxemia, pneumonia -Component of hyponatremia -Alcohol withdrawal -Possible Warnicke's encephalopathy? Currently on thiamine -Neurochecks -CIWA protocol -Aspiration precautions - Currently on Precedex for agitation Alcohol withdrawal -CIWA protocol -Will place on scheduled thiamine 200 mg IV every 8 hours - Precedex History of CAD Acute on chronic anemia, monitor - Protonix Hyponatremia -Likely beers [place] Plan for today, bowel regimen, lactulose, IV antibiotics, IV steroids, IV antibiotics, PT OT, currently on Precedex drip, try dysphagia level 4 diet, aspiration precautions June 15, 2025 70-year-old male with a history of alcohol abuse presented to the hospital on 06/13/2025 with shortness of breath. Apparently he also had altered mental status at home. He was recently on a prednisone taper as an outpatient. He was admitted to the hospital due to concern for pneumonia. CT of the chest showed a small right lower lobe opacity however this appears to be out of proportion to his symptoms. For COPD exacerbation he is receiving steroids and scheduled nebulization. He was on Precedex for acute alcohol withdrawal. Antibiotics were changed from ceftriaxone and azithromycin to piperacillin/tazobactam and vancomycin yesterday. Will discontinue vancomycin today. There was concern for potential aspiration therefore speech therapy assessment has been ordered. Modified barium swallow was recommended which will be completed tomorrow. Patient is off Precedex today. Will continue CIWA monitoring and as needed Ativan as needed. His mental status is much improved today. He has been able to be weaned off of Precedex. He is alert awake oriented x 3. Patient reports prior episodes of hepatic encephalopathy requiring hospital admission though ammonia is currently normal on this visit. Discontinue lactulose as patient has not developed diarrhea and ammonia is normal. Transfer out of ICU to [facility] today. Add metoprolol 12.5 mg p.o. twice daily to for sinus tachycardia with heart rate up to 120/min. Liver ultrasound to assess for cirrhosis and portal hypertension. D/c catalino June 16, 2025 Patient states that he feels more short of breath today. He was dyspneic on exertion while walking from the bathroom to his bed. Blood pressure trending towards hypertension today. On exam he has crackles to auscultation bilaterally. Review of chart shows that patient has a history of known diastolic grade 2 heart failure. Currently his worsening dyspnea and interval development of crackles appears to be related to acute on chronic diastolic CHF exacerbation. Typically takes Lasix 40 mg p.o. twice daily at home. Will start him on Lasix 20 mg IV every 12 hours. Obtain chest x-ray to assess for development of pulmonary edema. No wheezing on auscultation. Taper down steroids to methylprednisolone 40 mg IV every 24 hours. Continue scheduled nebulization. Heart rate is better controlled after starting metoprolol yesterday. Will increase dose to 25 mg p.o. twice daily since we have more room on the blood pressure today. Monitor with diuresis. Check kidney function and urine output closely. PDMP PDMP Reviewed: Not Reviewed Attestations 2 Medical Necessity Statement*: IV diuresis today for CHF exacerbation Coding Level of Care Code Acute Code for [facility] Diagnoses Hyponatremia E87.1 Sepsis A41.9 CAD (coronary artery disease) I25.10 Pulmonary emphysema, unspecified emphysema type J43.9 Emphysema type: unspecified Lactic acidosis E87.20 NSTEMI (non-ST elevated myocardial infarction) I21.4 Iron deficiency anemia D50.9 Acute hypoxic respiratory failure J96.01 Acute encephalopathy G93.40 Alcohol withdrawal delirium F10.931 Pneumonia J18.9 Septic shock A41.9; R65.21 CHF exacerbation I50.9
--- NOTE | 2025-06-16 12:40 | XR_ITS ---
WS: [id number] Portable AP upright chest, 06/16/2025 Clinical Data: assess pulm edema Comparison: Portable chest, 06/12/2025 Findings: No nodules, masses or effusions are seen. The heart is normal. The pulmonary vascularity is not increased. No pneumonia or pneumothorax is seen. The diaphragms are flattened. The aortic arch shows tortuosity. The trachea is not narrow. XR/XR chest 1V portable [id number] Impression: Atherosclerosis and hyperinflation.
--- NOTE | 2025-06-16 14:26 | FL_ITS ---
WS: [id number] Modified barium swallow, 06/16/2025 Clinical Data: Oropharyngeal dysphagia Comparison: None. Fluoroscopy time: 2min [id number] # of spot films: Findings: The patient showed premature spillage to the vallecula with thin liquids. There was no aspiration or penetration. There was minimal pharyngeal residue. The barium tablet moved normally from the oral cavity into the hypopharynx, then the esophagus and finally the stomach. FL/FL barium swallow modifd [id number] Impression: Negative barium swallow.
[2025-06-17] VITALS (14 sets, daily range): BP systolic 107–186; BP diastolic 69–88; PULSE 71–93; RESP 16–19; TEMP 36.2–36.7; O2SAT 90–98
[2025-06-17] MEDS: piperacillin-tazobactam 3.375 GM in sodium chloride 0.9% (plus) 50 ML IV ×2 (01:39→08:04)
[2025-06-17] MEDS: thiamine 100 mg/mL 2mL SDV 200 MG IVP (04:57)
[2025-06-17 05:02] LABS: Hematocrit 29.0 % (37-53); Hemoglobin 8.70 g/dL (11.27-16.99); Mean Corpuscular HGB Conc 30.0 g/dL (30-55); Mean Corpuscular Hemoglobin 26.0 pg (27-33); Mean Corpuscular Volume 86.6 fl (82-101); Nucleated Red Blood Cells % 0 %; Platelet Count 222 10^3/cmm (157-399); Red Blood Count 3.35 10^6/uL (3.85-5.65); White Blood Count 7.87 10^3/uL (3.29-11.43)
[2025-06-17 05:24] LABS: Alanine Aminotransferase 40 U/L (0-41); Albumin Level 3.5 g/dL (3.5-5.2); Alkaline Phosphatase 38 U/L (40-130); Blood Urea Nitrogen 21 mg/dL (8-23); Calcium 8.6 mg/dL (8.5-10.5); Carbon Dioxide 32 mmol/L (22-29); Chloride 104 mmol/L (98-107); Creatinine Clr Calc Pharmacy 70.2913; Globulin 2.2 g/dL (1.3-4.6); Glucose 90 mg/dL (65-115); Osmolality Calculated 301 mOsm/kg (285-295); Sodium 144 mmol/L (136-145); Total Protein 5.7 g/dL (6.6-8.7)
[2025-06-17 05:53] LABS: Anion Gap 11.5 (5-19); Aspartate Amino Transferase 36 U/L (0-40); Potassium 3.5 mmol/L (3.5-5.1)
[2025-06-17] MEDS: multivitamin therapeutic Tablet 1 TAB PO (08:04)
[2025-06-17] MEDS: methylPREDNISolone sod succ 125 mg/2 mL INJ 40 MG IVP (10:21)
[2025-06-17] MEDS: pantoprazole 40 mg SDV IVP (10:21)
[2025-06-17] MEDS: FUROsemide 10 mg/mL SDV 2mL 20 MG IVP (10:21)
--- NOTE | 2025-06-17 11:32 | PC.SOCIAL ---
IMM Updated Updated pt on IMM. No questions voiced. Provided pt a copy. Initialed, dated, & timed a copy & placed in chart.
[2025-06-17] MEDS: hyDRALAzine 20 mg/mL INJ 1 mL 10 MG IVP (12:35)
--- NOTE | 2025-06-17 17:55 | PM.DCS ---
Discharge Providers Date of Admission: 06/12/25 22:17 Date of Discharge: June 22, 2025 Attending Provider at Admission: Sriram Rodriguez MD Attending Provider at Discharge: Jo Ann Wang MD Primary Care Provider: Osiris Quispe NP Diagnoses at Discharge Discharge Diagnosis 1. Hyponatremia: 2. Sepsis: 3. CAD (coronary artery disease): 4. Pulmonary emphysema, unspecified emphysema type: 5. Lactic acidosis: 6. NSTEMI (non-ST elevated myocardial infarction): 7. Iron deficiency anemia: 8. Acute hypoxic respiratory failure: 9. Acute encephalopathy: 10. Alcohol withdrawal delirium: 11. Pneumonia: 12. Septic shock: 13. CHF exacerbation: Reason for Visit Reason for Visit: sob Hospital Course Hospital Course 70-year-old male with a history of alcohol abuse presented to the hospital on 06/13/2025 with shortness of breath. he reports also had altered mental status at home. He was recently on a prednisone taper as an outpatient. He was admitted to the hospital due to concern for pneumonia. CT of the chest showed a small right lower lobe opacity however this appears to be out of proportion to his symptoms. For COPD exacerbation he received steroids and scheduled nebulization. He was on Precedex for acute alcohol withdrawal. Antibiotics were changed from ceftriaxone and azithromycin to piperacillin/tazobactam and vancomycin. There was concern for potential aspiration therefore speech therapy assessment was 0rdered. Modified barium swallow was recommended which showed no obvious aspiration . He needed to be on precedex initially which was changed to CIWA monitoring and as needed Ativan as needed. His mental status improved significantly. Ammonia level was normal. There was no sign of liver cirrhosis. He receoived diuresis with iv lasix. Overall patient is much improved today, ambulating with a walker and stable for discharge back to home with Physical Exam Narrative: General: No acute distress, AO x3 HEENT: PERRLA, pupils bilaterally equal and reactive, pallors not present Chest: Normal vesicular breath sounds, no added sounds, equal good air entry bilaterally CVS: S1-S2 regular, no murmurs, no tachycardia, no gallops, no rubs Abdomen: Soft, nontender, no organomegaly, bowel sounds present Neuro: No focal deficits, no facial deformity, AO x3, power 5/5 in all limbs Urinary Catheter Management: Dumont: Cath Placed During This Visit: yes, but has since been removed by the nurse Reason for Continuing Indwelling Catheter: Accurate Measurement of Urinary Output in Critically Ill Patients Urinary Catheter Date of Insertion: 06/12/25 Urinary Catheter Time of Insertion: 02:50 Date Urinary Catheter Removed: 06/15/25 Time Urinary Catheter Discontinued: 15:10 Discharge Data Studies Completed and Pending Completed Studies During Hospitalization Category Date Time Status CTA chest [CT angio chest PE protcl [id number]] Stat Cat Scan 06/12/25 22:18 Completed CXRP [XR chest 1V portable [id number]] Routine Exams 06/16/25 12:40 Completed FL barium swallow modifd [id number] Routine Exams 06/16/25 14:26 Completed XR chest 1V portable [id number] Stat Exams 06/12/25 20:37 [place] liver [id number] Routine Ultrasound 06/15/25 16:41 Completed Radiology Impressions Chest CTA 06/12/25 22:18 IMPRESSION: 1. No pulmonary embolism. 2. Evidence of emphysema and COPD. 3. Small anterior right upper lobe lung opacity could relate to pneumonia. COMMENTS: The presence of pulmonary emphysema on CT is an independent risk factor for lung cancer. In the absence of a history or active diagnosis of lung cancer, it is recommended that this patient with emphysema be evaluated for enrollment in a low dose CT lung cancer screening program. Liver Ultrasound 06/15/25 16:41 IMPRESSION: No acute findings. Chest X-Ray 06/16/25 12:40 Impression: Atherosclerosis and hyperinflation. Modified Barium Swallow 06/16/25 14:26 Impression: Negative barium swallow. Laboratory Results WBC 7.87 10^3/uL (3.29-11.43) 06/17/25 04:11 RBC 3.35 10^6/uL (3.85-5.65) L 06/17/25 04:11 Hgb 8.70 g/dL (11.27-16.99) L 06/17/25 04:11 Hct 29.0 % (37-53) L 06/17/25 04:11 MCV 86.6 fl (82-101) 06/17/25 04:11 MCH 26.0 pg (27-33) L 06/17/25 04:11 MCHC 30.0 g/dL (30-55) 06/17/25 04:11 RDW 18.0 % (12.1-15.1) H 06/17/25 04:11 Plt Count 222 10^3/cmm (157-399) 06/17/25 04:11 MPV 9.6 fL (7.4-10.4) 06/17/25 04:11 Neut % (Auto) 78.0 % 06/17/25 04:11 Lymph % (Auto) 11.9 % 06/17/25 04:11 [place] % (Auto) 9.5 % 06/17/25 04:11 Eos % (Auto) 0.0 % 06/17/25 04:11 Baso % (Auto) 0.0 % 06/17/25 04:11 Neut # (Auto) 6.13 10^3/uL (1.8-7.7) 06/17/25 04:11 Lymph # (Auto) 0.9 10^3/uL (0.8-4.8) 06/17/25 04:11 [place] # (Auto) 0.8 10^3/uL (0.2-0.9) 06/17/25 04:11 Eos # (Auto) 0.0 10^3/uL (0.0-0.8) 06/17/25 04:11 Baso # (Auto) 0.0 10^3/uL (0.0-0.1) 06/17/25 04:11 Nucleated RBC % (auto) 0 % 06/17/25 04:11 Nucleated RBCs # 0.0 /100WBC 06/17/25 04:11 Specimen Type Arterial 06/13/25 09:45 Sample Site Radial, right 06/13/25 09:45 ABG pH 7.37 (7.35-7.45) 06/13/25 09:45 ABG pCO2 37.5 mmHg (35-45) 06/13/25 09:45 ABG pO2 84.3 mmHg (80.0-100.0) 06/13/25 09:45 ABG PO2/FiO2 Ratio 281 06/13/25 09:45 ABG HCO3 21.7 mmol/L (22-26) L 06/13/25 09:45 ABG O2 Saturation > 99.1 06/12/25 21:03 ABG Base Excess -3.3 mmol/L (-2.0-2.0) L 06/13/25 09:45 Maurice Test Pos 06/13/25 09:45 A-a O2 Gradient 5.0 mmHg (5-10) 06/12/25 21:03 Hematocrit 23.7 % (42-52) L 06/13/25 09:45 Hgb O2 Saturation 96.7 % (95-100) 06/12/25 21:03 Carboxyhemoglobin 1.4 %THgb (0.4-20.1) 06/12/25 21:03 Methemoglobin 1.3 % (0.4-1.5) 06/12/25 21:03 Total Hemoglobin 8.7 g/dL (14-18) L 06/12/25 21:03 Sodium 120.0 mmol/L (131-143) L 06/12/25 21:03 Potassium 5.4 mmol/L (3.5-5.0) H 06/12/25 21:03 Glucose 84.0 mg/dL (70-115) 06/12/25 21:03 Ionized Calcium 1.2 mmol/L (1.1-1.4) 06/12/25 21:03 O2 Delivery Device Bipap 06/13/25 09:45 O2 Liters/Min 2.0 % 06/12/25 21:03 FiO2 30.0 % 06/13/25 09:45 Eyelet Machine Operator ID [id number] 06/13/25 09:45 Sodium 144 mmol/L (136-145) 06/17/25 04:11 Potassium 3.5 mmol/L (3.5-5.1) 06/17/25 04:11 Chloride 104 mmol/L (98-107) 06/17/25 04:11 Carbon Dioxide 32 mmol/L (22-29) H 06/17/25 04:11 Anion Gap 11.5 (5-19) 06/17/25 04:11 BUN 21 mg/dL (8-23) 06/17/25 04:11 Creatinine 1.0 mg/dL (0.7-1.2) 06/17/25 04:11 GFR Calculation 73.9 mL/min (90-130) L 06/17/25 04:11 Glucose 90 mg/dL (65-115) 06/17/25 04:11 Calculated Osmolality 301 mOsm/kg (285-295) H 06/17/25 04:11 Lactic Acid 3.9 mmol/L (0.5-2.2) H 06/12/25 21:19 Lactic Acid (Sepsis) 3.0 mmol/L (0.5-2.2) H 06/13/25 00:11 Lactate 1.3 mmol/L (0.5-2.2) 06/13/25 10:00 Calcium 8.6 mg/dL (8.5-10.5) 06/17/25 04:11 Phosphorus 2.3 mg/dL (2.5-4.5) L 06/14/25 04:04 Magnesium 2.2 mg/dL (1.7-2.3) 06/14/25 04:04 Total Bilirubin 0.3 mg/dL (0.15-1.2) 06/17/25 04:11 AST 36 U/L (0-40) 06/17/25 04:11 ALT 40 U/L (0-41) 06/17/25 04:11 Alkaline Phosphatase 38 U/L (40-130) L 06/17/25 04:11 Ammonia 24 umol/L (16-60) 06/14/25 12:48 Troponin T Baseline 20 ng/L (0-15) H 06/13/25 10:00 Troponin T 120 Minute 19.85 ng/L (0-15) H 06/13/25 11:36 Delta Troponin T -0.15 ABS# (0-10) L 06/13/25 11:36 Troponin T Hi Sens 6Hr 21.38 ng/L (0-15) H 06/13/25 16:05 Troponin T Hi Sens 6Hr Delta 1.38 ng/L (0-12) 06/13/25 16:05 C-Reactive Protein 3.6 mg/L (0.0-4.9) 06/13/25 10:00 NT-Pro-B Natriuret Pep 3232 pg/mL (0-125) H 06/12/25 21:19 Total Protein 5.7 g/dL (6.6-8.7) L 06/17/25 04:11 Albumin 3.5 g/dL (3.5-5.2) 06/17/25 04:11 Globulin 2.2 g/dL (1.3-4.6) 06/17/25 04:11 Procalcitonin 0.09 ng/mL (0-0.5) 06/13/25 10:00 TSH 0.50 uIU/mL (0.27-4.20) 06/14/25 04:04 Urine Color Yellow (Yellow) 06/13/25 10:50 Urine Appearance Clear (CLEAR) 06/13/25 10:50 Urine pH 6.0 (5-7) 06/13/25 10:50 Ur Specific [place] 1.020 (1.005-1.030) 06/13/25 10:50 Urine Protein 1+ (Negative) A 06/13/25 10:50 Urine Glucose (UA) Negative (Normal) 06/13/25 10:50 Urine Ketones Negative (Negative) 06/13/25 10:50 Urine Blood 2+ (Negative) A 06/13/25 10:50 Urine Nitrate Negative (Negative) 06/13/25 10:50 Urine Bilirubin Negative (Negative) 06/13/25 10:50 Urine Urobilinogen 0.2 mg/dL (Negative) 06/13/25 10:50 Ur Leukocyte Esterase Negative (Negative) 06/13/25 10:50 Urine RBC 25-40 /hpf (0-2) H 06/13/25 10:50 Urine WBC 0-4 /hpf (0-5) H 06/13/25 10:50 Ur Squamous Epith Cells 0-4 /hpf (0-5) H 06/13/25 10:50 Amorphous Sediment Not Reportable 06/13/25 10:50 Urine Bacteria Trace /hpf (NONE) 06/13/25 10:50 Nasal MRSA (PCR) Not detected (Negative) 06/15/25 19:15 Blood Type O Positive 06/14/25 13:37 Rho(D) Type Rh positive 06/14/25 13:37 Antibody Screen Negative 06/14/25 13:37 Crossmatch See Detail 06/14/25 13:37 Vitals Last Vital Signs Temp 98.0 F 06/17/25 11:17 Pulse 90 06/17/25 13:55 Resp 18 06/17/25 13:46 BP 107/69 06/17/25 13:16 Pulse Ox 95 06/17/25 13:46 O2 Del Method Nasal Cannula 06/17/25 13:46 O2 Flow Rate 2 06/17/25 13:46 FiO2 28 06/15/25 03:49 Discharge Plan Discharge Patient Disposition: Home Health Service Condition: Stable Prescriptions: New thiamine HCl (vitamin B1) 100 mg capsule 100 mg PO DAILY Qty: 30 0RF prednisone 10 mg tablet 40 mg PO DAILY Qty: 5 0RF Continued lisinopril 40 mg tablet 40 mg PO DAILY pantoprazole 40 mg tablet,delayed release (DR/EC) 40 mg PO BID 42 Days Qty: 84 1RF Breztri Aerosphere 160-9-4.8 mcg/actuation HFA aerosol inhaler 2 inh inhalation BID Qty: 10.7 6RF amlodipine 5 mg tablet 5 mg PO BID Qty: 180 3RF albuterol sulfate 2.5 mg /3 mL (0.083 %) solution for nebulization 2.5 mg inhalation TID albuterol sulfate 90 mcg/actuation HFA aerosol inhaler 2 inh INHALATION Q4H PRN (Reason: shortness of breath or wheezing) Qty: 18 0RF naproxen 500 mg Tablet 500 mg PO BID PRN (Reason: Pain (Scale Score 4-6)) latanoprost 0.005 % drops 1 drp ophthalmic (eye) QPM prednisone 10 mg tablet See Rx Instructions .ROUTE .COMPLEX Rx Instructions: TAKE FOUR TABLETS BY MOUTH DAILY FOR FOUR DAYS, TAKE THREE TABLETS BY MOUTH DAILY FOR FOUR DAYS, TAKE TWO TABLETS BY MOUTH DAILY FOR FOUR DAYS, THEN TAKE ONE TABLET BY MOUTH ONCE DAILY FOR FOUR DAYS ipratropium-albuterol 0.5 mg-3 mg(2.5 mg base)/3 mL solution for nebulization 3 ml INHALATION Q4H PRN (Reason: Shortness Of Breath Or Wheezing) potassium chloride 20 mEq tablet extended release 20 meq PO DAILY furosemide 40 mg tablet 40 mg PO BID Discharge Order = DC NOW: Discharge Order (Routine); Ordered 06/17/25 Ordered By: Jo Ann Wang Referrals: [facility] [Outside] Osiris Quispe NP [Primary Care Provider, Unknown] - 06/24/25 12:00 pm Referral Note: hospital discharge follow up, reassess lasix dosing Patient Instructions: Prednisone (By mouth) (Prednisone Intensol, Prednicot, Deltasone, Kaylyn), Thiamine (By mouth) ([facility] Vitamin B1, Nature's..., Amoxicillin/Clavulanate Potassium (By mouth) (Augmentin, Augmentin..., Heart Failure (DC), COPD (Chronic Obstructive Pulmonary Disease) (DC), Pneumonia (DC), CHF Stoplight, COPD Stoplight, Opioid Safety, Patient Portal & Roverto Instructions Discharge Attestations Time Spent in Discharge Care*: greater than 30 min Quality Metrics Clinical Quality Measures [ No reported AMI, CVA or VTE this stay] Coding Level of Care Code Acute Code for Chg Fwd Diagnoses Hyponatremia E87.1 Sepsis A41.9 CAD (coronary artery disease) I25.10 Pulmonary emphysema, unspecified emphysema type J43.9 Emphysema type: unspecified Lactic acidosis E87.20 NSTEMI (non-ST elevated myocardial infarction) I21.4 Iron deficiency anemia D50.9 Acute hypoxic respiratory failure J96.01 Acute encephalopathy G93.40 Alcohol withdrawal delirium F10.931 Pneumonia J18.9 Septic shock A41.9; R65.21 CHF exacerbation I50.9
== END 2025-06-17 14:08 | disposition home health service (06) | DRG 871 ==
LOC: ER 22:37 → ICU 22:43 → MEDSURG 06-16 07:31
PROVIDERS: Family Medicine; Admitting Provider Internal Medicine; Emergency Provider Emergency Medicine; PCP Nurse Practitioner Family; Visit Provider Student in an Organized Health Care Education/Training Program
DX: A41.9 Sepsis, unspecified organism (principal); I21.4 Non-ST elevation (NSTEMI) myocardial infarction; J18.9 Pneumonia, unspecified organism; J96.01 Acute respiratory failure with hypoxia; R65.21 Severe sepsis with septic shock; I69.351 Hemiplegia and hemiparesis following cerebral infarction affecting right dominant side; J44.1 Chronic obstructive pulmonary disease with (acute) exacerbation; J44.0 Chronic obstructive pulmonary disease with (acute) lower respiratory infection; N17.9 Acute kidney failure, unspecified; E87.20 Acidosis, unspecified; F10.231 Alcohol dependence with withdrawal delirium; G93.40 Encephalopathy, unspecified; D50.9 Iron deficiency anemia, unspecified; I50.9 Heart failure, unspecified; I11.0 Hypertensive heart disease with heart failure; I25.10 Atherosclerotic heart disease of native coronary artery without angina pectoris; F17.290 Nicotine dependence, other tobacco product, uncomplicated; J43.9 Emphysema, unspecified; K21.9 Gastro-esophageal reflux disease without esophagitis; Z79.899 Other long term (current) drug therapy; Z98.61 Coronary angioplasty status; Z99.81 Dependence on supplemental oxygen
CPT/HCPCS: 36415; 36430; 36600; 51702; 71045; 71275; 74230; 76705; 80048; 80051; 80053; 81001; 82140; 82330; 82803; 82805; 83605; 83735; 83880; 84100; 84145; 84443; 84484; 85025; 86140; 86850; 86900; 86920; 87040; 87086; 92507; 92523; 92610; 92611; 93005; 94002; 94640; 94660; 96365; 96372; 96375; 97165; 99285; J0360; J0456; J0696; J1650; J1938; J2060; J2270; J2470; J2543; J2919; J3372; J3373; J3411; J7030; J7040; J7050; J7611; J7613; J7626; J9999; P9016

== ENCOUNTER 2025-06-30 17:47 | Emergency (ER) | payer MEDICARE, MEDICAID, SELFPAY ==
[2025-06-30 17:47] VITALS: BP 118/55; PULSE 100; RESP 16; TEMP 36.8; O2SAT 95; BMI 26.6
--- OUTSIDE RECORDS SUMMARY | 2025-06-30 17:59 | XMS_ITS | Clinical Summary ---
Author Organization 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
--- OUTSIDE RECORDS SUMMARY | 2025-06-30 17:59 | XMS_ITS | Clinical Summary ---
Author Organization [facility] Address [address] 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[employer] Gender Identity Not on file Sexual Orientation Not on file Plan of Treatment Upcoming Encounters Date Type Department Care Team (Late st Contact Info) Description 07/22/2025 10:30 AM CDT Office Visit [facility] [address] [place] [id number] George Nieto MD [address] [place] [id number] Health Maintenance Due Date Last Done Comments [...] - 1-dose 75+ series) 2030 Care Teams Technical Education Teacher Relationship Specialty Start Date End Date Adilson Brewer PA [address] [place] [address] PCP - General 06/09/10
--- NOTE | 2025-06-30 18:10 | W.ED.GENADLT ---
HPI - General Adult General: Chief complaint: General Medical Stated complaint: Unable to feel pulse in left radial History of Present Illness: Patient is a 70-year-old male with HTN, PAD, presents after home health nurse could not obtain the his left radial pulse. This was confirmed by EMS. Patient states he has some numbness and tingling that is somewhat baseline, however no extensive pain, redness, whiteness. No recent fevers. He did have recent illness that he was hospitalized for at this facility. Associated symptoms: Deny chest pain, confusion, dyspnea, headache(s), malaise, nausea or palpitations Related Data Home Medications ?Medication ?Instructions ?Recorded ?Confirmed lisinopril 40 mg tablet 40 mg PO DAILY 09/16/20 06/13/25 albuterol sulfate 2.5 mg/3 mL 2.5 mg inhalation TID 12/21/24 06/13/25 (0.083 %) solution for nebulization naproxen 500 mg tablet 500 mg PO BID PRN Pain (Scale 01/20/25 06/13/25 Score 4-6) furosemide 40 mg tablet 40 mg PO BID 06/13/25 06/13/25 ipratropium 0.5 mg-albuterol 3 mg 3 ml inhalation Q4H PRN Shortness 06/13/25 06/13/25 (2.5 mg base)/3 mL nebulization Of Breath Or Wheezing soln latanoprost 0.005 % eye drops 1 drp ophthalmic (eye) QPM 06/13/25 06/13/25 potassium chloride 20 mEq 20 meq PO DAILY 06/13/25 06/13/25 tablet,extended release prednisone 10 mg tablet See Rx Instructions .Route .COMPLEX 06/13/25 06/13/25 Previous Rx's ?Medication ?Instructions ?Recorded budesonide 160 mcg-glycopyr 9 2 inh inhalation BID #10.7 grams 03/05/24 mcg-formot 4.8 mcg/actuation HFA inhaler (Breztri Aerosphere) pantoprazole 40 mg tablet,delayed 40 mg PO BID 6 weeks #84 tabs 06/16/24 release amlodipine 5 mg tablet 5 mg PO BID #180 tabs 09/17/24 albuterol sulfate 90 mcg/actuation 2 inh inhalation Q4H PRN shortness 05/28/25 aerosol inhaler of breath or wheezing #18 grams prednisone 10 mg tablet 40 mg (4 x 10 mg) PO DAILY #5 tabs 06/17/25 thiamine HCl (vitamin B1) 100 mg 100 mg PO DAILY #30 caps 06/17/25 capsule Allergies Allergy/AdvReac Type Severity Reaction Status Date / Time No Known Allergies Allergy Verified 02/02/25 10:01 Review of Systems General: Reports: 10 or more systems reviewed and unremarkable except in HPI and below Const: Denies: fever(s), chills, body aches, change in appetite, fatigue or malaise Card: Denies: chest pain or palpitations Resp: Denies: dyspnea, productive cough or non-productive cough GI: Denies: abdominal pain or nausea : Denies: flank pain or difficulty urinating Musc: Reports: extremity pain (mild without change, according to patient); Denies: neck pain or back pain Neuro: Denies: headache(s), numbness in extremities, weakness in extremities, lack of coordination, difficulty walking, dizziness, vertigo or confusion Psych: Reports: anxiety; Denies: depression, hopelessness, suicidal ideation or homicidal ideation Endo: Denies: polyuria or polydipsia PFSH ED PFSH: Medical History (Updated 06/30/25 @ 23:40 by VERONA Lea) Abnormal CT lung screening 04/2023, repeat scan 07/2023 without same findings History of myocardial perfusion scan 04/2023 no EKG changes, low probability coronary ischemia History of echocardiogram 03/2023 EF 55-60% History of PFTs 06/2023 severe obstructive disease with no significant change with bronchodilators Osteoarthritis GERD (gastroesophageal reflux disease) Hypertension COPD with emphysema CVA (cerebral vascular accident) right sided weakness, mild residual Surgical History History of coronary angioplasty ~2009 or earlier in [place], [place], had angioplasty of several vessels, no stents per him Social History (Updated 06/13/25 @ 00:26 by Sriram Rodriguez MD) Smoking and tobacco/nicotine status: current every day tobacco/nicotine user cigarettes and e-cigarettes E-Cigarette Details: e-cigarette E-cig/vape details: unknown if has nicotine- still smokes cigaretts but less Second hand smoke exposure: Yes Alcohol intake: current Alcohol intake frequency: 3 or more drinks per day Alcohol type: beer Substance/Drug Use: former Additional social history: Still smokes 6 to 8 cigarettes a day wants full CODE STATUS lives alone this was discussed today 06/13/2025 with Sriram Rodriguez MD Lives independently: Yes Household members: none Marital status: Single service: Yes Current occupational status: 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 Do you think of yourself as: Straight/Heterosexual Current gender identity: Male Physical Exam Const: COMMON NORMALS: no acute distress, average body habitus, patient oriented x3, no limitations, healthy appearing and alert HENMT: COMMON NORMALS: normocephalic and atraumatic HEAD & SCALP: normocephalic and atraumatic Eye: COMMON NORMALS: Equal, round and reactive pupils present, EOMs intact bilaterally, conjunctivae normal and no scleral icterus CONJUNCTIVA: Yes conjunctivae normal PUPIL: Yes Equal, round and reactive pupils present Neck/C-Spine: COMMON NORMALS: full ROM and no lymphadenopathy Lymph: LYMPHATIC: no lymphadenopathy noted Chest: COMMONS NORMALS: normal inspection of the chest Resp: COMMON NORMALS: normal respiratory effort, No retractions and clear to auscultation bilaterally AUSCULTATION: clear to auscultation bilaterally Cardio: COMMON NORMALS: regular rate and regular rhythm RATE: regular rate RHYTHM: regular rhythm GI: COMMON NORMALS: Normal to inspection, nondistended, normoactive bowel sounds present, Soft to palpation and non-tender PALPATION: Yes Soft to palpation : COMMON NORMALS: Yes no CVA tenderness BLADDER/KIDNEY EXAM: Yes no CVA tenderness Back/Pelvis: COMMON NORMALS: no CVA tenderness Extremity: NARRATIVE EXTREMITY EXAM: Radial pulses are present bilateral, left radial +1, right radial pulse 2 Neuro: COMMON NORMALS: patient oriented x3 SENSORIUM/ORIENTATION: Yes alert Psych: COMMON NORMALS: mental status grossly normal, Normal thought process present, cooperative, normal affect and speech normal SPEECH: Yes normal speech THOUGHT PROCESS: Normal thought process present Skin: COMMON NORMALS: no rashes or lesions noted and no wounds GENERAL SKIN EXAM: no rashes or lesions noted Course Reevaluation(s): Reevaluation #1: Sodium is low again at 126. Discussed with patient, he admits to 4 beers today. Vital Signs: Vital signs: Vital Signs Temperature 98.3 F 06/30/25 17:47 Pulse Rate 95 09/02/25 21:42 Respiratory Rate 16 06/30/25 20:00 Blood Pressure 138/71 06/30/25 21:42 Pulse Oximetry 97 06/30/25 21:42 Oxygen Delivery Me thod Room Air 06/30/25 19:38 MDM - General Adult Medical Decision Making I was able to feel a pulse on his left radial, however nursing continued not to be able to feel this as well as the duplex at bedside they were unable to discern the heart rate. What was safest for the patient is to have a duplex scan of his left upper extremity that does show no high-grade stenosis. Patient will be discharged home with low-sodium precautions, and close follow-up. Discussed patient and his overall drinking and placed him on a fluid restriction Lab Data 06/30/25 18:02 06/30/25 18:02 Radiology Impressions Duplex Scan Upper Extremity Artery 06/30/25 18:20 IMPRESSION: Peak systolic velocities as above. No high-grade stenosis of the visualized vessels, although all velocities decreased compared to corresponding right subclavian, nonspecific, could indicate upstream narrowing (ie upstream of left subclavian). Laboratory Results WBC 7.29 10^3/uL (3.29-11.43) 06/30/25 18: RBC 3.79 10^6/uL (3.85-5.65) L 06/30/25 18:02 Hgb 10.30 g/dL (11.27-16.99) L 06/30/25 18:02 Hct 32.5 % (37-53) L 06/30/25 18: MCV 85.8 fl (82-101) 06/30/25 18:02 MCH 27.2 pg (27-33) 06/30/25 18:02 MCHC 31.7 g/dL (30-55) 06/30/25 18:02 RDW 19.7 % (12.1-15.1) H 06/30/25 18:02 Plt Count 188 10^3/cmm (157-399) 06/30/25 18:02 MPV 9.4 fL (7.4-10.4) 06/30/25 18:02 Neut % (Auto) 64.5 % 06/30/25 18:02 Lymph % (Auto) 19.5 % 06/30/25 18:02 Chaves % (Auto) 13.7 % 06/30/25 18:02 Eos % (Auto) 1.4 % 06/30/25 18:02 Baso % (Auto) 0.5 % 06/30/25 18:02 Neut # (Auto) 4.70 10^3/uL (1.8-7.7) 06/30/25 18:02 Lymph # (Auto) 1.4 10^3/uL (0.8-4.8) 06/30/25 18:02 Chaves # (Auto) 1.0 10^3/uL (0.2-0.9) H 06/30/25 18:02 Eos # (Auto) 0.1 10^3/uL (0.0-0.8) 06/30/25 18:02 Baso # (Auto) 0.0 10^3/uL (0.0-0.1) 06/30/25 18:02 Nucleated RBC % (auto) 0 % 06/30/25 18:02 Nucleated RBCs # 0.0 /100WBC 06/30/25 18:02 Sodium 126 mmol/L (136-145) L 06/30/25 18:02 Potassium 4.2 mmol/L (3.5-5.1) 06/30/25 18:02 Chloride 91 mmol/L (98-107) L 06/30/25 18:02 Carbon Dioxide 21 mmol/L (22-29) L 06/30/25 18:02 Anion Gap 18.2 (5-19) 06/30/25 18:02 BUN 14 mg/dL (8-23) 06/30/25 18:02 Creatinine 1.5 mg/dL (0.7-1.2) H 06/30/25 18:02 GFR Calculation 46.3 mL/min (90-130) L 06/30/25 18:02 Glucose 125 mg/dL (65-115) H 06/30/25 18:02 Calculated Osmolality 264 mOsm/kg (285-295) L 06/30/25 18:02 Lactic Acid 2.9 mmol/L (0.5-2.2) H 06/30/25 18:02 Lactic Acid (Sepsis) 1.0 mmol/L (0.5-2.2) 06/30/25 21:11 Calcium 8.7 mg/dL (8.5-10.5) 06/30/25 18:02 Total Bilirubin 0.2 mg/dL (0.15-1.2) 06/30/25 18:02 AST 19 U/L (0-40) 06/30/25 18:02 ALT 22 U/L (0-41) 06/30/25 18:02 Alkaline Phosphatase 49 U/L (40-130) 06/30/25 18:02 Total Protein 6.1 g/dL (6.6-8.7) L 06/30/25 18:02 Albumin 3.6 g/dL (3.5-5.2) 06/30/25 18:02 Globulin 2.5 g/dL (1.3-4.6) 06/30/25 18:02 No radiology studies performed this visit Discharge Plan Discharge Patient Disposition: Home Clinical Impression: Acute hyponatremia, Alcohol misuser in household, Left wrist pain Condition: Stable Prescriptions: No Action lisinopril 40 mg tablet 40 mg PO DAILY pantoprazole 40 mg tablet,delayed release (DR/EC) 40 mg PO BID 42 Days Qty: 84 1RF Breztri Aerosphere 160-9-4.8 mcg/actuation HFA aerosol inhaler 2 inh inhalation BID Qty: 10.7 6RF amlodipine 5 mg tablet 5 mg PO BID Qty: 180 3RF albuterol sulfate 2.5 mg /3 mL (0.083 %) solution for nebulization 2.5 mg inhalation TID albuterol sulfate 90 mcg/actuation HFA aerosol inhaler 2 inh INHALATION Q4H PRN (Reason: shortness of breath or wheezing) Qty: 18 0RF naproxen 500 mg Tablet 500 mg PO BID PRN (Reason: Pain (Scale Score 4-6)) latanoprost 0.005 % drops 1 drp ophthalmic (eye) QPM prednisone 10 mg tablet See Rx Instructions .ROUTE .COMPLEX Rx Instructions: TAKE FOUR TABLETS BY MOUTH DAILY FOR FOUR DAYS, TAKE THREE TABLETS BY MOUTH DAILY FOR FOUR DAYS, TAKE TWO TABLETS BY MOUTH DAILY FOR FOUR DAYS, THEN TAKE ONE TABLET BY MOUTH ONCE DAILY FOR FOUR DAYS ipratropium-albuterol 0.5 mg-3 mg(2.5 mg base)/3 mL solution for nebulization 3 ml INHALATION Q4H PRN (Reason: Shortness Of Breath Or Wheezing) potassium chloride 20 mEq tablet extended release 20 meq PO DAILY furosemide 40 mg tablet 40 mg PO BID thiamine HCl (vitamin B1) 100 mg capsule 100 mg PO DAILY Qty: 30 0RF prednisone 10 mg tablet 40 mg PO DAILY Qty: 5 0RF Discharge Orders: Discharge ED (Routine); Ordered 06/30/25 Ordered By: Gabriella Velazquez Referrals: Osiris Quispe NP [Primary Care Provider, Unknown] - 1-3 days Discharge Diet: As Directed Discharge Activity: Increase activity as tolerated Patient Instructions: Abuse of Alcohol (ED), 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 Set your alarm and call early in the a.m. Return to ED if you develop any confusion, pain in this left arm, or fever greater than 100.4 ?F Print Language: Ukrainian Coding Level of Care Code ED Shoe Shiner for Brett Pope
[2025-06-30 18:13] LABS: Hematocrit 32.5 % (37-53); Hemoglobin 10.30 g/dL (11.27-16.99); Mean Corpuscular HGB Conc 31.7 g/dL (30-55); Mean Corpuscular Hemoglobin 27.2 pg (27-33); Mean Corpuscular Volume 85.8 fl (82-101); Nucleated Red Blood Cells % 0 %; Platelet Count 188 10^3/cmm (157-399); Red Blood Count 3.79 10^6/uL (3.85-5.65); White Blood Count 7.29 10^3/uL (3.29-11.43)
--- NOTE | 2025-06-30 18:20 | USR_ITS ---
PROCEDURE INFORMATION: Exam: US Duplex Left Upper Extremity Arteries Exam date and time: 06/30/2025 6:39 PM Age: 70 years old Clinical indication: Other: No palpable left wrist pulses; Long-term smoker continues smoking; Additional info: No pulse TECHNIQUE: Imaging protocol: Left Real-time ultrasound scan of the arteries of the left upper extremity with 2-D blood scale, color Doppler flow and spectral waveform analysis. COMPARISON: CT angio chest PE protcl [id number] 06/12/2025 10:36 PM FINDINGS: All velocities in cm/s Left subclavian artery: Biphasic waveform, peak systolic 66 Left axillary artery: Biphasic waveform, peak systolic 76. Left brachial artery: Biphasic waveform, peak systolic 66, 65, 62 Left radial artery: Biphasic waveform, peak systolic 41 Left ulnar artery: Biphasic waveform, peak systolic 49 Right subclavian:Triphasic waveform, peak systolic 151 US/[place] [id number] IMPRESSION: Peak systolic velocities as above. No high-grade stenosis of the visualized vessels, although all velocities decreased compared to corresponding right subclavian, nonspecific, could indicate upstream narrowing (ie upstream of left subclavian).
[2025-06-30 18:26] VITALS: PULSE 96; RESP 18; O2SAT 99
--- NOTE | 2025-06-30 18:26 | PC.NURSE ---
DOPPLER TO LEFT WRIST, NO PULSES NOTED BY THIS NURSE. DOPPLER PICKED UP A HEART RATE OF 52 BUT NO SOUND WAS HEART ON MONITOR.
[2025-06-30 18:29] LABS: Alanine Aminotransferase 22 U/L (0-41); Albumin Level 3.6 g/dL (3.5-5.2); Alkaline Phosphatase 49 U/L (40-130); Anion Gap 18.2 (5-19); Aspartate Amino Transferase 19 U/L (0-40); Blood Urea Nitrogen 14 mg/dL (8-23); Calcium 8.7 mg/dL (8.5-10.5); Carbon Dioxide 21 mmol/L (22-29); Chloride 91 mmol/L (98-107); Creatinine Clr Calc Pharmacy 44.2149; Globulin 2.5 g/dL (1.3-4.6); Glucose 125 mg/dL (65-115); Osmolality Calculated 264 mOsm/kg (285-295); Potassium 4.2 mmol/L (3.5-5.1); Sodium 126 mmol/L (136-145); Total Protein 6.1 g/dL (6.6-8.7)
[2025-06-30 18:30] LABS: Lactic Sepsis W/Reflex 2.9 mmol/L (0.5-2.2)
[2025-06-30 19:38] VITALS: BP 119/71; PULSE 91; RESP 18; O2SAT 96
[2025-06-30 19:54] LABS: Reflex Lactate Order REFLEX LACTIC ORDERD
[2025-06-30 20:00] VITALS: BP 136/71; PULSE 97; RESP 16; O2SAT 95
[2025-06-30 21:41] LABS: Lactic Acid level (Lactate) 1.0 mmol/L (0.5-2.2)
[2025-06-30 21:42] VITALS: BP 138/71; PULSE 95; O2SAT 97
== END 2025-06-30 21:43 | disposition home or self-care (01) ==
PROVIDERS: Emergency Provider Physician Assistant; PCP Nurse Practitioner Family
DX: M25.532 Pain in left wrist (principal); E87.1 Hypo-osmolality and hyponatremia; F10.90 Alcohol use, unspecified, uncomplicated; Y90.9 Presence of alcohol in blood, level not specified
CPT/HCPCS: 36415; 80053; 83605; 85025; 93931; 99284